=== PATIENT | male | born 1935 | race Caucasian/White ===

== ENCOUNTER → 2018-01-15 | Day surgery (SDC) | payer MEDICARE ==
[2018-01-11 11:06] VITALS: BMI 24.0
[~2018-01-15] MED LIST: ALPRAZolam 0.25 MG TAB PO PRN; ASPIRIN 325 MG TAB PO ONE; IOPAMIDOL-300 50ML BTL INJ ONE; IOPAMIDOL-370 100ML BTL INJ ONE; IOPAMIDOL-370 50ML BTL INJ ONE; LIDOCAINE 1% (PF) 10MG/ML VIAL SQ ONE; LIDOCAINE 1% INJ 10MG/ML (20 ML MDV) ONE; MIDAZOLAM 2 MG/2 ML VIAL IVP ONE; MIDAZOLAM 2 MG/2 ML VIAL ONE; SODIUM CHLORIDE 0.9% 1,000 ML IV ONE; SODIUM CHLORIDE 0.9% 1,000 ML IV SCH; SODIUM CHLORIDE 0.9% 1,000 ML in EMPTY BAG 1 BAG IV ONE; diphenhydrAMINE 50 MG/ML 1 ML VIAL IVP ONE; diphenhydrAMINE 50 MG/ML 1 ML VIAL ONE
[2018-01-15 10:06] VITALS: TEMP 98.3
--- NOTE | 2018-01-15 14:42 | CC ---
CARDIAC CATHETERIZATION REPORT DATE OF SERVICE: 01/15/2018. PROCEDURE: Left heart catheterization, coronary angiography, selective injection of bypass grafts and left ventriculography. PERFORMED BY: Dr. Swapna Riojas. Moderate conscious sedation time was 44 minutes. Patient was administered Versed and Benadryl in his oxygen saturation, EKG and hemodynamics were monitored closely. CLINICAL INFORMATION: Mr. Messi Pemberton is an 82-year-old gentleman with a recent diagnosis of atrial fibrillation which is persistent to chronic. He also has benign prostatic hypertrophy, status post prostate surgery. In 1996, he underwent aortocoronary bypass surgery with a RIDLEY to LAD, a vein graft to the diagonal, 2 separate vein grafts to the PDA and PLV branches of RCA. The ramus intermedius was disease-free and circumflex was small groove branch which was not grafted. RCA had a significant proximal disease. Surgery was performed in 1996. Because of significant symptoms of angina and a positive stress test with anterior as well as inferolateral reversible defect. He was advised coronary angiography. Risks, benefits, options and rationale were explained. PROCEDURE NOTE: Under local anesthesia and strict aseptic precautions, a 6-Guyanese introducer was placed in the right femoral artery. Using a standard left Paula catheter I performed selective coronary angiography of the left system. A Juan F catheter was used to perform selective coronary angiography of the cachil dehe RCA, the RIDLEY graft, the vein graft to the PDA branch of RCA. The vein graft to the PLV branch of RCA was also cannulated but the vein graft to the diagonal branch could not be located. I also tried with a AR 2 catheter but I did not find the vein graft to the diagonal branch. An LV-gram was performed in 30 degree ALBERT projection. Patient tolerated procedure well. The sheath was taken out and Angio-Seal device used to secure hemostasis and he was sent to the room in a stable condition. CARDIAC CATHETERIZATION FINDINGS: The left ventricular end-diastolic pressure was 8-10 mmHg with a gradient of less than 5 mmHg across the aortic valve. CORONARY ANGIOGRAPHY FINDINGS LEFT MAIN CORONARY ARTERY: There is a 15% stenosis or so in the left main at the ostium. No significant damping. This is a long vessel that trifurcates into LAD circumflex and ramus intermedius. Left main itself has no critical disease but there is an ostial 15%-20% narrowing noted. LEFT ANTERIOR DESCENDING CORONARY ARTERY: This vessel is totally occluded after diagonal branch that has a significant 70%-80% lesion which is chronic. The ramus intermedius is totally occluded and seen as a stump with limited antegrade flow. LEFT POSTERIOR CIRCUMFLEX CORONARY ARTERY: A small caliber vessel which runs mostly in the AV groove has a proximal lesion of 80% also chronic and left and the left circumflex comes off at a very acute angle. The left atrial circumflex also has some diffuse disease. RIGHT CORONARY ARTERY: This vessel is dominant, totally occluded after a conus branch which is free of significant disease. SAPHENOUS VEIN GRAFT TO THE PDA BRANCH OF RCA this graft is totally who has a proximal lesion in the body of the graft. The ostium is free of significant disease. The proximal body a 70% to 80% lesion the size of the graft is good. The insertion site is free of significant disease and this graft opacifies the entire PDA and also goes and fills the distal LAD almost up to the proximal 1/3. The entire LAD that is opacified does not seem to have significant disease. The RCA graft which is actually to the PDA branch of RCA is filling the a PDA branch to some extent. The PLV branch and also the LAD as well. The saphenous vein graft to the PLV branch of RCA this graft is totally occluded , seen as a stump saphenous vein graft to the diagonal branch of LAD. This graft is totally occluded, probably cannot be located. LEFT INTERNAL MAMMARY ARTERY GRAFT TO LAD this graft is widely patent at its origin at the site of insertion in the midportion there is a total occlusion with very limited antegrade flow. The diagonal branch that comes off also has a bridge that is extending from the proximal LAD at the site of insertion and this has a 70-80 percent lesion, but the diagonal is well opacified appears to be a good caliber to good distribution vessel. Lad also feels very late. So the diagonal branch is filling from the LAD graft and LAD insertion site is free of significant disease. Beyond it there is no antegrade flow, but diagonal is opacified and is a graftable vessel. LEFT VENTRICULOGRAM: This was performed in 30 degree ALBERT projection revealed left ventricle is of normal size with preserved contractility and estimated ejection fraction of 50% without any significant segmental wall motion abnormality. There is no significant mitral regurgitation noted. 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 The RIDLEY to LAD is patent but beyond insertion site the LAD is totally occluded, but it goes back and fills the diagonal with an 80% or more lesion which is well opacified. The vein graft to the PDA branch of RCA has a proximal 80% lesion distally. The PDA is free of significant disease and also goes back and fills by collaterals the entire LAD almost up to the proximal 1/3. Saphenous vein graft to the PLV branch of RCA is totally occluded. The saphenous vein graft to the diagonal branch of LAD was not located. LV-gram revealed ejection fraction of 50% without significant wall motion abnormalities, normal filling pressures and no significant gradient across aortic valve. RECOMMENDATION: I am recommending elective surgery but prior to that, we will check the carotid Doppler situation and echocardiogram and also do a vein mapping and also arterial mapping to see if he has enough conduit. He will need at least 3 grafts, one to the diagonal, one to the LAD and one to the PDA and PLV which will be a tricky graft because the same graft could probably be used as well. I discussed my thoughts in detail with the patient and family and I expect he will be discharged later on today and I will request Dr. Juan Mckeon to see the patient with regards to redo bypass surgery. MMODL / IJN: [id number] / MTDJuan
--- NOTE | 2018-01-15 15:11 | US ---
EXAMINATION TYPE: US carotid duplex BILAT DATE OF EXAM: 01/15/2018 COMPARISON: NONE CLINICAL HISTORY: preop open heart. HTN- controlled with meds. No hx if TIA or stroke. EXAM MEASUREMENTS: RIGHT: Peak Systolic Velocity (PSV) cm/sec ----- Right CCA: 100.7 ----- Right ICA: 151.0 ----- Right ECA: 141.5 ICA/CCA ratio: 1.5 RIGHT: End Diastole cm/sec ----- Right CCA: 16.0 ----- Right ICA: 40.6 ----- Right ECA: 0.0 LEFT: Peak Systolic Velocity (PSV) cm/sec ----- Left CCA: 92.0 ----- Left ICA: 93.0 ----- Left ECA: 82.7 ICA/CCA ratio: 1.0 LEFT: End Diastole cm/sec ----- Left CCA: 10.1 ----- Left ICA: 24.8 ----- Left ECA: 0.0 VERTEBRALS (direction of flow): Right Vertebral: No flow visualized Left Vertebral: Antegrade Rhythm: Arrhythmia Bilateral wall thickening. No significant stenosis. Elevated right prox ICA and right ECA. Plaque seen right bulb and mid/distal right CCA. IMPRESSION: 1. Atheromatous plaquing bilateral carotid bifurcations, greater on right. 2. Moderate stenosis between 50 and 69%, right proximal internal carotid artery. Criteria for Assigning % of Stenosis / Diameter reduction (Estimation based on the indirect measurements of the internal carotid artery velocities (ICA PSV). 1. Normal (no stenosis)=ICA PSV < 125 cm/s: ratio < 2.0: ICA EDV<40 cm/s. 2. Less than 50% stenosis=ICA PSV < 125 cm/s: ratio < 2.0: ICA EDV<40 cm/s. 3. 50 to 69% stenosis=ICA PSV of 125 to 230 cm/s: ration 2.0 ? 4.0: ICA EDV 40-100 cm/s. 4. Greater than 70% stenosis to near occlusion= ICA PSV > 230 cm/s: ratio > 4.0: ICA EDV > 100 cm/s. 5. Near occlusion= ICA PSV velocities may be low or undetectable: variable ratio and ICA EDV. 6. Total occlusion=unable to detect flow.
[2018-01-15 15:54] VITALS: RESP 16
[2018-01-15 15:56] VITALS: BP 111/76; PULSE 54
--- NOTE | 2018-01-15 17:12 | ECHOF ---
Referral Reason:OPEN HEART CONSULT MEASUREMENTS -------- HEIGHT: 180.3 cm WEIGHT: 83.0 kg BP: 112/70 RVIDd: 3.8 cm (< 3.3) IVSd: 1.5 cm (0.6 - 1.1) LVIDd: 5.4 cm (3.9 - 5.3) LVPWd: 1.3 cm (0.6 - 1.1) IVSs: 1.9 cm LVIDs: 3.7 cm LVPWs: 1.9 cm LA Diam: 4.8 cm (2.7 - 3.8) LAESV Index (A-L): 44.19 ml/m Ao Diam: 3.9 cm (2.0 - 3.7) AV Cusp: 2.4 cm (1.5 - 2.6) MV EXCURSION: 18.742 mm (> 18.000) MV EF SLOPE: 128 mm/s (70 - 150) EPSS: 0.3 cm MV E Rodrigo: 0.39 m/s MV DecT: 534 ms MV A Rodrigo: 0.64 m/s MV E/A Ratio: 0.61 AR PHT: 661 ms RAP: 5.00 mmHg RVSP: 26.36 mmHg FINDINGS -------- Sinus rhythm with extra systolic beats. This was a technically good study. The left ventricular size is normal. There is moderate concentric left ventricular hypertrophy. O verall left ventricular systolic function is low-normal with, an EF between 50 - 55 %. Basal inferi or LV wall motion is hypokinetic. Basal inferoseptal LV wall motion is hypokinetic. The right ventricle is mild to moderately enlarged. LA is severely dilated >40 ml/m2 The right atrium is normal in size. There is mild aortic valve sclerosis. There is mild aortic regurgitation. There is trace to mild mitral regurgitation. Mild tricuspid regurgitation present. Right ventricular systolic pressure is normal at < 35 mmHg. Trace/mild (physiologic) pulmonic regurgitation. The aortic root is dilated measuring 3.9cm. IVC Not well visulized. There is no pericardial effusion. CONCLUSIONS -------- 1. Sinus rhythm with extra systolic beats. 2. This was a technically good study. 3. The left ventricular size is normal. 4. There is moderate concentric left ventricular hypertrophy. 5. Overall left ventricular systolic function is low-normal with, an EF between 50 - 55 %. 6. Basal inferior LV wall motion is hypokinetic. 7. Basal inferoseptal LV wall motion is hypokinetic. 8. The right ventricle is mild to moderately enlarged. 9. LA is severely dilated >40 ml/m2 10. The right atrium is normal in size. 11. There is mild aortic valve sclerosis. 12. There is mild aortic regurgitation. 13. There is trace to mild mitral regurgitation. 14. Mild tricuspid regurgitation present. 15. Right ventricular systolic pressure is normal at < 35 mmHg. 16. Trace/mild (physiologic) pulmonic regurgitation. 17. The aortic root is dilated measuring 3.9cm. 18. IVC Not well visulized. 19. There is no pericardial effusion. CIVIL TRANSPORTATION ENGINEER: Sakina Yang RDCS
--- NOTE | 2018-01-16 15:32 | P.ARTDOP ---
Arterial Doppler Bilateral radial artery studies: Reason for study: preop CABG: Date of study: 01/15/2018 Doppler assessment shows no significant right to left or segmental pressure gradient. Digital plethysmography with radial artery compression shows no significant pressure changes Imaging shows the right to be between 3.6 x 3.7 and 4.4 x 4.2 mm. The left is between 4.2 x 4.2 and 4.2 x 3.6 mm. Usable bilateral radial arteries.
--- NOTE | 2018-01-16 15:35 | P.VSCSTY ---
Greater Saphenous Vein Mapping This is bilateral lower extremity greater saphenous vein mapping. Date of service 01/15/2018 Vein quality and ultrasound appearance no intraluminal thrombus or wall changes are seen. The left vein below the knee is too small for use as conduit. The left [id number] appears to be related to accessory vein.. Vein size groin right 5.4 x 5.2 groin left 3.8 x 3.7 High thigh right 4.2 x 5.1 high thigh left 2.6 x 3.9 Mid thigh right 4.2 x 5.4 mid thigh left 3.2 x 3.6 Above-knee right 3.4 x 5.0 above- knee left 2.8 x 2.6 Below knee right 3.8 x 5.0 below-knee left Mid calf right 2.2 x 2.6 mid calf left [] Ankle right 1.9 x 3.1 ankle left [] Impression right greater saphenous vein is usable. The left greater saphenous which is probably an accessory, may be usable above the knee..
== END | disposition home or self-care (01) ==
LOC: CATHCVL 09:22
PROVIDERS: ATTEND Internal Medicine Interventional Cardiology
DX: I25.110 Atherosclerotic heart disease of native coronary artery with unstable angina pectoris (principal); I25.710 Atherosclerosis of autologous vein coronary artery bypass graft(s) with unstable angina pectoris; I25.82 Chronic total occlusion of coronary artery; I10 Essential (primary) hypertension; I65.23 Occlusion and stenosis of bilateral carotid arteries; I08.3 Combined rheumatic disorders of mitral, aortic and tricuspid valves; Z72.0 Tobacco use; I49.5 Sick sinus syndrome; N40.0 Benign prostatic hyperplasia without lower urinary tract symptoms; Z95.1 Presence of aortocoronary bypass graft; E78.00 Pure hypercholesterolemia, unspecified; E78.5 Hyperlipidemia, unspecified; Z79.01 Long term (current) use of anticoagulants; Z79.82 Long term (current) use of aspirin; Z79.899 Other long term (current) drug therapy
CPT/HCPCS: 93306; 93459; 93930; 93970; 93923; 93880; C1760; C1769 ×2; J2250; J1200; J2001; Q9967 ×2

== ENCOUNTER → 2018-01-29 | Outpatient (CLI) | payer MEDICARE ==
[2018-01-29 09:37] LABS: HCT 42.6 % (39.0-53.0); MCH 29.5 pg (25.0-35.0); MCHC 32.8 g/dL (31.0-37.0); MCV 90.1 fL (80.0-100.0); Mean Platelet Volume 7.4; Platelet Count 182 k/uL (150-450); RBC 4.73 m/uL (4.30-5.90); RDW 13.5 % (11.5-15.5); WBC 5.3 k/uL (3.8-10.6)
[2018-01-29 09:48] LABS: Appearance,Urine Clear (Clear); Bilirubin,Urine Negative (Negative); Blood,Urine Trace (Negative); Color,Urine Yellow; Glucose,Urine (UA) Negative (Negative); Ketones,Urine Negative (Negative); Leukocyte Esterase,Urine Negative (Negative); Mucus,Urine Moderate /hpf; Nitrite,Urine Negative (Negative); PH, Urine 5.5 (5.0-8.0); Protein,Urine Trace (Negative); RBC,Urine 41 /hpf (0-5); Specific Gravity,Urine 1.022 (1.001-1.035); WBC,Urine 1 /hpf (0-5)
[2018-01-29 09:49] LABS: INR 1.1 (<1.2); Partial Thromboplastin Time 25.2 sec (22.0-30.0); Prothrombin Time 10.5 sec (9.0-12.0)
--- NOTE | 2018-01-29 10:09 | XR ---
EXAMINATION TYPE: XR chest 2V DATE OF EXAM: 01/29/2018 COMPARISON: NONE HISTORY: Presurgical study. TECHNIQUE: Frontal and lateral views of the chest are obtained. FINDINGS: Post-CABG changes with mediastinal clips and sternal wires is identified. There is eventra tion of the anterior aspect right hemidiaphragm. There is small left pleural effusion or pleural thic kening. Right lung is clear. The cardiac silhouette size is upper limits of normal with atherosclero tic aorta. The osseous structures are intact. Cholecystectomy clips are noted. IMPRESSION: Post CABG changes with small left pleural effusion or pleural thickening.
--- NOTE | 2018-01-29 12:49 | CT ---
EXAMINATION TYPE: CT chest wo con DATE OF EXAM: 01/29/2018 COMPARISON: NONE HISTORY: Pre OP CABG. No complaints at time of scan CT DLP: 462 mGycm. Automated Exposure Control for Dose Reduction was Utilized. TECHNIQUE: CT scan of the thorax is performed without IV contrast. FINDINGS: LUNGS: There is focal reticulonodular opacity posterior aspect right upper lobe near fissure axial im age 26 for reference. There is focal linear scarring and/or atelectasis in the left lung base adjacen t to small degree of pleural thickening. No suspicious noncalcified parenchymal nodules or masses are identified. There are scattered calcified right upper lobe nodules are granulomas as well as superio r right lower lobe calcified 3 mm nodule coronal image 58 There is no pleural effusion or pneumothora x seen. The tracheobronchial tree is patent. MEDIASTINUM: Lack of IV contrast is noted to limit evaluation for mediastinal and especially hilar ad enopathy. There are no definitive greater than 1 cm noncalcified hilar or mediastinal lymph nodes. Th ere are prominent but calcified right hilar and tracheobronchial lymph nodes. Finding consistent with product of old granulomatous disease. No cardiomegaly or pericardial effusion is seen. Left atrium is noted moderately dilated. Post CABG changes with mediastinal clips and sternal wires is present. E levated right hemidiaphragm is present. 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 Cholecystectomy clips are present. Small hiatal hernia is seen. Small degree of bilateral gynecomastia is noted. IMPRESSION: Chronic changes as detailed above. Cannot exclude some mild acute infiltrate posterior as pect right upper lobe, correlate clinically.
[2018-01-29 19:24] LABS: Hepatitis A Antibody IgM Non-Reactive (Non-Reactive); Hepatitis B Core IgM Non-Reactive (Non-Reactive)
[2018-01-29 19:29] LABS: Albumin 3.9 g/dL (3.80-4.90); Albumin/Globulin Ratio 1.95 (1.20-2.10); Calcium 8.7 mg/dL (8.7-10.3); LDL Cholesterol,Calculated 67.2 mg/dL (0.0-131.0); Magnesium 1.9 mg/dL (1.5-2.4); Total Bilirubin 0.6 mg/dL (0.3-1.2); Total Protein 5.9 g/dL (6.2-8.2); VLDL Calculation 21.8 mg/dL (5.00-40.00)
[2018-01-29 21:44] LABS: Hemoglobin A1C 5.6 % (4.0-6.0)
== END | disposition home or self-care (01) ==
LOC: LABWHC1 08:56
PROVIDERS: ATTEND Thoracic Surgery (Cardiothoracic Vascular Surgery)
DX: R06.02 Shortness of breath (principal); R91.8 Other nonspecific abnormal finding of lung field; Z95.1 Presence of aortocoronary bypass graft
CPT/HCPCS: 36415; 71046; 71250; 80053; 80061; 80074; 81001; 83036; 83735; 84443; 85027; 85610; 85730; 87070; 87086; 93922; 94150

== ENCOUNTER 2018-02-06 05:34 | Inpatient (IN) | payer MEDICARE ==
--- NOTE | 2018-02-05 14:59 | P.PN ---
Progress Note - Text Progress Note Date: 02/05/18 5 m walk test was completed on 01/29/2018. Time 1:2.48 seconds, time 2: 2.25 seconds, time 3: 2.38 seconds. STS risk score was calculated and discussed with the patient preoperatively by Dr. Mckeon.
[~2018-02-06 05:34] MED LIST changes: +ALBUMIN HUMAN 25% 50 ML IV ONE; +ALBUMIN HUMAN 5% 500 ML IVPB ONE; -ALPRAZolam 0.25 MG TAB PO PRN; +ATORVASTATIN 10 MG TAB PO ONE; +CALCIUM CHLORIDE 100 MG/ML 10 ML SYRINGE IV ONE; +CARDIOPLEGIC SOLN (K+ 16 MEQ/L 1,000 ML with SODIUM BICARB (1 MEQ/ML) 20 ML, LIDOCAINE ... PERFUSION ONE; +CHLORHEXIDINE GLUCONATE 15 ML CUP MUCOUS MEM ONE; +CLEVIDIPINE BUTYRATE 25 MG in EMPTY BAG 1 BAG IV ONE; +DILTIAZEM 50 MG in SODIUM CHLORIDE 0.9% 40 ML IV ONE; +HEPARIN SODIUM 1,000 UN/ML (10ML VL) IV ONE; +HEPARIN SODIUM,PORCINE 5,000 UNIT in SODIUM CHLORIDE 0.9% 500 ML 500 ML IV ONE; +INSULIN REGULAR 100 UNIT in SODIUM CHLORIDE 0.9% 100 ML IV ONE; -IOPAMIDOL-300 50ML BTL INJ ONE; -IOPAMIDOL-370 100ML BTL INJ ONE; -IOPAMIDOL-370 50ML BTL INJ ONE; +LACTATED RINGERS 1,000 ML IV ONE; -LIDOCAINE 1% (PF) 10MG/ML VIAL SQ ONE; -LIDOCAINE 1% INJ 10MG/ML (20 ML MDV) ONE; +MAGNESIUM SULFATE MG 500 MG/ML IV ONE; +MANNITOL 25% 12.5 GM/50 ML VIAL IV ONE; +METOPROLOL TARTRATE 12.5 MG TAB PO ONE; -MIDAZOLAM 2 MG/2 ML VIAL IVP ONE; -MIDAZOLAM 2 MG/2 ML VIAL ONE; +MUPIROCIN 2% OINT 22 GM TUBE NASAL ONE; +NITROGLYCERIN-D5W PMX 25 MG/250 ML BTL IV ONE; +NITROGLYCERIN-D5W PMX 50 MG in DEXTROSE/WATER 1 250ML.BAG IV ONE; +NOREPINEPHRINE 4 MG in SODIUM CHLORIDE 0.9% 250 ML IV ONE; +PAPAVERINE 360 MG in SODIUM CHLORIDE 0.9% 90 ML IV ONE; +PHENYLEPHRINE 40 MG in SODIUM CHLORIDE 0.9% 250 ML IV ONE; +PHENYLEPHRINE-0.9% NACL SYG 1 MG/10 ML SYRINGE IV ONE; +PROPOFOL 1,000 MG/100 ML VIAL IV ONE; +PROTAMINE SULFATE 10 MG/ML 25 ML VIAL IV ONE; +PROTAMINE SULFATE 250 MG in EMPTY BAG 1 BAG IV ONE; +SODIUM BICARB 8.4% 50 ML SYR (1 MEQ/ML) IV ONE; -SODIUM CHLORIDE 0.9% 1,000 ML IV SCH; -SODIUM CHLORIDE 0.9% 1,000 ML in EMPTY BAG 1 BAG IV ONE; +TRANEXAMIC ACID 2,000 MG in SODIUM CHLORIDE 0.9% 180 ML IV ONE; +ceFAZolin 1,000 MG in SODIUM CHLORIDE 0.9% IRRIGATIO 1,000 ML IRRIGATION ONE; +ceFAZolin 2,000 MG in SODIUM CHLORIDE 0.9% 30 ML IVPB ONE; -diphenhydrAMINE 50 MG/ML 1 ML VIAL IVP ONE; -diphenhydrAMINE 50 MG/ML 1 ML VIAL ONE
[2018-02-06] MEDS ORDERED: LACTATED RINGERS 1,000 ML IV SCH ×2 (06:03→14:16)
[2018-02-06] MEDS ORDERED: ALBUMIN HUMAN 5% 500 ML VIAL IVPB ONE (07:57)
[2018-02-06] MEDS ORDERED: VECURONIUM 10 MG VIAL IV ONE (07:57)
[2018-02-06] MEDS ORDERED: PROPOFOL 10 MG/ML 20 ML VIAL IV ONE (07:57)
[2018-02-06] MEDS ORDERED: SODIUM CHLORIDE 0.9% 250 ML BAG ONE (07:57)
[2018-02-06] MEDS ORDERED: HEPARIN SODIUM,PORCINE 10,000 UNIT/ML 1 ML VIAL ONE (07:57)
[2018-02-06] MEDS ORDERED: MIDAZOLAM 2 MG/2 ML VIAL ONE (07:57)
[2018-02-06] MEDS ORDERED: TRANEXAMIC ACID 1,000 MG/10 ML VIAL ONE (07:57)
[2018-02-06] MEDS ORDERED: fentaNYL (PF) 50 MCG/ML 2 ML AMP ONE (07:57)
[2018-02-06] MEDS ORDERED: SODIUM BICARB 8.4% 50 ML SYR (1 MEQ/ML) ONE (07:57)
[2018-02-06] MEDS ORDERED: POTASSIUM CHLORIDE OPEN HEART 20 MEQ/50 ML BAG IVPB ONE (07:57)
[2018-02-06] MEDS ORDERED: SODIUM CHLORIDE 0.9% IRRIG 1,000 ML BTL IRRIGATION ONE (07:57)
[2018-02-06] MEDS ORDERED: CALCIUM CHLORIDE 100 MG/ML 10 ML SYRINGE ONE (07:57)
[2018-02-06] MEDS ORDERED: PROTAMINE SULFATE 10 MG/ML 5 ML VIAL IV ONE (07:57)
[2018-02-06] MEDS ORDERED: ePHEDrine SULFATE/0.9% NACL/PF 50 MG/5 ML SYRINGE IV ONE (07:57)
[2018-02-06] MEDS ORDERED: DILTIAZEM 5 MG/ML 5 ML VIAL ONE (07:57)
[2018-02-06] MEDS ORDERED: fentaNYL (PF) 50 MCG/ML 50 ML VIAL ONE (07:57)
[2018-02-06] MEDS ORDERED: CARDIOPLEGIC SOLN (K+ 16 MEQ/L 1,000 ML with SODIUM BICARB (1 MEQ/ML) 20 ML, LIDOCAINE ... PERFUSION ONE ×6 (08:00)
[2018-02-06 08:32] LABS: ABG Base Excess 1.1 mmol/L; ABG HCO3 26 mmol/L (21-25); ABG Oxygen Saturation 99.9 % (94-97); ABG PCO2 43 mmHg (35-45); ABG PO2 293 mmHg (83-108); ABG Potassium Whole Blood 3.9 mmol/L (3.4-4.5); ABG Sodium Whole Blood 144 mmol/L (135-146); ABG TCO2 28 mmol/L (19-24)
[2018-02-06 09:06] LABS: ABG Base Excess -0.8 mmol/L; ABG HCO3 27 mmol/L (21-25); ABG Oxygen Saturation 99.7 % (94-97); ABG PCO2 57 mmHg (35-45); ABG PH 7.29 (7.35-7.45); ABG PO2 256 mmHg (83-108); ABG Potassium Whole Blood 3.9 mmol/L (3.4-4.5); ABG Sodium Whole Blood 144 mmol/L (135-146); ABG TCO2 29 mmol/L (19-24)
[2018-02-06 09:36] LABS: ABG Base Excess -2.5 mmol/L; ABG HCO3 24 mmol/L (21-25); ABG Oxygen Saturation 99.8 % (94-97); ABG PCO2 47 mmHg (35-45); ABG PH 7.32 (7.35-7.45); ABG PO2 277 mmHg (83-108); ABG Potassium Whole Blood 3.8 mmol/L (3.4-4.5); ABG Sodium Whole Blood 145 mmol/L (135-146); ABG TCO2 25 mmol/L (19-24)
[2018-02-06 10:35] LABS: ABG Base Excess -1.3 mmol/L; ABG HCO3 24 mmol/L (21-25); ABG Oxygen Saturation 99.9 % (94-97); ABG PCO2 39 mmHg (35-45); ABG PH 7.39 (7.35-7.45); ABG PO2 298 mmHg (83-108); ABG Potassium Whole Blood 3.9 mmol/L (3.4-4.5); ABG Sodium Whole Blood 144 mmol/L (135-146); ABG TCO2 25 mmol/L (19-24)
[2018-02-06 11:16] LABS: ABG Base Excess -3.1 mmol/L; ABG HCO3 22 mmol/L (21-25); ABG PCO2 40 mmHg (35-45); ABG PH 7.35 (7.35-7.45); ABG PO2 291 mmHg (83-108); ABG Potassium Whole Blood 3.7 mmol/L (3.4-4.5); ABG Sodium Whole Blood 144 mmol/L (135-146); ABG TCO2 24 mmol/L (19-24)
[2018-02-06 11:47] LABS: ABG Base Excess -4.8 mmol/L; ABG HCO3 22 mmol/L (21-25); ABG Oxygen Saturation 99.5 % (94-97); ABG PCO2 46 mmHg (35-45); ABG PH 7.29 (7.35-7.45); ABG PO2 206 mmHg (83-108); ABG Potassium Whole Blood 3.5 mmol/L (3.4-4.5); ABG Sodium Whole Blood 145 mmol/L (135-146); ABG TCO2 23 mmol/L (19-24)
[2018-02-06 12:34] LABS: ABG Base Excess -2.5 mmol/L; ABG HCO3 23 mmol/L (21-25); ABG Oxygen Saturation 99.4 % (94-97); ABG PCO2 42 mmHg (35-45); ABG PH 7.35 (7.35-7.45); ABG PO2 155 mmHg (83-108); ABG Potassium Whole Blood 3.3 mmol/L (3.4-4.5); ABG Sodium Whole Blood 145 mmol/L (135-146); ABG TCO2 24 mmol/L (19-24)
[2018-02-06 13:39] LABS: ABG Base Excess -2.9 mmol/L; ABG HCO3 23 mmol/L (21-25); ABG Oxygen Saturation 98.6 % (94-97); ABG PCO2 43 mmHg (35-45); ABG PH 7.33 (7.35-7.45); ABG PO2 119 mmHg (83-108); ABG Potassium Whole Blood 3.7 mmol/L (3.4-4.5); ABG Sodium Whole Blood 144 mmol/L (135-146); ABG TCO2 24 mmol/L (19-24)
[2018-02-06] MEDS ORDERED: ONDANSETRON 4 MG/2 ML VIAL IVP PRN (14:16)
[2018-02-06] MEDS ORDERED: IPRATROPIUM-ALBUTEROL 3 ML NEB INHALATION PRN (14:16)
[2018-02-06] MEDS ORDERED: NITROGLYCERIN-D5W PMX 50 MG in DEXTROSE/WATER 1 250ML.BAG IV SCH (14:16)
[2018-02-06] MEDS ORDERED: Potassium Replacement Protocol 1 EACH MISC MISCELLANE PRN (14:16)
[2018-02-06] MEDS ORDERED: ALBUMIN HUMAN 5% 250 ML in EMPTY BAG 1 BAG IVPB PRN (14:16)
[2018-02-06] MEDS ORDERED: BENZOCAINE/MENTHOL LOZENG 1 EACH LOZENGE MUCOUS MEM PRN (14:16)
[2018-02-06] MEDS ORDERED: INSULIN REGULAR 100 UNIT in SODIUM CHLORIDE 0.9% 100 ML IV SCH (14:16)
[2018-02-06] MEDS ORDERED: Magnesium Replacement Protocol 1 EACH MISC MISCELLANE PRN (14:16)
[2018-02-06] MEDS ORDERED: AMIODARONE 450 MG in DEXTROSE 5% IN WATER 250 ML IV PRN ×2 (14:16)
[2018-02-06] MEDS ORDERED: MORPHINE SULFATE 2 MG/ML SYRINGE IVP PRN (14:16)
[2018-02-06] MEDS ORDERED: PROPOFOL 1,000 MG in EMPTY BAG 1 BAG IV SCH (14:16)
[2018-02-06] MEDS ORDERED: DEXTROSE 5% IN WATER 100 ML with AMIODARONE 150 MG IV PRN (14:16)
[2018-02-06] MEDS ORDERED: Phosphorus Replacement Protoco 1 EACH MISC MISCELLANE PRN (14:16)
--- NOTE | 2018-02-06 14:18 | P.OP ---
Date of Procedure: 02/06/18 Preoperative Diagnosis: Coronary artery arterial sclerosis, history of coronary artery bypass grafting, atherosclerosis of bypass grafts. Postoperative Diagnosis: Same Procedure(s) Performed: Redo sternotomy, off-pump CABG 3 with saphenous vein graft to posterior descending coronary artery, left radial artery to LAD with T graft left radial artery to diagonal. Endovascular vein harvest of the right greater saphenous vein.. Endovascular left radial artery harvest. Anesthesia: GETA Surgeon: Juan Mckeon Jewel Hole Driller #1: Misha Adler Estimated Blood Loss (ml): 1,800 Urine output (ml): 350 Pathology: other (Saphenous vein graft) Condition: stable Disposition: ICU Indications for Procedure: 82-year-old man with progressive anginal symptomatology. History of previous coronary bypass surgery. Cardiac catheterization demonstrated patent RIDLEY to the proximal LAD with complete occlusion of the LAD beyond the anastomosis. The RIDLEY back filled the proximal LAD for a short distance and then filled a large diagonal branch. A large diagonal branch had an independent tight stenosis at its orifice. The right coronary artery distribution was filled via vein grafts but there was diffuse disease in the proximal portion of the vein graft up to 80% stenosis. The posterior descending coronary artery filled the LAD through collaterals. There was also disease of a relatively small circumflex coronary system. Ventricular function was reasonably preserved. Redo coronary bypass grafting was requested by Dr. AMBER Riojas. Operative Findings: There were diffuse adhesions present throughout the chest cavity. Majority of these needed to be taken down sharply. There was a large left internal mammary artery fluid present. This led to the proximal LAD. The left pleural space was completely fused. Right pleural space was free. It was a patent vein graft to the distal right coronary artery just before its bifurcation. Was an occluded saphenous vein graft to a relatively small posterior lateral branch. The vein graft to the diagonal was completely occluded. There was no previous grafted circumflex system. Saphenous vein was harvested from the right lower extremity and was relatively large. Smaller portion from the lower portion of the leg was used. Left radial artery was harvested and was an excellent conduit. Description of Procedure: Patient was brought to the operating room, placed supine on the operating table , anesthetized and intubated. The anterior torso lower extremities and left upper extremity were sterilely prepped and brick draped. Saphenous vein was harvested from the right lower extremity using endoscopic vein harvest technique. The greater saphenous vein was harvested from mid calf to groin. Simultaneously the left radial artery was harvested using endovascular vein harvest technique. Simultaneous to this redo sternotomy was performed. The old scar was excised. Incision was carried down to the sternum. The sternal wires were identified and freed. Sternal wires were cut and then the bone was divided in the midline with the redo saw. The sternal wires were then excised. Posterior leaves of the sternum were densely adherent to the heart. Careful dissection was carried out over the right ventricle on the left side of the hemisternum and then attention was directed to the right side of the hemisternum the right pleural space was entered and opened widely and drained with a 32-Moroccan chest tube. Rultract retractor was then placed on the left than the left hemisternum retracted upwards. We carefully dissected back into the left pleural space. The left pleural space was completely fused. It was mobilized anteriorly beyond the pericardium. It was then drained with a 32- Moroccan chest tube. Left internal mammary artery was identified and dissected out fairly proximally as it crossed in front of the lung. It was a very large vessel at least 6 mm in diameter. Rultract was now removed in standard sternal retractor was placed. Slow tedious dissection was carried out to completely free the heart from the surrounding investing scar tissue. The vein grafts to the right side of the heart were identified. Care was taken not to injure or manipulate the patent vein graft to the distal right coronary artery. The old occluded vein graft to the posterior lateral branch was divided. Dissection was carried up onto the aorta and the vein graft to the diagonal was identified. This was left alone. The aorta was dissected out. The targets were identified. The PDA LAD and diagonal were all 3 large vessels. Posterior lateral branch was a small vessel AB 1.5 mm in diameter but diffusely diseased and calcified. It was not felt to be an appropriate target. The obtuse marginal branches were very small less than 1.5 mm in diameter and not felt to be appropriate targets. Was decided to go ahead and graft the LAD to diagonal and the PDA. We started with the PDA. The lower leg segment of vein was used as it was of reasonable diameter about 4-5 mm in diameter. The thigh vein was quite large, greater than 6 mm in diameter. The lower leg segment was loaded on passport anastomotic connector and connected to the ascending aorta. It was brought around the right side of the heart to the PDA. The PDA was stabilized and opened. Blood flow was controlled with a 2 mm flow through. Anastomosis of the vein graft to the PDA was performed with running 7-0 Prolene. On completion of the anastomosis, flow through was removed effectively probing the proximal distal portion anastomosis. Suture was tied with good resultant hemostasis. Inflow was open and the graft was noted to lay well with excellent length and no evidence of leak. The old right coronary graft was now ligated to prevent issues of competitive flow. The RIDLEY had been mobilized. Inflow was occluded and it was opened in a longitudinal fashion for a distance of about a centimeter. The left radial artery was anastomosed to the RIDLEY in side to end fashion in order to create a proximal inflow to the left radial artery. During the period of LAD occlusion, there was some drop in the blood pressure as well as some increase in mitral regurgitation noted on the JASIEL. As soon as we were completed with the proximal anastomosis of the radial, bulldog clamp was moved off the RIDLEY onto the radial artery and the inflow to the RIDLEY was reestablished. Blood pressure immediately rebounded and the mitral regurgitation gradually returned to baseline. Radial artery was cut to appropriately to reach the LAD. The LAD was a 2 mm vessel with diffuse disease present. It was grafted at a soft spot. Here a 2 mm probe easily went to the apex. Proximally a 2 mm probe did not pass. Radial to LAD anastomosis was performed with running 7-0 Prolene suture. Completion anastomosis a 1.5 mm flow through which had been used to control flow blood was removed. Suture was tied with good result and hemostasis and the inflow was open. Graft was noted to lay well without kinking with good length and was no hemostatic issues. The left radial artery was then reoccluded and bulldog clamps placed proximally and distally. Was opened in a longitudinal fashion and the remaining portion of the left radial artery was anastomosed as a T graft. Anastomosis was performed with running 7-0 Prolene suture in a side to end fashion. Bulldog clamps were then removed from the left radial artery proximally and distally and good flow was noted in the side branch this was controlled with a bulldog clamp. This was brought to the diagonal. The diagonal was stabilized and opened. It was a 2 mm soft vessel. Blood flow was controlled with a 2 mm flow through. In side anastomosis of the left radial artery to the diagonal was performed with running 7-0 Prolene suture. Completion anastomosis flow through was removed 50 probe the proximal distal portion anastomosis. Suture was tied with good result and hemostasis and the graft was noted to lay well. We again looked at the back wall the heart and could find no appropriate targets for the remaining pieces of saphenous vein graft. Was decided to complete the operation with 3 grafts. Heparin was reversed with protamine. Good hemostasis was obtained throughout. Bilateral pleural spaces aortic been drained with 32-Moroccan chest tubes and now 2 36 mediastinal tubes were placed in the mediastinum. Chest was irrigated with antibiotic solution. Once good hemostasis and been accomplished the sternum was closed with 8 sternal wires. Fascia was closed with 0 Ethibond. Subcutaneous and subcuticular layers with layers of Vicryl suture. Dry sterile dressings were applied and the patient was transferred to ICU in stable condition. Patient did not require any blood transfusions. Blood loss was 1800cc but 750 mL of Cell Saver was returned. Final hematocrit was 30%. No inotropic support was used throughout. The patient was maintained on a Cardizem drip to prevent spasm of the radial artery.
[2018-02-06 14:21] LABS: Glucose,Whole Blood 121 mg/dL (75-99)
[2018-02-06] MEDS: DILTIAZEM 50 MG in SODIUM CHLORIDE 0.9% 40 ML IV SCH (14:30)
[2018-02-06 14:47] LABS: INR 1.3 (<1.2); Partial Thromboplastin Time 30.8 sec (22.0-30.0); Prothrombin Time 12.6 sec (9.0-12.0)
--- NOTE | 2018-02-06 14:51 | P.CNPUL ---
History of Present Illness Consult date: 02/06/18 Reason for consult: other Chief complaint: Postoperative ventilator management, status post bypass grafting History of present illness: Pulmonary/critical care consult dated 02/06/2018 This is an 82-year-old male who is status post redo bypass grafting. The surgery was done by Dr. Mckeon. He's postop day #0. He had a right renal artery to LAD bypass, left radial artery to diagonal coronary artery, and SVG to PDA bypass. The patient is currently back in the intensive care unit. He is on the ventilator on the SIMV mode, rate 12, tidal volume 600, FiO2 100%, and PEEP of 5. Blood gases are currently pending. The patient's currently on lactated Ringer's at 50 mL an hour Cardizem drip at 5 mg an hour propofol at 25 mics per kilogram per minute and nitroglycerin at 5 mcg/m. The patient has some mild valvular heart disease is wall. The patient was recently having some exertional anginal symptoms while hiking [email or web address]. This is increased since that time. For that reason, he was seen by cardiology and had a catheterization and was sent to see Dr. Mckeon. His history is positive for previous bypass grafting, hernia repair, cholecystectomy, hyperlipidemia, hypertension, arthritis, and CAD. Review of Systems ROS unobtainable: due to endotracheal tube Past Medical History Past Medical History: Atrial Fibrillation, Coronary Artery Disease (CAD), Chest Pain / Angina, Hyperlipidemia, Hypertension History of Any Multi-Drug Resistant Organisms: None Reported Past Surgical History: Cholecystectomy, Coronary Bypass/CABG, Heart Catheterization, Prostate Surgery Additional Past Surgical History / Comment(s): TURP,CABG 4 vessel 1996 Past Anesthesia/Blood Transfusion Reactions: No Reported Reaction Additional Past Anesthesia/Blood Transfusion Reaction / Comment(s): "not sure if had prior blood transfusion with previos open heart surgery",no problems if any was given. Smoking Status: Former smoker - Past Family History Father Family Medical History: Cancer Medications and Allergies Home Medications Medication Instructions Recorded Confirmed Type Apixaban [Eliquis] 2.5 mg PO DAILY 01/11/18 02/06/18 History Aspirin [Adult Low Dose Aspirin EC] 81 mg PO DAILY 01/11/18 01/29/18 History Isosorbide Mononitrate [Isosorbide 30 mg PO DAILY 01/11/18 01/29/18 History Mononitrate ER] Omeprazole 20 mg PO DAILY 01/11/18 01/29/18 History Simvastatin [Zocor] 20 mg PO HS 01/11/18 01/29/18 History Vit C/E/Zn/Coppr/Lutein/Zeaxan 1 each PO DAILY 01/11/18 01/29/18 History [Preservision Areds 2 Softgel] amLODIPine BESYLATE 5 mg PO HS 01/11/18 01/29/18 History Metoprolol Tartrate [Lopressor] 12.5 mg PO DAILY #60 dose 01/15/18 01/29/18 Rx Allergies Allergy/AdvReac Type Severity Reaction Status Date / Time No Known Allergies Allergy Verified 02/06/18 05:56 Physical Exam Osteopathic Statement: *. No significant issues noted on an osteopathic structural exam other than those noted in the History and Physical/Consult. Vitals: Vital Signs Temp Pulse Resp BP BP Pulse Ox 02/06/18 06:01 97.1 F L 58 L 16 185/88 169/79 97 Intake and Output 02/05/18 02/06/18 02/06/18 22:59 06:59 14:59 Intake Total 33 Output Total 2150 Balance -2117 Intake: IV 33 Output: Urine 350 Estimated Blood Loss 1800 Other: Weight 84.141 kg No acute distress, sedated, with an orally placed endotracheal tube and NG tube. HEENT examination is grossly unremarkable. Mucous membranes are moist. Neck supple. Full range of motion. No adenopathy thyromegaly or neck vein distention. Cardiovascular examination reveals regular rhythm rate. S1-S2 normal. No S3 or S4. No discernible murmur noted. Heart sounds are distant. Heart rate is 88 bpm. Lungs reveal mostly clear breath sounds. A few scattered rhonchi. No wheezes. No crackles. Breath sounds equal bilaterally. Abdomen soft and bowel sounds are not heard. No masses appreciated. Extremities are intact. No cyanosis clubbing or edema. Extremities are cool. Skin is without rash or lesion. Neurologic examination could not be adequately assessed. Results - Laboratory Findings ABG ABG pH 7.33 (7.35-7.45) L 02/06/18 13:37 ABG pCO2 43 mmHg (35-45) 02/06/18 13:37 ABG pO2 119 mmHg (83-108) H 02/06/18 13:37 ABG O2 Saturation 98.6 % (94-97) H 02/06/18 13:37 Abnormal lab findings: Abnormal Labs 01/29/18 02/06/18 02/06/18 09:00 08:31 09:04 ABG pH 7.29 L ABG pCO2 57 H ABG pO2 293 H 256 H ABG HCO3 26 H 27 H ABG Total CO2 28 H 29 H ABG O2 Saturation 99.9 H 99.7 H ABG Hematocrit ABG Potassium ABG Ionized Calcium ABG Glucose Hemoglobin 12.9 L POC Glucose (mg/dL) Arterial Blood Potassium Arterial Blood Glucose Crossmatch See Detail 02/06/18 02/06/18 02/06/18 09:34 10:33 11:14 ABG pH 7.32 L ABG pCO2 47 H ABG pO2 277 H 298 H 291 H ABG HCO3 ABG Total CO2 25 H 25 H ABG O2 Saturation 99.8 H 99.9 H 100.0 H ABG Hematocrit 32 L 30 L ABG Potassium ABG Ionized Calcium 4.3 L 4.2 L 4.1 L ABG Glucose 101 H 103 H 105 H Hemoglobin 11.4 L 10.5 L 9.9 L POC Glucose (mg/dL) Arterial Blood Potassium Arterial Blood Glucose 101 H 103 H 105 H Crossmatch 02/06/18 02/06/18 02/06/18 11:45 12:33 13:37 ABG pH 7.29 L 7.33 L ABG pCO2 46 H ABG pO2 206 H 155 H 119 H ABG HCO3 ABG Total CO2 ABG O2 Saturation 99.5 H 99.4 H 98.6 H ABG Hematocrit 32 L 31 L 31 L ABG Potassium 3.3 L ABG Ionized Calcium 4.1 L ABG Glucose 117 H 111 H 121 H Hemoglobin 10.3 L 10.0 L 10.0 L POC Glucose (mg/dL) Arterial Blood Potassium 3.3 L Arterial Blood Glucose 117 H 111 H 121 H Crossmatch 02/06/18 14:18 ABG pH ABG pCO2 ABG pO2 ABG HCO3 ABG Total CO2 ABG O2 Saturation ABG Hematocrit ABG Potassium ABG Ionized Calcium ABG Glucose Hemoglobin POC Glucose (mg/dL) 121 H Arterial Blood Potassium Arterial Blood Glucose Crossmatch - Diagnostic Findings Chest x-ray: report reviewed, image reviewed (Chest x-ray, labs and medications are reviewed.) Assessment and Plan Assessment: Assessment Postop day #0, status post redo three-vessel bypass grafting Routine postoperative ventilatory management. History of hypertension History of hyperlipidemia Previous history of bypass grafting, 1996 History of coronary artery disease History of DJD Plan: Plan dated 02/06/2018 The patient's blood gases currently pending. The chest x-ray and labs will be reviewed. The patient was examined. The H&P from Dr. Mckeon was reviewed. The patient appears to be relatively stable at this point. The patient remains on Cardizem 5 mg an hour, propofol 25 mcg/kg/m, and nitroglycerin at 5 mcg/m. In addition, the patient is on the SIMV mode, rate 12, tidal volume 600, FiO2 100% and PEEP of 5. Blood gases are pending. Vent settings will be adjusted accordingly. Additional recommendations and suggestions are forthcoming. Time with Patient: Greater than 30
--- NOTE | 2018-02-06 14:52 | XR ---
EXAMINATION TYPE: XR chest 1V portable DATE OF EXAM: 02/06/2018 HISTORY: Post Op CABG COMPARISON: 01/29/2018 TECHNIQUE: Single view of the chest is submitted. FINDINGS: Endotracheal tube, NG tube, SG catheter, mediastinal drains and chest tubes are appropriately placed. Post operative changes of CABG. No sizeable pneumothorax. Scattered Pleural-parenchymal opacities may reflect atelectasis. The heart is not enlarged. IMPRESSION: 1. Post operative changes of CABG.
[2018-02-06 14:53] LABS: Ionized Calcium 4.9 mg/dL (4.5-5.3)
[2018-02-06 14:56] LABS: Basophils % (A) 0 %; Eosinophils # (A) 0.1 k/uL (0-0.7); Eosinophils % (A) 1 %; HCT 31.6 % (39.0-53.0); Lymphocytes # (A) 0.9 k/uL (1.0-4.8); Lymphocytes % (A) 9 %; MCH 29.9 pg (25.0-35.0); MCHC 33.3 g/dL (31.0-37.0); MCV 89.8 fL (80.0-100.0); Mean Platelet Volume 7.5; Monocytes # (A) 0.3 k/uL (0-1.0); Monocytes % (A) 3 %; Neutrophils # (A) 8.6 k/uL (1.3-7.7); Neutrophils % (A) 87 %; Platelet Count 109 k/uL (150-450); RBC 3.52 m/uL (4.30-5.90); RDW 13.5 % (11.5-15.5); WBC 9.8 k/uL (3.8-10.6)
[2018-02-06 14:59] LABS: HGB 10.5 gm/dL (13.0-17.5)
[2018-02-06 14:59] LABS: ABG Base Excess -2.4 mmol/L; ABG HCO3 24 mmol/L (21-25); ABG PCO2 45 mmHg (35-45); ABG PH 7.33 (7.35-7.45); ABG PO2 395 mmHg (83-108); ABG TCO2 25 mmol/L (19-24)
[2018-02-06 15:07] LABS: ALT 27 U/L (21-72); AST 23 U/L (17-59); Albumin 3.2 g/dL (3.5-5.0); Alkaline Phosphatase 32 U/L (38-126); Anion Gap 6 mmol/L; Blood Urea Nitrogen 18 mg/dL (9-20); Calcium 8.3 mg/dL (8.4-10.2); Carbon Dioxide 24 mmol/L (22-30); Chloride 113 mmol/L (98-107); Glucose 119 mg/dL (74-99); Magnesium 1.5 mg/dL (1.6-2.3); Potassium 3.7 mmol/L (3.5-5.1); Sodium 143 mmol/L (137-145); Total Bilirubin 1.4 mg/dL (0.2-1.3); Total Protein 5.2 g/dL (6.3-8.2)
[2018-02-06 15:12] LABS: Glucose,Whole Blood 125 mg/dL (75-99)
[2018-02-06] MEDS: ACETAMINOPHEN IV (For NPO) 1,000 MG in EMPTY BAG 1 BAG IVPB SCH ×2 (15:18→21:19)
[2018-02-06] MEDS: ceFAZolin IN SWFI 2 GM/20 ML SYRINGE IVP SCH ×2 (15:26→23:09)
[2018-02-06] MEDS: POTASSIUM CHLORIDE 10 MEQ in WATER FOR INJECTION 1 100ML.BAG IVPB SCH ×2 (16:06→17:17)
[2018-02-06] MEDS: MAGNESIUM SULFATE-D5W PMX 1 GM in DEXTROSE/WATER 1 100ML.BAG IVPB SCH ×2 (16:06→17:17)
[2018-02-06] MEDS: IPRATROPIUM-ALBUTEROL 3 ML NEB INHALATION SCH ×4 (16:14→20:13)
[2018-02-06 16:50] LABS: Glucose,Whole Blood 127 mg/dL (75-99)
[2018-02-06 17:04] LABS: Glucose,Whole Blood 146 mg/dL (75-99)
[2018-02-06] MEDS: CLEVIDIPINE BUTYRATE 25 MG in EMPTY BAG 1 BAG IV SCH ×2 (17:47→20:30)
[2018-02-06 18:11] LABS: ABG HCO3 22 mmol/L (21-25); ABG Oxygen Saturation 99.2 % (94-97); ABG PCO2 39 mmHg (35-45); ABG PH 7.37 (7.35-7.45); ABG PO2 118 mmHg (83-108); ABG TCO2 24 mmol/L (19-24)
[2018-02-06 18:12] LABS: Glucose,Whole Blood 142 mg/dL (75-99)
[2018-02-06 18:24] LABS: Basophils % (A) 0 %; Eosinophils # (A) 0.1 k/uL (0-0.7); Eosinophils % (A) 0 %; HCT 32.7 % (39.0-53.0); HGB 10.8 gm/dL (13.0-17.5); Lymphocytes # (A) 0.7 k/uL (1.0-4.8); Lymphocytes % (A) 6 %; MCH 29.7 pg (25.0-35.0); MCHC 33.1 g/dL (31.0-37.0); MCV 89.6 fL (80.0-100.0); Mean Platelet Volume 7.7; Monocytes # (A) 0.6 k/uL (0-1.0); Monocytes % (A) 6 %; Neutrophils # (A) 10.2 k/uL (1.3-7.7); Neutrophils % (A) 87 %; Platelet Count 129 k/uL (150-450); RBC 3.65 m/uL (4.30-5.90); RDW 13.6 % (11.5-15.5); WBC 11.7 k/uL (3.8-10.6)
[2018-02-06 19:07] LABS: Glucose,Whole Blood 145 mg/dL (75-99)
[2018-02-06] MEDS: HEPARIN SODIUM,PORCINE 5,000 UNIT/ML 1 ML VIAL SQ SCH (20:13)
[2018-02-06 20:48] LABS: Glucose,Whole Blood 127 mg/dL (75-99)
[2018-02-06 21:07] LABS: Glucose,Whole Blood 119 mg/dL (75-99)
[2018-02-06 22:30] LABS: Glucose,Whole Blood 125 mg/dL (75-99)
[2018-02-06 23:31] LABS: Glucose,Whole Blood 120 mg/dL (75-99)
[2018-02-07 00:49] LABS: Glucose,Whole Blood 112 mg/dL (75-99)
[2018-02-07] MEDS: DILTIAZEM 50 MG in SODIUM CHLORIDE 0.9% 40 ML IV SCH ×2 (01:12→05:28)
[2018-02-07 01:42] LABS: Glucose,Whole Blood 117 mg/dL (75-99)
[2018-02-07 02:08] LABS: Glucose,Whole Blood 118 mg/dL (75-99)
[2018-02-07] MEDS: ACETAMINOPHEN IV (For NPO) 1,000 MG in EMPTY BAG 1 BAG IVPB SCH ×4 (02:20→18:13)
[2018-02-07 03:23] LABS: Glucose,Whole Blood 110 mg/dL (75-99)
[2018-02-07 04:06] LABS: Glucose,Whole Blood 117 mg/dL (75-99)
[2018-02-07] MEDS: HEPARIN SODIUM,PORCINE 5,000 UNIT/ML 1 ML VIAL SQ SCH ×3 (04:10→21:20)
[2018-02-07 05:56] LABS: Basophils % (A) 0 %; Eosinophils # (A) 0.1 k/uL (0-0.7); Eosinophils % (A) 1 %; HCT 33.4 % (39.0-53.0); Lymphocytes # (A) 1.3 k/uL (1.0-4.8); Lymphocytes % (A) 13 %; MCH 29.5 pg (25.0-35.0); MCV 89.6 fL (80.0-100.0); Monocytes # (A) 0.5 k/uL (0-1.0); Monocytes % (A) 5 %; Neutrophils # (A) 7.6 k/uL (1.3-7.7); Neutrophils % (A) 79 %; Platelet Count 112 k/uL (150-450); RBC 3.73 m/uL (4.30-5.90); RDW 13.8 % (11.5-15.5); WBC 9.6 k/uL (3.8-10.6)
[2018-02-07 06:04] LABS: INR 1.3 (<1.2); Partial Thromboplastin Time 28.7 sec (22.0-30.0); Prothrombin Time 12.1 sec (9.0-12.0)
[2018-02-07 06:15] LABS: Ionized Calcium 4.9 mg/dL (4.5-5.3)
[2018-02-07 06:20] LABS: Glucose,Whole Blood 114 mg/dL (75-99)
[2018-02-07 06:42] LABS: ALT 20 U/L (21-72); AST 43 U/L (17-59); Albumin 3.4 g/dL (3.5-5.0); Alkaline Phosphatase 33 U/L (38-126); Anion Gap 8 mmol/L; Blood Urea Nitrogen 20 mg/dL (9-20); Calcium 8.6 mg/dL (8.4-10.2); Carbon Dioxide 22 mmol/L (22-30); Chloride 111 mmol/L (98-107); Glucose 109 mg/dL (74-99); Magnesium 1.9 mg/dL (1.6-2.3); Potassium 4.5 mmol/L (3.5-5.1); Sodium 141 mmol/L (137-145); Total Bilirubin 1.5 mg/dL (0.2-1.3); Total Protein 5.5 g/dL (6.3-8.2)
[2018-02-07] MEDS ORDERED: Magnesium Replacement Protocol 1 EACH MISC MISCELLANE PRN (07:12)
[2018-02-07 07:29] LABS: Glucose,Whole Blood 116 mg/dL (75-99)
[2018-02-07] MEDS: IPRATROPIUM-ALBUTEROL 3 ML NEB INHALATION SCH ×4 (08:03→20:44)
[2018-02-07 08:20] LABS: Glucose,Whole Blood 112 mg/dL (75-99)
[2018-02-07] MEDS: PANTOPRAZOLE 40 MG TABLET PO SCH (08:31)
[2018-02-07] MEDS: KETOROLAC 30 MG/ML 1 ML VIAL IVP PRN ×3 (08:31→20:54)
[2018-02-07] MEDS: ASPIRIN 325 MG TAB PO SCH (08:31)
[2018-02-07] MEDS: MAGNESIUM SULFATE-D5W PMX 1 GM in DEXTROSE/WATER 1 100ML.BAG IVPB SCH ×2 (08:31→09:39)
[2018-02-07] MEDS: CLOPIDOGREL 75 MG TAB PO SCH (08:31)
[2018-02-07] MEDS: ATORVASTATIN 40 MG TAB PO SCH (08:31)
[2018-02-07] MEDS ORDERED: PANTOPRAZOLE 40 MG/10 ML VIAL IVP SCH (09:00)
--- NOTE | 2018-02-07 09:01 | XR ---
EXAMINATION TYPE: XR chest 1V portable DATE OF EXAM: 02/07/2018 COMPARISON: 02/06/2018 HISTORY: Post cardiac surgery. TECHNIQUE: Single frontal view of the chest is obtained. FINDINGS: Enteric and endotracheal tubes have been removed in the interim. Right thoracostomy tube h as been slightly retracted with its fenestrated portion remaining intrathoracic. Left thoracostomy tu be is similar. [place] catheter is unchanged as well as mediastinal drain and post CABG changes the chest. Retrocardiac opacity has worsened in the interim with mild pulmonary vascular congestion and scattered foci of atelectasis that are linear and platelike remaining. No residual pneumothorax is se en. IMPRESSION: Increasing left basilar opacity and obscuration of the left hemidiaphragm that may relat e to atelectasis or small pleural effusion. Similar pulmonary vascular congestion. Interval removal o f the enteric and endotracheal tubes.
[2018-02-07] MEDS: ceFAZolin IN SWFI 2 GM/20 ML SYRINGE IVP SCH (09:53)
--- NOTE | 2018-02-07 09:58 | P.CRDCN ---
History of Present Illness Consult date: 02/07/18 History of present illness: This is a 82-year-old gentleman with history of previous bypass surgery who was been experiencing increasing chest pain and anginal episodes with activity. Patient was evaluated by cardiac catheterization which showed total occlusion of the left anterior descending coronary artery, total occlusion of the large intermediate branch and 90% stenosis of the proximal circumflex leading to good- sized posterolateral branch. The [place] right coronary artery is completely occluded. There is a patent vein graft to the posterior descending coronary artery which has about 85% stenosis proximally. There was a patent RIDLEY which is attached to the total occluded LAD. Patient underwent redo bypass surgery with the radial graft to the LAD and diagonal branch and a bypass graft to the right coronary artery. Patient is extubated and sitting in the chair. Complaints of surgical chest pain but doesn't appear to be in acute distress. Vital signs are stable. His mediastinal chest tube was removed. Chest x-ray shows postsurgical findings. Patient is maintaining sinus rhythm. Overall patient seemed to be clinically progressing well at this time. Review of Systems As per the chart Past Medical History Past Medical History: Atrial Fibrillation, Coronary Artery Disease (CAD), Chest Pain / Angina, Hyperlipidemia, Hypertension History of Any Multi-Drug Resistant Organisms: None Reported Past Surgical History: Cholecystectomy, Coronary Bypass/CABG, Heart Catheterization, Prostate Surgery Additional Past Surgical History / Comment(s): TURP,CABG 4 vessel 1996 Past Anesthesia/Blood Transfusion Reactions: No Reported Reaction Additional Past Anesthesia/Blood Transfusion Reaction / Comment(s): "not sure if had prior blood transfusion with previos open heart surgery",no problems if any was given. Smoking Status: Former smoker - Past Family History Father Family Medical History: Cancer Medications and Allergies Home Medications Medication Instructions Recorded Confirmed Type Apixaban [Eliquis] 2.5 mg PO DAILY 01/11/18 02/06/18 History Aspirin [Adult Low Dose Aspirin EC] 81 mg PO DAILY 01/11/18 01/29/18 History Isosorbide Mononitrate [Isosorbide 30 mg PO DAILY 01/11/18 01/29/18 History Mononitrate ER] Omeprazole 20 mg PO DAILY 01/11/18 01/29/18 History Simvastatin [Zocor] 20 mg PO HS 01/11/18 01/29/18 History Vit C/E/Zn/Coppr/Lutein/Zeaxan 1 each PO DAILY 01/11/18 01/29/18 History [Preservision Areds 2 Softgel] amLODIPine BESYLATE 5 mg PO HS 01/11/18 01/29/18 History Metoprolol Tartrate [Lopressor] 12.5 mg PO DAILY #60 dose 01/15/18 01/29/18 Rx Allergies Allergy/AdvReac Type Severity Reaction Status Date / Time No Known Allergies Allergy Verified 02/06/18 05:56 Physical Exam Vitals: Vital Signs Temp Pulse Resp BP Pulse Ox 02/07/18 08:30 63 16 133/62 93 L 02/07/18 08:05 57 L 02/07/18 08:00 60 17 94 L 02/07/18 07:30 58 L 30 H 96 02/07/18 07:00 57 L 39 H 95 02/07/18 06:30 65 17 94 L 02/07/18 06:00 63 13 94 L 02/07/18 05:30 61 22 95 02/07/18 05:00 64 29 H 96 02/07/18 04:30 57 L 22 97 02/07/18 04:00 57 L 16 96 02/07/18 03:30 60 27 H 95 02/07/18 03:00 58 L 17 95 02/07/18 02:30 59 L 20 95 02/07/18 02:00 57 L 23 95 02/07/18 01:30 58 L 21 95 02/07/18 01:00 56 L 22 93 L 02/07/18 00:30 63 38 H 94 L 02/07/18 00:00 99.5 F 62 18 93 L 02/06/18 23:30 73 39 H 93 L 02/06/18 23:00 67 17 95 02/06/18 22:31 61 23 92 L 02/06/18 22:30 64 20 93 L 02/06/18 22:00 60 23 92 L 02/06/18 21:30 63 27 H 91 L 02/06/18 21:00 71 29 H 95 02/06/18 20:30 66 27 H 96 02/06/18 20:22 60 02/06/18 20:13 63 18 02/06/18 20:00 99.7 F H 62 26 H 97 02/06/18 19:30 60 24 95 02/06/18 19:00 60 22 95 02/06/18 18:30 57 L 24 95 02/06/18 18:00 59 L 23 97 02/06/18 17:30 58 L 21 99 02/06/18 17:00 57 L 16 98 02/06/18 16:45 57 L 16 99 02/06/18 16:30 57 L 16 98 02/06/18 16:25 55 L 16 02/06/18 16:15 65 12 99 02/06/18 16:14 65 18 02/06/18 16:00 55 L 12 99 02/06/18 15:45 56 L 12 100 02/06/18 15:30 62 16 98 02/06/18 15:15 61 12 98 02/06/18 15:00 58 L 12 100 02/06/18 14:45 57 L 12 100 02/06/18 14:30 63 12 100 02/06/18 14:15 59 L 12 100 02/06/18 14:13 100 Intake and Output 02/06/18 02/07/18 02/07/18 22:59 06:59 14:59 Intake Total 6939.868 2958.502 506.825 Output Total 677 546 121 Balance 769.709 588.502 385.825 Intake: IV 252 312 58 cardiac output 180 240 40 pressure bags 72 72 18 Intake, IV Titration 1194.709 572.502 448.825 Amount ACETAMINOPHEN IV (For NPO 200 100 ) 1,000 mg In Empty Bag 1 bag @ 400 mls/hr IVPB Q6H [facility] Rx#:[id number] Albumin Human 5% 250 ml 250 In Empty Bag 1 bag @ 250 mls/hr IVPB Q1HR PRN Rx#: [id number] Clevidipine Butyrate 25 27.200 22.800 mg In Empty Bag 1 bag @ 1 MG/HR 2 mls/hr IV .Q24H [facility] Rx#:[id number] Diltiazem 50 mg In Sodium 23.583 47.750 Chloride 0.9% 40 ml @ 5 MG/HR 5 mls/hr IV .Q10H [facility] Rx#:[id number] Insulin Regular 100 unit 7.573 1.952 In Sodium Chloride 0.9% 100 ml @ Per Protocol IV .Q0M [facility] Rx#:[id number] Lactated Ringers 1,000 ml 280 400 80 @ 20 mls/hr IV .Q24H REPLACED BY [facility] Rx#:[id number] Magnesium Sulfate-D5w Pmx 300 1 gm In Dextrose/Water 1 100ml.bag @ 100 mls/hr IVPB Q1H REPLACED BY [facility] Rx#: [id number] Magnesium Sulfate-D5w Pmx 100 1 gm In Dextrose/Water 1 100ml.bag @ 100 mls/hr IVPB Q1H [facility] Rx#: [id number] Nitroglycerin-D5w Pmx 50 7.025 18.825 mg In Dextrose/Water 1 250ml.bag @ 5 MCG/MIN 1.5 mls/hr IV .Q24H REPLACED BY [facility] Rx#: [id number] Potassium Chloride 10 meq 300 In Water For Injection 1 100ml.bag @ 100 mls/hr IVPB Q1H REPLACED BY [facility] Rx#: [id number] Propofol 1,000 mg In 49.328 Empty Bag 1 bag @ Titrate IV .Q0M REPLACED BY [facility] Rx#: [id number] TPN/PPN 250 pressure bags 250 Output: Chest Tube Drainage 205 246 80 left and right 130 155 60 mediastinal left and right pleural 75 91 20 Drainage 40 10 left forarm 20 5 right lower leg 20 5 Urine 432 290 41 Other: Voiding Method Indwelling Catheter Indwelling Catheter Indwelling Catheter Weight 88 kg ABP, PAP, CO, CI - Last 8 Hours Arterial Blood Pressure 125/56 Arterial Blood Pressure 156/44 Arterial Blood Pressure 129/64 Arterial Blood Pressure 143/57 Arterial Blood Pressure 157/49 Arterial Blood Pressure 114/53 Arterial Blood Pressure 163/46 Arterial Blood Pressure 157/85 Arterial Blood Pressure 136/48 Arterial Blood Pressure 128/48 Arterial Blood Pressure 129/48 Arterial Blood Pressure 122/45 Arterial Blood Pressure 137/46 Arterial Blood Pressure 109/109 Pulmonary Artery Pressure 20/13 Pulmonary Artery Pressure 24/3 Pulmonary Artery Pressure 18/12 Pulmonary Artery Pressure 19/13 Pulmonary Artery Pressure 18/13 Pulmonary Artery Pressure 23/17 Pulmonary Artery Pressure 25/20 Pulmonary Artery Pressure 32/24 Pulmonary Artery Pressure 22/16 Pulmonary Artery Pressure 27/19 Pulmonary Artery Pressure 24/18 Pulmonary Artery Pressure 27/20 Pulmonary Artery Pressure 25/14 Cardiac Output 6.8 Cardiac Output 6.6 Cardiac Output 6.6 Cardiac Output 6.6 Cardiac Output 6.6 Cardiac Output 6.6 Cardiac Index 3.3 Cardiac Index 3.2 GENERAL EXAM: Patient is alert and oriented and doesn't appear to be in any acute distress HEENT: Normocephalic. Normal reaction of pupils, equal size, normal range of extraocular motion. No erythema or exudates in the throat. NECK: No masses, no nuchal rigidity. CHEST: Postsurgical LUNGS: Diminished breath sounds at bases HEART: S1 and S2 normal with no audible mumurs or gallops. Regular rhythm, femorals equal on both sides.. ABDOMEN: No hepatosplenomegaly, normal bowel sounds, no guarding or rigidity. SKIN: No rashes CENTRAL NERVOUS SYSTEM: No focal deficits. EXTREMITIES: No cyanosis, clubbing or edema. Results 02/07/18 05:20 02/07/18 05:20 Cardiac Enzymes 02/06/18 02/07/18 Range/Units 14:20 05:20 AST 23 43 (17-59) U/L Coagulation 02/06/18 02/07/18 Range/Units 14:20 05:20 PT 12.6 H 12.1 H (9.0-12.0) sec APTT 30.8 H 28.7 (22.0-30.0) sec CBC 02/06/18 02/06/18 02/07/18 Range/Units 14:20 18:12 05:20 WBC 9.8 11.7 H 9.6 (3.8-10.6) k/uL RBC 3.52 L 3.65 L 3.73 L (4.30-5.90) m/uL Hgb 10.5 L D 10.8 L 11.0 L (13.0-17.5) gm/dL Hct 31.6 L 32.7 L 33.4 L (39.0-53.0) % Plt Count 109 L 129 L 112 L (150-450) k/uL Comprehensive Metabolic Panel 02/06/18 02/07/18 Range/Units 14:20 05:20 Sodium 143 141 (137-145) mmol/L Potassium 3.7 4.5 (3.5-5.1) mmol/L Chloride 113 H 111 H (98-107) mmol/L Carbon Dioxide 24 22 (22-30) mmol/L BUN 18 20 (9-20) mg/dL Creatinine 0.65 L 0.79 (0.66-1.25) mg/dL Glucose 119 H 109 H (74-99) mg/dL Calcium 8.3 L 8.6 (8.4-10.2) mg/dL AST 23 43 (17-59) U/L ALT 27 20 L (21-72) U/L Alkaline Phosphatase 32 L 33 L (38-126) U/L Total Protein 5.2 L 5.5 L (6.3-8.2) g/dL Albumin 3.2 L 3.4 L (3.5-5.0) g/dL Current Medications Generic Name Dose Route Start Last Admin Trade Name Freq PRN Reason Stop Dose Admin Hydrocodone Bitart/Acetaminophen 2 each 02/07/18 21:00 Gallagher 5-325 PO Q4HR PRN Severe Pain Hydrocodone Bitart/Acetaminophen 1 each 02/07/18 21:00 Gallagher 5-325 PO Q4HR PRN Moderate Pain Albuterol/Ipratropium 3 ml 02/06/18 14:16 Duoneb 0.5 Mg-3 Mg/3 Ml Soln INHALATION RT-Q2H PRN Shortness Of Breath Or Wheezing Albuterol/Ipratropium 3 ml 02/06/18 17:52 02/07/18 08:03 Duoneb 0.5 Mg-3 Mg/3 Ml Soln INHALATION 3 ml RT-QID [facility] Administration Amlodipine Besylate 5 mg 02/07/18 09:00 Norvasc PO DAILY [facility] Aspirin 325 mg 02/07/18 09:00 02/07/18 08:31 Aspirin PO 325 mg DAILY [facility] Administration Atorvastatin Calcium 40 mg 02/07/18 09:00 02/07/18 08:31 Lipitor PO 40 mg DAILY [facility] Administration Benzocaine/Menthol 1 each 02/06/18 14:16 Cepacol Lozenge MUCOUS MEM Q2H PRN Sore Throat Bisacodyl 10 mg 02/07/18 11:51 Dulcolax RECTAL DAILY PRN Constipation Clopidogrel Bisulfate 75 mg 02/07/18 09:00 02/07/18 08:31 Plavix PO 75 mg DAILY [facility] Administration Heparin Sodium (Porcine) 5,000 unit 02/06/18 20:00 02/07/18 04:10 Heparin SQ 5,000 unit Q8H [facility] Administration Albumin Human 250 ml/ IV 250 mls @ 250 mls/hr 02/06/18 14:16 02/06/18 22:09 Solution IVPB 02/08/18 14:17 250 mls/hr Q1HR PRN Administration For Volume Acetaminophen 1,000 mg/ IV 100 mls @ 400 mls/hr 02/06/18 15:00 02/07/18 09:53 Solution IVPB 02/07/18 15:01 400 mls/hr Q6H [facility] Administration Amiodarone HCl 150 mg/ 103 mls @ 618 mls/hr 02/06/18 14:16 Dextrose/Water IV .Q10M PRN Per protocol Protocol Amiodarone HCl 450 mg/ 259 mls @ 34.53 mls/hr 02/06/18 14:16 Dextrose/Water IV .Q7H31M PRN Per Protocol Protocol 1 MG/MIN Insulin Human Regular 100 unit 101 mls @ 0 mls/hr 02/06/18 14:16 02/07/18 04: 05 / Sodium Chloride IV 0.05 unit/hr .Q0M [facility] 0.05 mls/hr Titration Protocol Per Protocol Clevidipine 25 mg/ IV Solution 50 mls @ 2 mls/hr 02/06/18 14:16 02/07/18 06: 15 IV Infused .Q24H [facility] Titration Protocol 1 MG/HR Magnesium Sulfate/Dextrose 1 100 mls @ 100 mls/hr 02/07/18 08:00 02/07/18 09: 39 gm/ IV Solution IVPB 02/07/18 09:59 100 mls/hr Q1H [facility] Administration Ketorolac Tromethamine 15 mg 02/07/18 07:25 02/07/18 08:31 Toradol IVP 02/11/18 07:26 15 mg Q6HR PRN Administration Pain Magnesium Hydroxide 2,400 mg 02/07/18 11:51 Milk Of Magnesia PO BID PRN Constipation Metoprolol Tartrate 12.5 mg 02/07/18 21:00 Lopressor PO BID [facility] Miscellaneous Information 1 each 02/06/18 14:16 Magnesium Per Protocol MISCELLANE DAILY PRN Per Protocol Protocol Miscellaneous Information 1 each 02/06/18 14:16 Phosphorus Per Protocol MISCELLANE DAILY PRN Per Protocol Protocol Miscellaneous Information 1 each 02/06/18 14:16 Potassium Per Protocol MISCELLANE DAILY PRN Per Protocol Protocol Miscellaneous Information 1 each 02/07/18 07:12 Magnesium Per Protocol MISCELLANE DAILY PRN Per Protocol Protocol Ondansetron HCl 4 mg 02/06/18 14:16 Zofran IVP Q6HR PRN Nausea And Vomiting Oxycodone HCl 10 mg 02/06/18 14:16 Oxyir PO 02/07/18 20:59 Q4H PRN Severe Pain Oxycodone HCl 5 mg 02/06/18 14:16 02/07/18 06:58 Oxyir PO 02/07/18 20:59 5 mg Q4H PRN Administration Moderate Pain Pantoprazole Sodium 40 mg 02/07/18 07:30 02/07/18 08:31 Protonix PO 40 mg [id number] [facility] Administration Senna/Docusate Sodium 2 each 02/07/18 21:00 Senokot-S PO HS [facility] Sodium Chloride 10 ml 02/06/18 21:00 02/07/18 08:34 Saline Flush IV Not Given BID [facility] Intake and Output 02/06/18 02/07/18 02/07/18 22:59 06:59 14:59 Intake Total 8790.011 1730.502 506.825 Output Total 677 546 121 Balance 769.709 588.502 385.825 Intake: IV 252 312 58 cardiac output 180 240 40 pressure bags 72 72 18 Intake, IV Titration 1194.709 572.502 448.825 Amount ACETAMINOPHEN IV (For NPO 200 100 ) 1,000 mg In Empty Bag 1 bag @ 400 mls/hr IVPB Q6H [facility] Rx#:[id number] Albumin Human 5% 250 ml 250 In Empty Bag 1 bag @ 250 mls/hr IVPB Q1HR PRN Rx#: [id number] Clevidipine Butyrate 25 27.200 22.800 mg In Empty Bag 1 bag @ 1 MG/HR 2 mls/hr IV .Q24H [facility] Rx#:[id number] Diltiazem 50 mg In Sodium 23.583 47.750 Chloride 0.9% 40 ml @ 5 MG/HR 5 mls/hr IV .Q10H [facility] Rx#:[id number] Insulin Regular 100 unit 7.573 1.952 In Sodium Chloride 0.9% 100 ml @ Per Protocol IV .Q0M [facility] Rx#:[id number] Lactated Ringers 1,000 ml 280 400 80 @ 20 mls/hr IV .Q24H [facility] Rx#:[id number] Magnesium Sulfate-D5w Pmx 300 1 gm In Dextrose/Water 1 100ml.bag @ 100 mls/hr IVPB Q1H [facility] Rx#: [id number] Magnesium Sulfate-D5w Pmx 100 1 gm In Dextrose/Water 1 100ml.bag @ 100 mls/hr IVPB Q1H [facility] Rx#: [id number] Nitroglycerin-D5w Pmx 50 7.025 18.825 mg In Dextrose/Water 1 250ml.bag @ 5 MCG/MIN 1.5 mls/hr IV .Q24H [facility] Rx#: [id number] Potassium Chloride 10 meq 300 In Water For Injection 1 100ml.bag @ 100 mls/hr IVPB Q1H [facility] Rx#: [id number] Propofol 1,000 mg In 49.328 Empty Bag 1 bag @ Titrate IV .Q0M [facility] Rx#: [id number] TPN/PPN 250 pressure bags 250 Output: Chest Tube Drainage 205 246 80 left and right 130 155 60 mediastinal left and right pleural 75 91 20 Drainage 40 10 left forarm 20 5 right lower leg 20 5 Urine 432 290 41 Other: Voiding Method Indwelling Catheter Indwelling Catheter Indwelling Catheter Weight 88 kg 02/07/18 05:20 02/07/18 05:20 EKG Interpretations (text) Sinus rhythm Assessment and Plan Assessment: Patient is status post bypass surgery, which is redo surgery. Patient is clinically stable. No arrhythmias. Chest x-ray looks fine. Lab work is reviewed. Patient is doing very well at this time. We'll continue current medical therapy. Patient is being initiated on Norvasc. Further recommendation to follow
--- NOTE | 2018-02-07 10:03 | P.PN ---
Subjective Progress Note Date: 02/07/18 Principal diagnosis: Coronary artery arterial sclerosis, history of coronary artery bypass grafting surgery in 1996, atherosclerosis of bypass grafts, hypertension, hyperlipidemia , osteoarthritis, history of benign prostatic hypertrophy and preoperative paroxysmal atrial fibrillation. POD #1 redo sternotomy, off-pump CABG 3 with a reverse saphenous vein graft to the posterior descending coronary artery, left radial artery to the left anterior descending coronary artery with a T graft left radial artery to the diagonal coronary artery. Endovascular vein harvest of the right greater saphenous vein. Endovascular left radial artery harvest. Intraoperative transesophageal echocardiogram. Patient is sitting up to the bedside chair, he is in no acute distress. He is complaining of pain 6 out of 10 on the pain scale to his chest tube insertion sites. He remains afebrile. WBC count this morning is 9.6. He is achieving 750 mL on his incentive spirometry. Oxygen saturation are 95% on 2 L nasal cannula. Objective - Vital Signs Vital signs: Vital Signs Temp 99.5 F 02/07/18 00:00 Pulse 63 02/07/18 08:30 Resp 16 02/07/18 08:30 BP 133/62 02/07/18 08:30 Pulse Ox 93 L 02/07/18 08:30 Intake & Output 02/06/18 02/07/18 02/07/18 18:59 06:59 18:59 Intake Total 955.243 0051.563 506.825 Output Total 2635 833 121 Balance -1673.352 819.563 385.825 Weight 88 kg Intake: IV 129 468 58 cardiac output 60 360 40 pressure bags 36 108 18 Intake, IV Titration 832.648 934.563 448.825 Amount ACETAMINOPHEN IV (For NPO 100 200 ) 1,000 mg In Empty Bag 1 bag @ 400 mls/hr IVPB Q6H [facility] Rx#:[id number] Albumin Human 5% 250 ml 250 In Empty Bag 1 bag @ 250 mls/hr IVPB Q1HR PRN Rx#: [id number] Clevidipine Butyrate 25 50.000 mg In Empty Bag 1 bag @ 1 MG/HR 2 mls/hr IV .Q24H [facility] Rx#:[id number] Diltiazem 50 mg In Sodium 71.333 Chloride 0.9% 40 ml @ 5 MG/HR 5 mls/hr IV .Q10H [facility] Rx#:[id number] Insulin Regular 100 unit 3.320 6.205 In Sodium Chloride 0.9% 100 ml @ Per Protocol IV .Q0M [facility] Rx#:[id number] Lactated Ringers 1,000 ml 80 600 80 @ 20 mls/hr IV .Q24H [facility] Rx#:[id number] Magnesium Sulfate-D5w Pmx 300 1 gm In Dextrose/Water 1 100ml.bag @ 100 mls/hr IVPB Q1H [facility] Rx#: [id number] Magnesium Sulfate-D5w Pmx 100 1 gm In Dextrose/Water 1 100ml.bag @ 100 mls/hr IVPB Q1H [facility] Rx#: [id number] Nitroglycerin-D5w Pmx 50 7.025 18.825 mg In Dextrose/Water 1 250ml.bag @ 5 MCG/MIN 1.5 mls/hr IV .Q24H [facility] Rx#: [id number] Potassium Chloride 10 meq 300 In Water For Injection 1 100ml.bag @ 100 mls/hr IVPB Q1H [facility] Rx#: [id number] Propofol 1,000 mg In 49.328 Empty Bag 1 bag @ Titrate IV .Q0M [facility] Rx#: [id number] TPN/PPN 250 pressure bags 250 Output: Chest Tube Drainage 210 336 80 left and right 145 205 60 mediastinal left and right pleural 65 131 20 Drainage 50 left forarm 25 right lower leg 25 Urine 625 447 41 Estimated Blood Loss 1800 Other: Voiding Method Indwelling Catheter Indwelling Catheter Indwelling Catheter ABP, PAP, CO, CI - Last Documented Arterial Blood Pressure 125/56 Pulmonary Artery Pressure 20/13 Cardiac Output 6.8 Cardiac Index 3.3 - Constitutional General appearance: Present: cooperative, no acute distress - Respiratory Details: Lungs sounds are essentially clear throughout, diminished to his bilateral bases. Respirations are symmetrical and nonlabored. Oxygen saturation are 95% on 2 L nasal cannula. He is achieving 750 mL on his incentive spirometry. Mediastinal, left and right pleural chest tubes in place to low continuous wall suction -20 cm H2O. No air leak is present. Draining thin serosanguineous drainage. Mediastinal chest tubes drained 155 mL output in the last 8 hours, 450 mL output in the last 24 hours. Pleural chest tubes drained 90 mL output in the last 8 hours, 210 mL output in the last 24 hours. - Cardiovascular Details: Regular rhythm and rate. S1 and S2 present, negative for S3, gallop or murmur. Bedside telemetry showing sinus bradycardia heart rate 60. Sternum is stable. Heart hugger is in place and he is demonstrating appropriate use. Knee -high SAMIA hose and sequential compression devices in place to his bilateral lower extremities. Atrial and ventricular epicardial pacemaker wires in place and connected to bedside backup pacemaker generator with a VVI mode of 50. Right IJ Cordis in place and functioning. Cardiac output 6.8, cardiac index 3.3 , PA pressures 20/13, CVP 4 mmHg. Right brachial arterial line in place and functioning. - Gastrointestinal Gastrointestinal Comment(s): Abdomens is soft, nontender and nondistended. Hypoactive bowel sounds all 4 abdominal quadrants. Tolerating oral intake. No guarding or rigidity. No organomegaly. - Genitourinary Genitourinary Comment(s): Reid catheter for accurate I&O. Draining clear derik urine. 270 mL output the last 8 hours. - Integumentary Integumentary Comment(s): Skin is warm and dry. No clubbing or cyanosis present. Midline sternal incision clean, dry and approximated. No redness or drainage present. Gauze dressing clean, dry and intact. Left radial harvest sites clean, dry and approximated. No drainage or redness present. Left arm KATELIN drain in place draining thin serosanguineous drainage 5 mL output in the last 8 hours. Right lower extremity EVH site clean, dry and approximated. No drainage or redness present. KATELIN drain in place draining thin serosanguineous drainage 5 mL output in the last 8 hours. - Neurologic Neurologic: Present: CNII-XII intact - Musculoskeletal Musculoskeletal: Present: gait normal, generalized weakness, strength equal bilaterally - Psychiatric Psychiatric: Present: A&O x's 3, appropriate affect, intact judgment & insight - Allied health notes Allied health notes reviewed: nursing - Labs CBC & Chem 7: 02/07/18 05:20 02/07/18 05:20 Labs: Abnormal Lab Results - Last 24 Hours (Table) 01/29/18 02/06/18 02/06/18 Range/Units 09:00 08:31 09:04 WBC (3.8-10.6) k/uL RBC (4.30-5.90) m/uL Hgb (13.0-17.5) gm/dL Hct (39.0-53.0) % Plt Count (150-450) k/uL Neutrophils # (1.3-7.7) k/uL Lymphocytes # (1.0-4.8) k/uL PT (9.0-12.0) sec INR (<1.2) APTT (22.0-30.0) sec ABG pH 7.29 L (7.35-7.45) ABG pCO2 57 H (35-45) mmHg ABG pO2 293 H 256 H (83-108) mmHg ABG HCO3 26 H 27 H (21-25) mmol/L ABG Total CO2 28 H 29 H (19-24) mmol/L ABG O2 Saturation 99.9 H 99.7 H (94-97) % ABG Hematocrit (34.0-46.0) % ABG Potassium (3.4-4.5) mmol/L ABG Ionized Calcium (4.5-5.3) mg/dL ABG Glucose (75-99) mg/dL Hemoglobin 12.9 L (13.0-17.5) gm/dL Chloride (98-107) mmol/L Creatinine (0.66-1.25) mg/dL Glucose (74-99) mg/dL POC Glucose (mg/dL) (75-99) mg/dL Calcium (8.4-10.2) mg/dL Magnesium (1.6-2.3) mg/dL Total Bilirubin (0.2-1.3) mg/dL ALT (21-72) U/L Alkaline Phosphatase (38-126) U/L Total Protein (6.3-8.2) g/dL Albumin (3.5-5.0) g/dL Arterial Blood Potassium (3.4-4.5) mmol/L Arterial Blood Glucose (75-99) mg/dL Crossmatch See Detail 02/06/18 02/06/18 02/06/18 Range/Units 09:34 10:33 11:14 WBC (3.8-10.6) k/uL RBC (4.30-5.90) m/uL Hgb (13.0-17.5) gm/dL Hct (39.0-53.0) % Plt Count (150-450) k/uL Neutrophils # (1.3-7.7) k/uL Lymphocytes # (1.0-4.8) k/uL PT (9.0-12.0) sec INR (<1.2) APTT (22.0-30.0) sec ABG pH 7.32 L (7.35-7.45) ABG pCO2 47 H (35-45) mmHg ABG pO2 277 H 298 H 291 H (83-108) mmHg ABG HCO3 (21-25) mmol/L ABG Total CO2 25 H 25 H (19-24) mmol/L ABG O2 Saturation 99.8 H 99.9 H 100.0 H (94-97) % ABG Hematocrit 32 L 30 L (34.0-46.0) % ABG Potassium (3.4-4.5) mmol/L ABG Ionized Calcium 4.3 L 4.2 L 4.1 L (4.5-5.3) mg/dL ABG Glucose 101 H 103 H 105 H (75-99) mg/dL Hemoglobin 11.4 L 10.5 L 9.9 L (13.0-17.5) gm/dL Chloride (98-107) mmol/L Creatinine (0.66-1.25) mg/dL Glucose (74-99) mg/dL POC Glucose (mg/dL) (75-99) mg/dL Calcium (8.4-10.2) mg/dL Magnesium (1.6-2.3) mg/dL Total Bilirubin (0.2-1.3) mg/dL ALT (21-72) U/L Alkaline Phosphatase (38-126) U/L Total Protein (6.3-8.2) g/dL Albumin (3.5-5.0) g/dL Arterial Blood Potassium (3.4-4.5) mmol/L Arterial Blood Glucose 101 H 103 H 105 H (75-99) mg/dL Crossmatch 02/06/18 02/06/18 02/06/18 Range/Units 11:45 12:33 13:37 WBC (3.8-10.6) k/uL RBC (4.30-5.90) m/uL Hgb (13.0-17.5) gm/dL Hct (39.0-53.0) % Plt Count (150-450) k/uL Neutrophils # (1.3-7.7) k/uL Lymphocytes # (1.0-4.8) k/uL PT (9.0-12.0) sec INR (<1.2) APTT (22.0-30.0) sec ABG pH 7.29 L 7.33 L (7.35-7.45) ABG pCO2 46 H (35-45) mmHg ABG pO2 206 H 155 H 119 H (83-108) mmHg ABG HCO3 (21-25) mmol/L ABG Total CO2 (19-24) mmol/L ABG O2 Saturation 99.5 H 99.4 H 98.6 H (94-97) % ABG Hematocrit 32 L 31 L 31 L (34.0-46.0) % ABG Potassium 3.3 L (3.4-4.5) mmol/L ABG Ionized Calcium 4.1 L (4.5-5.3) mg/dL ABG Glucose 117 H 111 H 121 H (75-99) mg/dL Hemoglobin 10.3 L 10.0 L 10.0 L (13.0-17.5) gm/dL Chloride (98-107) mmol/L Creatinine (0.66-1.25) mg/dL Glucose (74-99) mg/dL POC Glucose (mg/dL) (75-99) mg/dL Calcium (8.4-10.2) mg/dL Magnesium (1.6-2.3) mg/dL Total Bilirubin (0.2-1.3) mg/dL ALT (21-72) U/L Alkaline Phosphatase (38-126) U/L Total Protein (6.3-8.2) g/dL Albumin (3.5-5.0) g/dL Arterial Blood Potassium 3.3 L (3.4-4.5) mmol/L Arterial Blood Glucose 117 H 111 H 121 H (75-99) mg/dL Crossmatch 02/06/18 02/06/18 02/06/18 Range/Units 14:18 14:20 14:20 WBC (3.8-10.6) k/uL RBC 3.52 L (4.30-5.90) m/uL Hgb 10.5 L D (13.0-17.5) gm/dL Hct 31.6 L (39.0-53.0) % Plt Count 109 L (150-450) k/uL Neutrophils # 8.6 H (1.3-7.7) k/uL Lymphocytes # 0.9 L (1.0-4.8) k/uL PT (9.0-12.0) sec INR (<1.2) APTT (22.0-30.0) sec ABG pH (7.35-7.45) ABG pCO2 (35-45) mmHg ABG pO2 (83-108) mmHg ABG HCO3 (21-25) mmol/L ABG Total CO2 (19-24) mmol/L ABG O2 Saturation (94-97) % ABG Hematocrit (34.0-46.0) % ABG Potassium (3.4-4.5) mmol/L ABG Ionized Calcium (4.5-5.3) mg/dL ABG Glucose (75-99) mg/dL Hemoglobin (13.0-17.5) gm/dL Chloride 113 H (98-107) mmol/L Creatinine 0.65 L (0.66-1.25) mg/dL Glucose 119 H (74-99) mg/dL POC Glucose (mg/dL) 121 H (75-99) mg/dL Calcium 8.3 L (8.4-10.2) mg/dL Magnesium 1.5 L (1.6-2.3) mg/dL Total Bilirubin 1.4 H (0.2-1.3) mg/dL ALT (21-72) U/L Alkaline Phosphatase 32 L (38-126) U/L Total Protein 5.2 L (6.3-8.2) g/dL Albumin 3.2 L (3.5-5.0) g/dL Arterial Blood Potassium (3.4-4.5) mmol/L Arterial Blood Glucose (75-99) mg/dL Crossmatch 02/06/18 02/06/18 02/06/18 Range/Units 14:20 14:54 14:57 WBC (3.8-10.6) k/uL RBC (4.30-5.90) m/uL Hgb (13.0-17.5) gm/dL Hct (39.0-53.0) % Plt Count (150-450) k/uL Neutrophils # (1.3-7.7) k/uL Lymphocytes # (1.0-4.8) k/uL PT 12.6 H (9.0-12.0) sec INR 1.3 H (<1.2) APTT 30.8 H (22.0-30.0) sec ABG pH 7.33 L (7.35-7.45) ABG pCO2 (35-45) mmHg ABG pO2 395 H (83-108) mmHg ABG HCO3 (21-25) mmol/L ABG Total CO2 25 H (19-24) mmol/L ABG O2 Saturation 100.0 H (94-97) % ABG Hematocrit (34.0-46.0) % ABG Potassium (3.4-4.5) mmol/L ABG Ionized Calcium (4.5-5.3) mg/dL ABG Glucose (75-99) mg/dL Hemoglobin (13.0-17.5) gm/dL Chloride (98-107) mmol/L Creatinine (0.66-1.25) mg/dL Glucose (74-99) mg/dL POC Glucose (mg/dL) 125 H (75-99) mg/dL Calcium (8.4-10.2) mg/dL Magnesium (1.6-2.3) mg/dL Total Bilirubin (0.2-1.3) mg/dL ALT (21-72) U/L Alkaline Phosphatase (38-126) U/L Total Protein (6.3-8.2) g/dL Albumin (3.5-5.0) g/dL Arterial Blood Potassium (3.4-4.5) mmol/L Arterial Blood Glucose (75-99) mg/dL Crossmatch 02/06/18 02/06/18 02/06/18 Range/Units 16:03 17:01 18:08 WBC (3.8-10.6) k/uL RBC (4.30-5.90) m/uL Hgb (13.0-17.5) gm/dL Hct (39.0-53.0) % Plt Count (150-450) k/uL Neutrophils # (1.3-7.7) k/uL Lymphocytes # (1.0-4.8) k/uL PT (9.0-12.0) sec INR (<1.2) APTT (22.0-30.0) sec ABG pH (7.35-7.45) ABG pCO2 (35-45) mmHg ABG pO2 118 H (83-108) mmHg ABG HCO3 (21-25) mmol/L ABG Total CO2 (19-24) mmol/L ABG O2 Saturation 99.2 H (94-97) % ABG Hematocrit (34.0-46.0) % ABG Potassium (3.4-4.5) mmol/L ABG Ionized Calcium (4.5-5.3) mg/dL ABG Glucose (75-99) mg/dL Hemoglobin (13.0-17.5) gm/dL Chloride (98-107) mmol/L Creatinine (0.66-1.25) mg/dL Glucose (74-99) mg/dL POC Glucose (mg/dL) 127 H 146 H (75-99) mg/dL Calcium (8.4-10.2) mg/dL Magnesium (1.6-2.3) mg/dL Total Bilirubin (0.2-1.3) mg/dL ALT (21-72) U/L Alkaline Phosphatase (38-126) U/L Total Protein (6.3-8.2) g/dL Albumin (3.5-5.0) g/dL Arterial Blood Potassium (3.4-4.5) mmol/L Arterial Blood Glucose (75-99) mg/dL Crossmatch 02/06/18 02/06/18 02/06/18 Range/Units 18:10 18:12 19:04 WBC 11.7 H (3.8-10.6) k/uL RBC 3.65 L (4.30-5.90) m/uL Hgb 10.8 L (13.0-17.5) gm/dL Hct 32.7 L (39.0-53.0) % Plt Count 129 L (150-450) k/uL Neutrophils # 10.2 H (1.3-7.7) k/uL Lymphocytes # 0.7 L (1.0-4.8) k/uL PT (9.0-12.0) sec INR (<1.2) APTT (22.0-30.0) sec ABG pH (7.35-7.45) ABG pCO2 (35-45) mmHg ABG pO2 (83-108) mmHg ABG HCO3 (21-25) mmol/L ABG Total CO2 (19-24) mmol/L ABG O2 Saturation (94-97) % ABG Hematocrit (34.0-46.0) % ABG Potassium (3.4-4.5) mmol/L ABG Ionized Calcium (4.5-5.3) mg/dL ABG Glucose (75-99) mg/dL Hemoglobin (13.0-17.5) gm/dL Chloride (98-107) mmol/L Creatinine (0.66-1.25) mg/dL Glucose (74-99) mg/dL POC Glucose (mg/dL) 142 H 145 H (75-99) mg/dL Calcium (8.4-10.2) mg/dL Magnesium (1.6-2.3) mg/dL Total Bilirubin (0.2-1.3) mg/dL ALT (21-72) U/L Alkaline Phosphatase (38-126) U/L Total Protein (6.3-8.2) g/dL Albumin (3.5-5.0) g/dL Arterial Blood Potassium (3.4-4.5) mmol/L Arterial Blood Glucose (75-99) mg/dL Crossmatch 02/06/18 02/06/18 02/06/18 Range/Units 20:19 21:04 22:24 WBC (3.8-10.6) k/uL RBC (4.30-5.90) m/uL Hgb (13.0-17.5) gm/dL Hct (39.0-53.0) % Plt Count (150-450) k/uL Neutrophils # (1.3-7.7) k/uL Lymphocytes # (1.0-4.8) k/uL PT (9.0-12.0) sec INR (<1.2) APTT (22.0-30.0) sec ABG pH (7.35-7.45) ABG pCO2 (35-45) mmHg ABG pO2 (83-108) mmHg ABG HCO3 (21-25) mmol/L ABG Total CO2 (19-24) mmol/L ABG O2 Saturation (94-97) % ABG Hematocrit (34.0-46.0) % ABG Potassium (3.4-4.5) mmol/L ABG Ionized Calcium (4.5-5.3) mg/dL ABG Glucose (75-99) mg/dL Hemoglobin (13.0-17.5) gm/dL Chloride (98-107) mmol/L Creatinine (0.66-1.25) mg/dL Glucose (74-99) mg/dL POC Glucose (mg/dL) 127 H 119 H 125 H (75-99) mg/dL Calcium (8.4-10.2) mg/dL Magnesium (1.6-2.3) mg/dL Total Bilirubin (0.2-1.3) mg/dL ALT (21-72) U/L Alkaline Phosphatase (38-126) U/L Total Protein (6.3-8.2) g/dL Albumin (3.5-5.0) g/dL Arterial Blood Potassium (3.4-4.5) mmol/L Arterial Blood Glucose (75-99) mg/dL Crossmatch 02/06/18 02/07/18 02/07/18 Range/Units 23:14 00:30 01:15 WBC (3.8-10.6) k/uL RBC (4.30-5.90) m/uL Hgb (13.0-17.5) gm/dL Hct (39.0-53.0) % Plt Count (150-450) k/uL Neutrophils # (1.3-7.7) k/uL Lymphocytes # (1.0-4.8) k/uL PT (9.0-12.0) sec INR (<1.2) APTT (22.0-30.0) sec ABG pH (7.35-7.45) ABG pCO2 (35-45) mmHg ABG pO2 (83-108) mmHg ABG HCO3 (21-25) mmol/L ABG Total CO2 (19-24) mmol/L ABG O2 Saturation (94-97) % ABG Hematocrit (34.0-46.0) % ABG Potassium (3.4-4.5) mmol/L ABG Ionized Calcium (4.5-5.3) mg/dL ABG Glucose (75-99) mg/dL Hemoglobin (13.0-17.5) gm/dL Chloride (98-107) mmol/L Creatinine (0.66-1.25) mg/dL Glucose (74-99) mg/dL POC Glucose (mg/dL) 120 H 112 H 117 H (75-99) mg/dL Calcium (8.4-10.2) mg/dL Magnesium (1.6-2.3) mg/dL Total Bilirubin (0.2-1.3) mg/dL ALT (21-72) U/L Alkaline Phosphatase (38-126) U/L Total Protein (6.3-8.2) g/dL Albumin (3.5-5.0) g/dL Arterial Blood Potassium (3.4-4.5) mmol/L Arterial Blood Glucose (75-99) mg/dL Crossmatch 02/07/18 02/07/18 02/07/18 Range/Units 02:06 03:08 04:04 WBC (3.8-10.6) k/uL RBC (4.30-5.90) m/uL Hgb (13.0-17.5) gm/dL Hct (39.0-53.0) % Plt Count (150-450) k/uL Neutrophils # (1.3-7.7) k/uL Lymphocytes # (1.0-4.8) k/uL PT (9.0-12.0) sec INR (<1.2) APTT (22.0-30.0) sec ABG pH (7.35-7.45) ABG pCO2 (35-45) mmHg ABG pO2 (83-108) mmHg ABG HCO3 (21-25) mmol/L ABG Total CO2 (19-24) mmol/L ABG O2 Saturation (94-97) % ABG Hematocrit (34.0-46.0) % ABG Potassium (3.4-4.5) mmol/L ABG Ionized Calcium (4.5-5.3) mg/dL ABG Glucose (75-99) mg/dL Hemoglobin (13.0-17.5) gm/dL Chloride (98-107) mmol/L Creatinine (0.66-1.25) mg/dL Glucose (74-99) mg/dL POC Glucose (mg/dL) 118 H 110 H 117 H (75-99) mg/dL Calcium (8.4-10.2) mg/dL Magnesium (1.6-2.3) mg/dL Total Bilirubin (0.2-1.3) mg/dL ALT (21-72) U/L Alkaline Phosphatase (38-126) U/L Total Protein (6.3-8.2) g/dL Albumin (3.5-5.0) g/dL Arterial Blood Potassium (3.4-4.5) mmol/L Arterial Blood Glucose (75-99) mg/dL Crossmatch 02/07/18 02/07/18 02/07/18 Range/Units 05:20 05:20 05:20 WBC (3.8-10.6) k/uL RBC 3.73 L (4.30-5.90) m/uL Hgb 11.0 L (13.0-17.5) gm/dL Hct 33.4 L (39.0-53.0) % Plt Count 112 L (150-450) k/uL Neutrophils # (1.3-7.7) k/uL Lymphocytes # (1.0-4.8) k/uL PT 12.1 H (9.0-12.0) sec INR 1.3 H (<1.2) APTT (22.0-30.0) sec ABG pH (7.35-7.45) ABG pCO2 (35-45) mmHg ABG pO2 (83-108) mmHg ABG HCO3 (21-25) mmol/L ABG Total CO2 (19-24) mmol/L ABG O2 Saturation (94-97) % ABG Hematocrit (34.0-46.0) % ABG Potassium (3.4-4.5) mmol/L ABG Ionized Calcium (4.5-5.3) mg/dL ABG Glucose (75-99) mg/dL Hemoglobin (13.0-17.5) gm/dL Chloride 111 H (98-107) mmol/L Creatinine (0.66-1.25) mg/dL Glucose 109 H (74-99) mg/dL POC Glucose (mg/dL) (75-99) mg/dL Calcium (8.4-10.2) mg/dL Magnesium (1.6-2.3) mg/dL Total Bilirubin 1.5 H (0.2-1.3) mg/dL ALT 20 L (21-72) U/L Alkaline Phosphatase 33 L (38-126) U/L Total Protein 5.5 L (6.3-8.2) g/dL Albumin 3.4 L (3.5-5.0) g/dL Arterial Blood Potassium (3.4-4.5) mmol/L Arterial Blood Glucose (75-99) mg/dL Crossmatch 02/07/18 02/07/18 02/07/18 Range/Units 06:16 07:04 08:17 WBC (3.8-10.6) k/uL RBC (4.30-5.90) m/uL Hgb (13.0-17.5) gm/dL Hct (39.0-53.0) % Plt Count (150-450) k/uL Neutrophils # (1.3-7.7) k/uL Lymphocytes # (1.0-4.8) k/uL PT (9.0-12.0) sec INR (<1.2) APTT (22.0-30.0) sec ABG pH (7.35-7.45) ABG pCO2 (35-45) mmHg ABG pO2 (83-108) mmHg ABG HCO3 (21-25) mmol/L ABG Total CO2 (19-24) mmol/L ABG O2 Saturation (94-97) % ABG Hematocrit (34.0-46.0) % ABG Potassium (3.4-4.5) mmol/L ABG Ionized Calcium (4.5-5.3) mg/dL ABG Glucose (75-99) mg/dL Hemoglobin (13.0-17.5) gm/dL Chloride (98-107) mmol/L Creatinine (0.66-1.25) mg/dL Glucose (74-99) mg/dL POC Glucose (mg/dL) 114 H 116 H 112 H (75-99) mg/dL Calcium (8.4-10.2) mg/dL Magnesium (1.6-2.3) mg/dL Total Bilirubin (0.2-1.3) mg/dL ALT (21-72) U/L Alkaline Phosphatase (38-126) U/L Total Protein (6.3-8.2) g/dL Albumin (3.5-5.0) g/dL Arterial Blood Potassium (3.4-4.5) mmol/L Arterial Blood Glucose (75-99) mg/dL Crossmatch - Imaging and Cardiology Chest x-ray: report reviewed, image reviewed Assessment and Plan (1) Coronary artery disease Current Visit: Yes Status: Acute Code(s): I25.10 - ATHSCL HEART DISEASE OF [place] CORONARY ARTERY W/O ANG PCTRS SNOMED Code(s): 27371943 (2) Hypertension Current Visit: Yes Status: Acute Code(s): I10 - ESSENTIAL (PRIMARY) HYPERTENSION SNOMED Code(s): 95401098 (3) Hyperlipidemia Current Visit: Yes Status: Acute Code(s): E78.5 - HYPERLIPIDEMIA, UNSPECIFIED SNOMED Code(s): 99580598 (4) BPH (benign prostatic hyperplasia) Current Visit: Yes Status: Acute Code(s): N40.0 - BENIGN PROSTATIC HYPERPLASIA WITHOUT LOWER URINRY TRACT SYMP SNOMED Code(s): 268856719 (5) Osteoarthritis Current Visit: Yes Status: Acute Code(s): M19.90 - UNSPECIFIED OSTEOARTHRITIS, UNSPECIFIED SITE SNOMED Code(s): 371605166 (6) History of coronary artery bypass graft x 3 Current Visit: Yes Status: Acute Code(s): Z95.1 - PRESENCE OF AORTOCORONARY BYPASS GRAFT SNOMED Code(s): 946428521 (7) Paroxysmal atrial fibrillation Current Visit: Yes Status: Acute Code(s): I48.0 - PAROXYSMAL ATRIAL FIBRILLATION SNOMED Code(s): 014920285 Plan: 1. Continue aspirin, statin, Plavix and beta mateo. We will increase his beta mateo as tolerated. 2. Discontinue Cardizem drip and start Norvasc 5 mg by mouth daily. Do not discontinue Norvasc, in place for radial artery spasm prevention. 3. Wean oxygen as tolerated, encourage use of his incentive spirometry every hour while awake. 4. Bronchodilator and pulmonary management recommendations per Dr. Liang. 5. Will monitor daily labs and x-rays. 6. GI prophylaxis with Protonix, DVT prophylaxis with subcu heparin and SCDs. 7. Insulin management per primary care service. 8. Increased activity as tolerated. PT/OT/cardiac rehab consulted. 9. Discontinue right IJ Cordis, Mitchell-Sorin catheter and right arterial line. 10. Discontinue mediastinal chest tubes, keep right and left pleural chest tubes in place to low continuous wall suction -20 cm H2O. 11. Discontinue left arm KATELIN drain and right leg KATELIN drain. 12. More recommendations to follow based on patient's clinical course Time with Patient: Greater than 30
--- NOTE | 2018-02-07 10:40 | P.PN ---
Subjective Progress Note Date: 02/07/18 Principal diagnosis: Coronary artery disease status post re-do coronary artery bypass grafting. This is an 82-year-old male who is status post redo bypass grafting. The surgery was done by Dr. Mckeon. He's postop day #0. He had a right renal artery to LAD bypass, left radial artery to diagonal coronary artery, and SVG to PDA bypass. The patient is currently back in the intensive care unit. He is on the ventilator on the SIMV mode, rate 12, tidal volume 600, FiO2 100%, and PEEP of 5. Blood gases are currently pending. The patient's currently on lactated Ringer's at 50 mL an hour Cardizem drip at 5 mg an hour propofol at 25 mics per kilogram per minute and nitroglycerin at 5 mcg/m. The patient has some mild valvular heart disease is wall. The patient was recently having some exertional anginal symptoms while hiking [place]. This is increased since that time. For that reason, he was seen by cardiology and had a catheterization and was sent to see Dr. Mckeon. His history is positive for previous bypass grafting, hernia repair, cholecystectomy, hyperlipidemia, hypertension, arthritis, and CAD. The patient is seen today 02/07/2018 in follow-up in the intensive care unit. He was successfully extubated in approximately 4 hours yesterday. He is currently sitting up in a chair at the bedside. He is awake and alert in no acute distress. Chest x-ray reveals increasing left basilar opacity and obscuration of the left hemidiaphragm secondary to atelectasis/effusion. Chest tubes remain in place. His maintaining good O2 saturations in the 90s on 2 L/m per nasal cannula. He is pulling approximately 800 ML's on the incentive spirometer. His a lactated Ringer's at 50 MLS per hour. Insulin drip at 0.5 units per hour. Cleviprex at 2 mg per hour. Cardiac output 6.8, cardiac index 3.3. PA pressure 20/13, CVP 4. He has not required any blood replacement. Current hemoglobin 11.0. White count 9.6. Creatinine 0.79. Objective - Vital Signs Vital signs: Vital Signs Temp 99.5 F 02/07/18 00:00 Pulse 63 02/07/18 08:30 Resp 16 02/07/18 08:30 BP 133/62 02/07/18 08:30 Pulse Ox 93 L 02/07/18 08:30 Intake & Output 02/06/18 02/07/18 02/07/18 18:59 06:59 18:59 Intake Total 197.516 1977.563 684.825 Output Total 2635 833 296 Balance -1673.352 819.563 388.825 Weight 88 kg Intake: IV 129 468 76 cardiac output 60 360 40 pressure bags 36 108 36 Intake, IV Titration 832.648 934.563 608.825 Amount ACETAMINOPHEN IV (For NPO 100 200 ) 1,000 mg In Empty Bag 1 bag @ 400 mls/hr IVPB Q6H [facility] Rx#:[id number] Albumin Human 5% 250 ml 250 In Empty Bag 1 bag @ 250 mls/hr IVPB Q1HR PRN Rx#: [id number] Clevidipine Butyrate 25 50.000 mg In Empty Bag 1 bag @ 1 MG/HR 2 mls/hr IV .Q24H [facility] Rx#:[id number] Diltiazem 50 mg In Sodium 71.333 Chloride 0.9% 40 ml @ 5 MG/HR 5 mls/hr IV .Q10H [facility] Rx#:[id number] Insulin Regular 100 unit 3.320 6.205 In Sodium Chloride 0.9% 100 ml @ Per Protocol IV .Q0M [facility] Rx#:[id number] Lactated Ringers 1,000 ml 80 600 140 @ 20 mls/hr IV .Q24H [facility] Rx#:[id number] Magnesium Sulfate-D5w Pmx 300 1 gm In Dextrose/Water 1 100ml.bag @ 100 mls/hr IVPB Q1H [facility] Rx#: [id number] Magnesium Sulfate-D5w Pmx 200 1 gm In Dextrose/Water 1 100ml.bag @ 100 mls/hr IVPB Q1H [facility] Rx#: [id number] Nitroglycerin-D5w Pmx 50 7.025 18.825 mg In Dextrose/Water 1 250ml.bag @ 5 MCG/MIN 1.5 mls/hr IV .Q24H [facility] Rx#: [id number] Potassium Chloride 10 meq 300 In Water For Injection 1 100ml.bag @ 100 mls/hr IVPB Q1H [facility] Rx#: [id number] Propofol 1,000 mg In 49.328 Empty Bag 1 bag @ Titrate IV .Q0M [facility] Rx#: [id number] TPN/PPN 250 pressure bags 250 Output: Chest Tube Drainage 210 336 130 left and right 145 205 100 mediastinal left and right pleural 65 131 30 Drainage 50 left forarm 25 right lower leg 25 Urine 625 447 166 Estimated Blood Loss 1800 Other: Voiding Method Indwelling Catheter Indwelling Catheter Indwelling Catheter ABP, PAP, CO, CI - Last Documented Arterial Blood Pressure 125/56 Pulmonary Artery Pressure 20/13 Cardiac Output 6.8 Cardiac Index 3.3 - Exam GENERAL EXAM: Alert, active, comfortable in no apparent distress. HEAD: Normocephalic. EYES: Normal reaction of pupils, equal size. NOSE: Clear with pink turbinates. THROAT: No erythema or exudates. NECK: No masses, no JVD. Right IJ catheter in place. CHEST: Dressing dry and intact, her hugger in place. Epicardial wires in place. LUNGS: Equal air entry with no crackles, wheeze, rhonchi or dullness. CVS: S1 and S2 normal with no audible murmur, regular rhythm. ABDOMEN: No hepatosplenomegaly, normal bowel sounds, no guarding or rigidity. SPINE: No scoliosis or deformity SKIN: No rashes CENTRAL NERVOUS SYSTEM: No focal deficits, tone is normal in all 4 extremities. EXTREMITIES: Right brachial arterial line in place. Left arm KATELIN drain in place. Right leg KATELIN drain in place. Sequential compression devices are in place. Peripheral pulses are intact. - Labs CBC & Chem 7: 02/07/18 05:20 02/07/18 05:20 Labs: Abnormal Lab Results - Last 24 Hours (Table) 01/29/18 02/06/18 02/06/18 Range/Units 09:00 08:31 09:04 WBC (3.8-10.6) k/uL RBC (4.30-5.90) m/uL Hgb (13.0-17.5) gm/dL Hct (39.0-53.0) % Plt Count (150-450) k/uL Neutrophils # (1.3-7.7) k/uL Lymphocytes # (1.0-4.8) k/uL PT (9.0-12.0) sec INR (<1.2) APTT (22.0-30.0) sec ABG pH 7.29 L (7.35-7.45) ABG pCO2 57 H (35-45) mmHg ABG pO2 293 H 256 H (83-108) mmHg ABG HCO3 26 H 27 H (21-25) mmol/L ABG Total CO2 28 H 29 H (19-24) mmol/L ABG O2 Saturation 99.9 H 99.7 H (94-97) % ABG Hematocrit (34.0-46.0) % ABG Potassium (3.4-4.5) mmol/L ABG Ionized Calcium (4.5-5.3) mg/dL ABG Glucose (75-99) mg/dL Hemoglobin 12.9 L (13.0-17.5) gm/dL Chloride (98-107) mmol/L Creatinine (0.66-1.25) mg/dL Glucose (74-99) mg/dL POC Glucose (mg/dL) (75-99) mg/dL Calcium (8.4-10.2) mg/dL Magnesium (1.6-2.3) mg/dL Total Bilirubin (0.2-1.3) mg/dL ALT (21-72) U/L Alkaline Phosphatase (38-126) U/L Total Protein (6.3-8.2) g/dL Albumin (3.5-5.0) g/dL Arterial Blood Potassium (3.4-4.5) mmol/L Arterial Blood Glucose (75-99) mg/dL Crossmatch See Detail 02/06/18 02/06/18 02/06/18 Range/Units 09:34 10:33 11:14 WBC (3.8-10.6) k/uL RBC (4.30-5.90) m/uL Hgb (13.0-17.5) gm/dL Hct (39.0-53.0) % Plt Count (150-450) k/uL Neutrophils # (1.3-7.7) k/uL Lymphocytes # (1.0-4.8) k/uL PT (9.0-12.0) sec INR (<1.2) APTT (22.0-30.0) sec ABG pH 7.32 L (7.35-7.45) ABG pCO2 47 H (35-45) mmHg ABG pO2 277 H 298 H 291 H (83-108) mmHg ABG HCO3 (21-25) mmol/L ABG Total CO2 25 H 25 H (19-24) mmol/L ABG O2 Saturation 99.8 H 99.9 H 100.0 H (94-97) % ABG Hematocrit 32 L 30 L (34.0-46.0) % ABG Potassium (3.4-4.5) mmol/L ABG Ionized Calcium 4.3 L 4.2 L 4.1 L (4.5-5.3) mg/dL ABG Glucose 101 H 103 H 105 H (75-99) mg/dL Hemoglobin 11.4 L 10.5 L 9.9 L (13.0-17.5) gm/dL Chloride (98-107) mmol/L Creatinine (0.66-1.25) mg/dL Glucose (74-99) mg/dL POC Glucose (mg/dL) (75-99) mg/dL Calcium (8.4-10.2) mg/dL Magnesium (1.6-2.3) mg/dL Total Bilirubin (0.2-1.3) mg/dL ALT (21-72) U/L Alkaline Phosphatase (38-126) U/L Total Protein (6.3-8.2) g/dL Albumin (3.5-5.0) g/dL Arterial Blood Potassium (3.4-4.5) mmol/L Arterial Blood Glucose 101 H 103 H 105 H (75-99) mg/dL Crossmatch 02/06/18 02/06/18 02/06/18 Range/Units 11:45 12:33 13:37 WBC (3.8-10.6) k/uL RBC (4.30-5.90) m/uL Hgb (13.0-17.5) gm/dL Hct (39.0-53.0) % Plt Count (150-450) k/uL Neutrophils # (1.3-7.7) k/uL Lymphocytes # (1.0-4.8) k/uL PT (9.0-12.0) sec INR (<1.2) APTT (22.0-30.0) sec ABG pH 7.29 L 7.33 L (7.35-7.45) ABG pCO2 46 H (35-45) mmHg ABG pO2 206 H 155 H 119 H (83-108) mmHg ABG HCO3 (21-25) mmol/L ABG Total CO2 (19-24) mmol/L ABG O2 Saturation 99.5 H 99.4 H 98.6 H (94-97) % ABG Hematocrit 32 L 31 L 31 L (34.0-46.0) % ABG Potassium 3.3 L (3.4-4.5) mmol/L ABG Ionized Calcium 4.1 L (4.5-5.3) mg/dL ABG Glucose 117 H 111 H 121 H (75-99) mg/dL Hemoglobin 10.3 L 10.0 L 10.0 L (13.0-17.5) gm/dL Chloride (98-107) mmol/L Creatinine (0.66-1.25) mg/dL Glucose (74-99) mg/dL POC Glucose (mg/dL) (75-99) mg/dL Calcium (8.4-10.2) mg/dL Magnesium (1.6-2.3) mg/dL Total Bilirubin (0.2-1.3) mg/dL ALT (21-72) U/L Alkaline Phosphatase (38-126) U/L Total Protein (6.3-8.2) g/dL Albumin (3.5-5.0) g/dL Arterial Blood Potassium 3.3 L (3.4-4.5) mmol/L Arterial Blood Glucose 117 H 111 H 121 H (75-99) mg/dL Crossmatch 02/06/18 02/06/18 02/06/18 Range/Units 14:18 14:20 14:20 WBC (3.8-10.6) k/uL RBC 3.52 L (4.30-5.90) m/uL Hgb 10.5 L D (13.0-17.5) gm/dL Hct 31.6 L (39.0-53.0) % Plt Count 109 L (150-450) k/uL Neutrophils # 8.6 H (1.3-7.7) k/uL Lymphocytes # 0.9 L (1.0-4.8) k/uL PT (9.0-12.0) sec INR (<1.2) APTT (22.0-30.0) sec ABG pH (7.35-7.45) ABG pCO2 (35-45) mmHg ABG pO2 (83-108) mmHg ABG HCO3 (21-25) mmol/L ABG Total CO2 (19-24) mmol/L ABG O2 Saturation (94-97) % ABG Hematocrit (34.0-46.0) % ABG Potassium (3.4-4.5) mmol/L ABG Ionized Calcium (4.5-5.3) mg/dL ABG Glucose (75-99) mg/dL Hemoglobin (13.0-17.5) gm/dL Chloride 113 H (98-107) mmol/L Creatinine 0.65 L (0.66-1.25) mg/dL Glucose 119 H (74-99) mg/dL POC Glucose (mg/dL) 121 H (75-99) mg/dL Calcium 8.3 L (8.4-10.2) mg/dL Magnesium 1.5 L (1.6-2.3) mg/dL Total Bilirubin 1.4 H (0.2-1.3) mg/dL ALT (21-72) U/L Alkaline Phosphatase 32 L (38-126) U/L Total Protein 5.2 L (6.3-8.2) g/dL Albumin 3.2 L (3.5-5.0) g/dL Arterial Blood Potassium (3.4-4.5) mmol/L Arterial Blood Glucose (75-99) mg/dL Crossmatch 02/06/18 02/06/18 02/06/18 Range/Units 14:20 14:54 14:57 WBC (3.8-10.6) k/uL RBC (4.30-5.90) m/uL Hgb (13.0-17.5) gm/dL Hct (39.0-53.0) % Plt Count (150-450) k/uL Neutrophils # (1.3-7.7) k/uL Lymphocytes # (1.0-4.8) k/uL PT 12.6 H (9.0-12.0) sec INR 1.3 H (<1.2) APTT 30.8 H (22.0-30.0) sec ABG pH 7.33 L (7.35-7.45) ABG pCO2 (35-45) mmHg ABG pO2 395 H (83-108) mmHg ABG HCO3 (21-25) mmol/L ABG Total CO2 25 H (19-24) mmol/L ABG O2 Saturation 100.0 H (94-97) % ABG Hematocrit (34.0-46.0) % ABG Potassium (3.4-4.5) mmol/L ABG Ionized Calcium (4.5-5.3) mg/dL ABG Glucose (75-99) mg/dL Hemoglobin (13.0-17.5) gm/dL Chloride (98-107) mmol/L Creatinine (0.66-1.25) mg/dL Glucose (74-99) mg/dL POC Glucose (mg/dL) 125 H (75-99) mg/dL Calcium (8.4-10.2) mg/dL Magnesium (1.6-2.3) mg/dL Total Bilirubin (0.2-1.3) mg/dL ALT (21-72) U/L Alkaline Phosphatase (38-126) U/L Total Protein (6.3-8.2) g/dL Albumin (3.5-5.0) g/dL Arterial Blood Potassium (3.4-4.5) mmol/L Arterial Blood Glucose (75-99) mg/dL Crossmatch 02/06/18 02/06/18 02/06/18 Range/Units 16:03 17:01 18:08 WBC (3.8-10.6) k/uL RBC (4.30-5.90) m/uL Hgb (13.0-17.5) gm/dL Hct (39.0-53.0) % Plt Count (150-450) k/uL Neutrophils # (1.3-7.7) k/uL Lymphocytes # (1.0-4.8) k/uL PT (9.0-12.0) sec INR (<1.2) APTT (22.0-30.0) sec ABG pH (7.35-7.45) ABG pCO2 (35-45) mmHg ABG pO2 118 H (83-108) mmHg ABG HCO3 (21-25) mmol/L ABG Total CO2 (19-24) mmol/L ABG O2 Saturation 99.2 H (94-97) % ABG Hematocrit (34.0-46.0) % ABG Potassium (3.4-4.5) mmol/L ABG Ionized Calcium (4.5-5.3) mg/dL ABG Glucose (75-99) mg/dL Hemoglobin (13.0-17.5) gm/dL Chloride (98-107) mmol/L Creatinine (0.66-1.25) mg/dL Glucose (74-99) mg/dL POC Glucose (mg/dL) 127 H 146 H (75-99) mg/dL Calcium (8.4-10.2) mg/dL Magnesium (1.6-2.3) mg/dL Total Bilirubin (0.2-1.3) mg/dL ALT (21-72) U/L Alkaline Phosphatase (38-126) U/L Total Protein (6.3-8.2) g/dL Albumin (3.5-5.0) g/dL Arterial Blood Potassium (3.4-4.5) mmol/L Arterial Blood Glucose (75-99) mg/dL Crossmatch 02/06/18 02/06/18 02/06/18 Range/Units 18:10 18:12 19:04 WBC 11.7 H (3.8-10.6) k/uL RBC 3.65 L (4.30-5.90) m/uL Hgb 10.8 L (13.0-17.5) gm/dL Hct 32.7 L (39.0-53.0) % Plt Count 129 L (150-450) k/uL Neutrophils # 10.2 H (1.3-7.7) k/uL Lymphocytes # 0.7 L (1.0-4.8) k/uL PT (9.0-12.0) sec INR (<1.2) APTT (22.0-30.0) sec ABG pH (7.35-7.45) ABG pCO2 (35-45) mmHg ABG pO2 (83-108) mmHg ABG HCO3 (21-25) mmol/L ABG Total CO2 (19-24) mmol/L ABG O2 Saturation (94-97) % ABG Hematocrit (34.0-46.0) % ABG Potassium (3.4-4.5) mmol/L ABG Ionized Calcium (4.5-5.3) mg/dL ABG Glucose (75-99) mg/dL Hemoglobin (13.0-17.5) gm/dL Chloride (98-107) mmol/L Creatinine (0.66-1.25) mg/dL Glucose (74-99) mg/dL POC Glucose (mg/dL) 142 H 145 H (75-99) mg/dL Calcium (8.4-10.2) mg/dL Magnesium (1.6-2.3) mg/dL Total Bilirubin (0.2-1.3) mg/dL ALT (21-72) U/L Alkaline Phosphatase (38-126) U/L Total Protein (6.3-8.2) g/dL Albumin (3.5-5.0) g/dL Arterial Blood Potassium (3.4-4.5) mmol/L Arterial Blood Glucose (75-99) mg/dL Crossmatch 02/06/18 02/06/18 02/06/18 Range/Units 20:19 21:04 22:24 WBC (3.8-10.6) k/uL RBC (4.30-5.90) m/uL Hgb (13.0-17.5) gm/dL Hct (39.0-53.0) % Plt Count (150-450) k/uL Neutrophils # (1.3-7.7) k/uL Lymphocytes # (1.0-4.8) k/uL PT (9.0-12.0) sec INR (<1.2) APTT (22.0-30.0) sec ABG pH (7.35-7.45) ABG pCO2 (35-45) mmHg ABG pO2 (83-108) mmHg ABG HCO3 (21-25) mmol/L ABG Total CO2 (19-24) mmol/L ABG O2 Saturation (94-97) % ABG Hematocrit (34.0-46.0) % ABG Potassium (3.4-4.5) mmol/L ABG Ionized Calcium (4.5-5.3) mg/dL ABG Glucose (75-99) mg/dL Hemoglobin (13.0-17.5) gm/dL Chloride (98-107) mmol/L Creatinine (0.66-1.25) mg/dL Glucose (74-99) mg/dL POC Glucose (mg/dL) 127 H 119 H 125 H (75-99) mg/dL Calcium (8.4-10.2) mg/dL Magnesium (1.6-2.3) mg/dL Total Bilirubin (0.2-1.3) mg/dL ALT (21-72) U/L Alkaline Phosphatase (38-126) U/L Total Protein (6.3-8.2) g/dL Albumin (3.5-5.0) g/dL Arterial Blood Potassium (3.4-4.5) mmol/L Arterial Blood Glucose (75-99) mg/dL Crossmatch 02/06/18 02/07/18 02/07/18 Range/Units 23:14 00:30 01:15 WBC (3.8-10.6) k/uL RBC (4.30-5.90) m/uL Hgb (13.0-17.5) gm/dL Hct (39.0-53.0) % Plt Count (150-450) k/uL Neutrophils # (1.3-7.7) k/uL Lymphocytes # (1.0-4.8) k/uL PT (9.0-12.0) sec INR (<1.2) APTT (22.0-30.0) sec ABG pH (7.35-7.45) ABG pCO2 (35-45) mmHg ABG pO2 (83-108) mmHg ABG HCO3 (21-25) mmol/L ABG Total CO2 (19-24) mmol/L ABG O2 Saturation (94-97) % ABG Hematocrit (34.0-46.0) % ABG Potassium (3.4-4.5) mmol/L ABG Ionized Calcium (4.5-5.3) mg/dL ABG Glucose (75-99) mg/dL Hemoglobin (13.0-17.5) gm/dL Chloride (98-107) mmol/L Creatinine (0.66-1.25) mg/dL Glucose (74-99) mg/dL POC Glucose (mg/dL) 120 H 112 H 117 H (75-99) mg/dL Calcium (8.4-10.2) mg/dL Magnesium (1.6-2.3) mg/dL Total Bilirubin (0.2-1.3) mg/dL ALT (21-72) U/L Alkaline Phosphatase (38-126) U/L Total Protein (6.3-8.2) g/dL Albumin (3.5-5.0) g/dL Arterial Blood Potassium (3.4-4.5) mmol/L Arterial Blood Glucose (75-99) mg/dL Crossmatch 02/07/18 02/07/18 02/07/18 Range/Units 02:06 03:08 04:04 WBC (3.8-10.6) k/uL RBC (4.30-5.90) m/uL Hgb (13.0-17.5) gm/dL Hct (39.0-53.0) % Plt Count (150-450) k/uL Neutrophils # (1.3-7.7) k/uL Lymphocytes # (1.0-4.8) k/uL PT (9.0-12.0) sec INR (<1.2) APTT (22.0-30.0) sec ABG pH (7.35-7.45) ABG pCO2 (35-45) mmHg ABG pO2 (83-108) mmHg ABG HCO3 (21-25) mmol/L ABG Total CO2 (19-24) mmol/L ABG O2 Saturation (94-97) % ABG Hematocrit (34.0-46.0) % ABG Potassium (3.4-4.5) mmol/L ABG Ionized Calcium (4.5-5.3) mg/dL ABG Glucose (75-99) mg/dL Hemoglobin (13.0-17.5) gm/dL Chloride (98-107) mmol/L Creatinine (0.66-1.25) mg/dL Glucose (74-99) mg/dL POC Glucose (mg/dL) 118 H 110 H 117 H (75-99) mg/dL Calcium (8.4-10.2) mg/dL Magnesium (1.6-2.3) mg/dL Total Bilirubin (0.2-1.3) mg/dL ALT (21-72) U/L Alkaline Phosphatase (38-126) U/L Total Protein (6.3-8.2) g/dL Albumin (3.5-5.0) g/dL Arterial Blood Potassium (3.4-4.5) mmol/L Arterial Blood Glucose (75-99) mg/dL Crossmatch 02/07/18 02/07/18 02/07/18 Range/Units 05:20 05:20 05:20 WBC (3.8-10.6) k/uL RBC 3.73 L (4.30-5.90) m/uL Hgb 11.0 L (13.0-17.5) gm/dL Hct 33.4 L (39.0-53.0) % Plt Count 112 L (150-450) k/uL Neutrophils # (1.3-7.7) k/uL Lymphocytes # (1.0-4.8) k/uL PT 12.1 H (9.0-12.0) sec INR 1.3 H (<1.2) APTT (22.0-30.0) sec ABG pH (7.35-7.45) ABG pCO2 (35-45) mmHg ABG pO2 (83-108) mmHg ABG HCO3 (21-25) mmol/L ABG Total CO2 (19-24) mmol/L ABG O2 Saturation (94-97) % ABG Hematocrit (34.0-46.0) % ABG Potassium (3.4-4.5) mmol/L ABG Ionized Calcium (4.5-5.3) mg/dL ABG Glucose (75-99) mg/dL Hemoglobin (13.0-17.5) gm/dL Chloride 111 H (98-107) mmol/L Creatinine (0.66-1.25) mg/dL Glucose 109 H (74-99) mg/dL POC Glucose (mg/dL) (75-99) mg/dL Calcium (8.4-10.2) mg/dL Magnesium (1.6-2.3) mg/dL Total Bilirubin 1.5 H (0.2-1.3) mg/dL ALT 20 L (21-72) U/L Alkaline Phosphatase 33 L (38-126) U/L Total Protein 5.5 L (6.3-8.2) g/dL Albumin 3.4 L (3.5-5.0) g/dL Arterial Blood Potassium (3.4-4.5) mmol/L Arterial Blood Glucose (75-99) mg/dL Crossmatch 02/07/18 02/07/18 02/07/18 Range/Units 06:16 07:04 08:17 WBC (3.8-10.6) k/uL RBC (4.30-5.90) m/uL Hgb (13.0-17.5) gm/dL Hct (39.0-53.0) % Plt Count (150-450) k/uL Neutrophils # (1.3-7.7) k/uL Lymphocytes # (1.0-4.8) k/uL PT (9.0-12.0) sec INR (<1.2) APTT (22.0-30.0) sec ABG pH (7.35-7.45) ABG pCO2 (35-45) mmHg ABG pO2 (83-108) mmHg ABG HCO3 (21-25) mmol/L ABG Total CO2 (19-24) mmol/L ABG O2 Saturation (94-97) % ABG Hematocrit (34.0-46.0) % ABG Potassium (3.4-4.5) mmol/L ABG Ionized Calcium (4.5-5.3) mg/dL ABG Glucose (75-99) mg/dL Hemoglobin (13.0-17.5) gm/dL Chloride (98-107) mmol/L Creatinine (0.66-1.25) mg/dL Glucose (74-99) mg/dL POC Glucose (mg/dL) 114 H 116 H 112 H (75-99) mg/dL Calcium (8.4-10.2) mg/dL Magnesium (1.6-2.3) mg/dL Total Bilirubin (0.2-1.3) mg/dL ALT (21-72) U/L Alkaline Phosphatase (38-126) U/L Total Protein (6.3-8.2) g/dL Albumin (3.5-5.0) g/dL Arterial Blood Potassium (3.4-4.5) mmol/L Arterial Blood Glucose (75-99) mg/dL Crossmatch Assessment and Plan Assessment: Assessment Postop day #1, status post redo three-vessel bypass grafting Routine postoperative ventilatory management. Successfully extubated yesterday. Nasal O2. History of hypertension History of hyperlipidemia Previous history of bypass grafting, 1996 History of coronary artery disease History of DJD Plan: The patient was seen and evaluated by Dr. Liang. Chest x-ray and labs were reviewed. The patient is working well with the incentive spirometer. Maintaining good O2 saturations in the 90s on 2 L/m per nasal cannula. Mediastinal chest tubes to be removed today. We will increase his activity as tolerated. We'll continue to follow and make further recommendations based on his clinical status. I, the cosigning physician, performed a history & physical examination of the patient. Lungs sounds with crackles in the bilateral posterior bases. Maintaining good O2 saturations in the 90s on 2 L/m per nasal cannula. I discussed the assessment and plan of care with my nurse practitioner, Waleska Frank. I attest to the above note as dictated by her.
[2018-02-07 11:05] VITALS: BMI 26.6
[2018-02-07] MEDS: amLODIPine 5 MG TAB PO SCH (11:16)
[2018-02-07] MEDS: METOPROLOL TARTRATE 12.5 MG TAB PO SCH ×2 (11:17→20:55)
[2018-02-07] MEDS ORDERED: BISACODYL 10 MG SUPP RECTAL PRN (11:51)
[2018-02-07] MEDS ORDERED: MAGNESIUM HYDROXIDE 2,400 MG/10 ML CUP PO PRN (11:51)
[2018-02-07 12:18] LABS: Glucose,Whole Blood 103 mg/dL (75-99)
[2018-02-07] MEDS: INSULIN ASPART 100 UNIT/ML 1 ML 10 ML VIAL SQ SCH ×3 (12:30→20:49)
[2018-02-07 17:40] LABS: Glucose,Whole Blood 101 mg/dL (75-99)
[2018-02-07 20:51] LABS: Glucose,Whole Blood 119 mg/dL (75-99)
[2018-02-07] MEDS: SENNOSIDES-DOCUSATE SODIUM 1 EACH TAB PO SCH (20:55)
[2018-02-07] MEDS ORDERED: HYDROcodone/APAP 5-325MG 1 EACH TAB PO PRN ×2 (21:00)
[2018-02-07] MEDS ORDERED: METOPROLOL TARTRATE 12.5 MG TAB PO SCH (21:00)
[2018-02-08] MEDS: ACETAMINOPHEN IV (For NPO) 1,000 MG in EMPTY BAG 1 BAG IVPB SCH ×3 (00:10→11:21)
[2018-02-08] MEDS: HEPARIN SODIUM,PORCINE 5,000 UNIT/ML 1 ML VIAL SQ SCH ×3 (05:29→21:10)
[2018-02-08 06:02] LABS: Basophils % (A) 0 %; Eosinophils # (A) 0.3 k/uL (0-0.7); Eosinophils % (A) 4 %; HCT 31.3 % (39.0-53.0); HGB 10.2 gm/dL (13.0-17.5); Lymphocytes # (A) 0.9 k/uL (1.0-4.8); Lymphocytes % (A) 10 %; MCH 29.4 pg (25.0-35.0); MCHC 32.7 g/dL (31.0-37.0); MCV 89.9 fL (80.0-100.0); Mean Platelet Volume 8.2; Monocytes # (A) 0.5 k/uL (0-1.0); Monocytes % (A) 5 %; Neutrophils % (A) 79 %; Platelet Count 100 k/uL (150-450); RBC 3.48 m/uL (4.30-5.90); RDW 13.7 % (11.5-15.5); WBC 8.8 k/uL (3.8-10.6)
[2018-02-08 06:17] LABS: ALT 17 U/L (21-72); AST 39 U/L (17-59); Albumin 3.2 g/dL (3.5-5.0); Alkaline Phosphatase 46 U/L (38-126); Anion Gap 7 mmol/L; Blood Urea Nitrogen 19 mg/dL (9-20); Calcium 8.3 mg/dL (8.4-10.2); Carbon Dioxide 25 mmol/L (22-30); Chloride 105 mmol/L (98-107); Glucose 106 mg/dL (74-99); INR 1.2 (<1.2); Magnesium 2.2 mg/dL (1.6-2.3); Potassium 4.1 mmol/L (3.5-5.1); Prothrombin Time 11.2 sec (9.0-12.0); Sodium 137 mmol/L (137-145); Total Bilirubin 1.3 mg/dL (0.2-1.3); Total Protein 5.4 g/dL (6.3-8.2)
[2018-02-08 06:22] LABS: Ionized Calcium 4.7 mg/dL (4.5-5.3)
--- NOTE | 2018-02-08 07:08 | CONS ---
CONSULTATION DATE OF CONSULTATION: 02/07/2018 REASON FOR CONSULTATION: Medical management requested by Dr. Mckeon. CONSULTATION: This is a pleasant 82-year-old patient of Dr. Gandhi. The patient has had a previous bypass in 1996, done by Dr. Montgomery. Chronic stable medical conditions include hypertension, hyperlipidemia, paroxysmal atrial fibrillation. Patient underwent a coronary bypass yesterday. The patient was successfully extubated. Currently sitting up in a chair. Family at the bedside. The patient had a mediastinum chest tube taken out. The patient still has 2 pleural chest tubes. He is in sinus rhythm. Did tolerate a meal. Did take a few steps. The patient is off all drips currently. REVIEW OF SYSTEMS: CONSTITUTIONAL: Tired. HEENT: None. RESPIRATORY: Slightly short of breath. CARDIOVASCULAR: Some pain at the operative site. DERMATOLOGICAL: None. HEMATOLOGIC: None. LYMPHATICS: None. PSYCHIATRY: None. NEUROLOGICAL: None. GASTROINTESTINAL: None. MUSCULOSKELETAL: Some pain in the knees and lower back. PAST MEDICAL HISTORY: Coronary artery disease with bypass, atrial fibrillation, hyperlipidemia, hypertension, osteoarthritis. PAST SURGICAL HISTORY: Cholecystectomy, coronary bypass in 1996, TURP. SOCIAL HISTORY: The patient smoked a pack a day for 10 years stopped close to 40 years ago. Lives with his . Did work as a banker. Alcohol occasionally. FAMILY HISTORY: Cancer type unknown. HOME MEDICATIONS: 1. Eliquis 2.5 mg a day. 2. Amlodipine 5 mg q.h.s. 3. PreserVision Areds 1 capsule p.o. daily. 4. Zocor 20 mg q.h.s. 5. Omeprazole 20 mg p.o. daily. 6. Lopressor 12.5 p.o. daily. 7. Imdur ER 30 mg p.o. daily. 8. Aspirin 81 mg p.o. daily. ALLERGIES: None. PHYSICAL EXAMINATION: On examination, temperature 98.5, pulse 68, respiration 17, blood pressure 115/58, pulse ox 92%. GENERAL APPEARANCE: Average built, sitting on a chair, awake. EYES: Pupils equal. Conjunctivae normal. HENT: External appearance of nose and ears normal. Oral cavity normal. NECK: JVD unable to assess. Mass not palpable. RESPIRATORY: Effort increased. LUNGS: Decreased breath sounds. CARDIOVASCULAR: Heart sounds muffled. No edema. ABDOMEN: Soft, nontender. Liver and spleen not palpable. LYMPHATIC: No lymph node palpable in the neck or axillae. PSYCHIATRY: Alert and oriented x3. Mood and affect normal. CHEST: The patient has got bilateral chest tubes. NEUROLOGICAL: Pupils equal. No facial asymmetry. Power and sensation grossly intact. INVESTIGATIONS: White count 9.6, hemoglobin 11. Potassium 4.5. BUN and creatinine normal. Patient's preop hemoglobin was 14. ASSESSMENT: 1. Coronary bypass redo. 2. Paroxysmal atrial fibrillation, currently in sinus rhythm. 3. Coronary artery disease. 4. Hyperlipidemia. 5. Essential hypertension. 6. Primary osteoarthritis, knees. 7. Acute postoperative blood loss anemia expected from surgery. PLAN: The patient is currently on DuoNeb, had received IV amiodarone earlier, Norvasc, aspirin, Lipitor, Plavix, subcutaneous heparin, Protonix, Senokot S, [address] The patient's and 2 daughters at the bedside. Care was discussed. Continue current medication and treatment plan. Thank you Dr. Mckeon. QUIRINO / HARSHADN: [id number] /
--- NOTE | 2018-02-08 07:45 | XR ---
EXAMINATION TYPE: XR chest 1V portable DATE OF EXAM: 02/08/2018 CLINICAL HISTORY: Difficulty breathing progress study. Post open cardiac surgery. TECHNIQUE: Single AP portable upright view of the chest is obtained. COMPARISON: Chest x-ray from one day earlier and older studies. FINDINGS: There is interval removal of right internal jugular Independence-Sorin catheter and mediastinal nilsa inage tube. Bibasilar chest tubes remain in place. Post CABG changes with mediastinal clips and guerrero al wires is redemonstrated. There is stable cardiomegaly. There is persistent right basilar opacity. There is more prominent left basilar opacity. No sizable pneumothorax is seen bilaterally. Low lung v olumes are redemonstrated. Osseous structures are intact. IMPRESSION: Interval removal of mediastinal drainage catheter. There is persistent low lung volumes a nd cardiomegaly with mild central vascular congestion and small left pleural effusion and left greate r than right bibasilar atelectasis and/or infiltrate all redemonstrated.
[2018-02-08] MEDS ORDERED: FUROSEMIDE 10 MG/ML 2 ML VIAL IV ONE (08:02)
[2018-02-08] MEDS: KETOROLAC 30 MG/ML 1 ML VIAL IVP PRN (08:07)
[2018-02-08] MEDS: CLOPIDOGREL 75 MG TAB PO SCH (08:07)
[2018-02-08] MEDS: amLODIPine 5 MG TAB PO SCH (08:08)
[2018-02-08] MEDS: METOPROLOL TARTRATE 25 MG TAB PO SCH ×2 (08:08→21:09)
[2018-02-08] MEDS: ATORVASTATIN 40 MG TAB PO SCH (08:08)
[2018-02-08] MEDS: ASPIRIN 325 MG TAB PO SCH (08:08)
[2018-02-08] MEDS: PANTOPRAZOLE 40 MG TABLET PO SCH (08:08)
--- NOTE | 2018-02-08 08:11 | P.PN ---
Subjective Progress Note Date: 02/08/18 This is a 82-year-old gentleman who had redo bypass surgery with RIDLEY graft to the LAD and diagonal and vein graft to the RCA. Patient complaining of cough. Denies any significant chest pain or shortness of breath. Patient had a few rales at the bases. Chest x-ray showed some atelectasis without any significant CHF. He is in sinus rhythm with APCs. Vital signs are otherwise stable. We'll continue current medical therapy. Incentive spirometry. Transfer to telemetry unit Objective - Vital Signs Vital signs: Vital Signs Temp 98.1 F 02/08/18 04:00 Pulse 86 02/08/18 07:00 Resp 21 02/08/18 07:00 BP 130/110 02/08/18 07:00 Pulse Ox 93 L 02/08/18 07:00 Intake & Output 02/07/18 02/08/18 02/08/18 18:59 06:59 18:59 Intake Total 1660.075 770 Output Total 616 1010 Balance 1044.075 -240 Weight 88 kg 87 kg Intake: IV 76 cardiac output 40 pressure bags 36 Intake, IV Titration 984.075 290 Amount ACETAMINOPHEN IV (For NPO 100 100 ) 1,000 mg In Empty Bag 1 bag @ 400 mls/hr IVPB Q6H [facility] Rx#:[id number] ACETAMINOPHEN IV (For NPO 100 100 ) 1,000 mg In Empty Bag 1 bag @ 400 mls/hr IVPB Q6HR [facility] Rx#:[id number] Albumin Human 5% 250 ml 250 In Empty Bag 1 bag @ 250 mls/hr IVPB Q1HR PRN Rx#: [id number] Diltiazem 50 mg In Sodium 35.25 Chloride 0.9% 40 ml @ 5 MG/HR 5 mls/hr IV .Q10H [facility] Rx#:[id number] Lactated Ringers 1,000 ml 280 90 @ 20 mls/hr IV .Q24H [facility] Rx#:[id number] Magnesium Sulfate-D5w Pmx 200 1 gm In Dextrose/Water 1 100ml.bag @ 100 mls/hr IVPB Q1H [facility] Rx#: [id number] Nitroglycerin-D5w Pmx 50 18.825 mg In Dextrose/Water 1 250ml.bag @ 5 MCG/MIN 1.5 mls/hr IV .Q24H [facility] Rx#: [id number] Oral 600 480 Output: Chest Tube Drainage 210 120 left and right 100 mediastinal left and right pleural 30 left pleural 15 25 right pleural 65 95 Drainage 10 left forarm 5 right lower leg 5 Urine 396 890 Other: Voiding Method Indwelling Catheter Indwelling Catheter ABP, PAP, CO, CI - Last Documented Arterial Blood Pressure 88/54 Pulmonary Artery Pressure 20/13 Cardiac Output 6.8 Cardiac Index 3.3 - Exam GENERAL EXAM: Patient is alert and oriented and doesn't appear to be in any acute distress HEENT: Normocephalic. Normal reaction of pupils, equal size, normal range of extraocular motion. No erythema or exudates in the throat. NECK: No masses, no nuchal rigidity. CHEST: No chest wall deformity. LUNGS: Few rales at the bases HEART: S1 and S2 normal with no audible mumurs or gallops. Regular rhythm, femorals equal on both sides.. ABDOMEN: No hepatosplenomegaly, normal bowel sounds, no guarding or rigidity. SKIN: No rashes CENTRAL NERVOUS SYSTEM: No focal deficits. EXTREMITIES: No cyanosis, clubbing or edema. - Labs CBC & Chem 7: 02/08/18 05:24 02/08/18 05:24 Labs: Abnormal Lab Results - Last 24 Hours (Table) 02/07/18 02/07/18 02/07/18 Range/Units 08:17 12:05 17:28 RBC (4.30-5.90) m/uL Hgb (13.0-17.5) gm/dL Hct (39.0-53.0) % Plt Count (150-450) k/uL Lymphocytes # (1.0-4.8) k/uL INR (<1.2) Glucose (74-99) mg/dL POC Glucose (mg/dL) 112 H 103 H 101 H (75-99) mg/dL Calcium (8.4-10.2) mg/dL ALT (21-72) U/L Total Protein (6.3-8.2) g/dL Albumin (3.5-5.0) g/dL 02/07/18 02/08/18 02/08/18 Range/Units 20:48 05:24 05:24 RBC 3.48 L (4.30-5.90) m/uL Hgb 10.2 L (13.0-17.5) gm/dL Hct 31.3 L (39.0-53.0) % Plt Count 100 L (150-450) k/uL Lymphocytes # 0.9 L (1.0-4.8) k/uL INR (<1.2) Glucose 106 H (74-99) mg/dL POC Glucose (mg/dL) 119 H (75-99) mg/dL Calcium 8.3 L (8.4-10.2) mg/dL ALT 17 L (21-72) U/L Total Protein 5.4 L (6.3-8.2) g/dL Albumin 3.2 L (3.5-5.0) g/dL 02/08/18 Range/Units 05:24 RBC (4.30-5.90) m/uL Hgb (13.0-17.5) gm/dL Hct (39.0-53.0) % Plt Count (150-450) k/uL Lymphocytes # (1.0-4.8) k/uL INR 1.2 H (<1.2) Glucose (74-99) mg/dL POC Glucose (mg/dL) (75-99) mg/dL Calcium (8.4-10.2) mg/dL ALT (21-72) U/L Total Protein (6.3-8.2) g/dL Albumin (3.5-5.0) g/dL Assessment and Plan (1) History of coronary artery bypass graft x 3 Current Visit: Yes Status: Acute Code(s): Z95.1 - PRESENCE OF AORTOCORONARY BYPASS GRAFT SNOMED Code(s): 689651409 (2) Hyperlipidemia Current Visit: Yes Status: Acute Code(s): E78.5 - HYPERLIPIDEMIA, UNSPECIFIED SNOMED Code(s): 24393196 (3) Hypertension Current Visit: Yes Status: Acute Code(s): I10 - ESSENTIAL (PRIMARY) HYPERTENSION SNOMED Code(s): 46804695 (4) Paroxysmal atrial fibrillation Current Visit: Yes Status: Acute Code(s): I48.0 - PAROXYSMAL ATRIAL FIBRILLATION SNOMED Code(s): 146430356 Plan: Continue current medical therapy. Increase activity. Incentive spirometry.
[2018-02-08] MEDS: INSULIN ASPART 100 UNIT/ML 1 ML 10 ML VIAL SQ SCH ×4 (08:17→22:39)
[2018-02-08] MEDS: IPRATROPIUM-ALBUTEROL 3 ML NEB INHALATION SCH ×4 (08:26→20:04)
--- NOTE | 2018-02-08 08:37 | P.PN ---
Subjective Progress Note Date: 02/08/18 Principal diagnosis: Coronary artery arterial sclerosis, history of coronary artery bypass grafting surgery in 1996, atherosclerosis of bypass grafts, hypertension, hyperlipidemia , osteoarthritis, history of benign prostatic hypertrophy and preoperative paroxysmal atrial fibrillation. POD #2 redo sternotomy, off-pump CABG 3 with a reverse saphenous vein graft to the posterior descending coronary artery, left radial artery to the left anterior descending coronary artery with a T graft left radial artery to the diagonal coronary artery. Endovascular vein harvest of the right greater saphenous vein. Endovascular left radial artery harvest. Intraoperative transesophageal echocardiogram. Patient is sitting up to the bedside chair, he is in no acute distress. He is complaining of numbness to his right hand pinky finger. He denies any complaints of shortness of breath. He remains afebrile. WBC count this morning is 8.8. He is achieving 1000 mL on his incentive spirometry. Oxygen saturation are 93% on room air. The bedside telemetry showing normal sinus rhythm with first-degree AV block and occasional PACs heart rate 85. Objective - Vital Signs Vital signs: Vital Signs Temp 98.1 F 02/08/18 04:00 Pulse 86 02/08/18 07:00 Resp 21 02/08/18 07:00 BP 130/110 02/08/18 07:00 Pulse Ox 93 L 02/08/18 07:00 Intake & Output 02/07/18 02/08/18 02/08/18 18:59 06:59 18:59 Intake Total 1660.075 770 Output Total 616 1010 Balance 1044.075 -240 Weight 88 kg 87 kg Intake: IV 76 cardiac output 40 pressure bags 36 Intake, IV Titration 984.075 290 Amount ACETAMINOPHEN IV (For NPO 100 100 ) 1,000 mg In Empty Bag 1 bag @ 400 mls/hr IVPB Q6H [facility] Rx#:[id number] ACETAMINOPHEN IV (For NPO 100 100 ) 1,000 mg In Empty Bag 1 bag @ 400 mls/hr IVPB Q6HR [facility] Rx#:[id number] Albumin Human 5% 250 ml 250 In Empty Bag 1 bag @ 250 mls/hr IVPB Q1HR PRN Rx#: [id number] Diltiazem 50 mg In Sodium 35.25 Chloride 0.9% 40 ml @ 5 MG/HR 5 mls/hr IV .Q10H [facility] Rx#:[id number] Lactated Ringers 1,000 ml 280 90 @ 20 mls/hr IV .Q24H [facility] Rx#:[id number] Magnesium Sulfate-D5w Pmx 200 1 gm In Dextrose/Water 1 100ml.bag @ 100 mls/hr IVPB Q1H [facility] Rx#: [id number] Nitroglycerin-D5w Pmx 50 18.825 mg In Dextrose/Water 1 250ml.bag @ 5 MCG/MIN 1.5 mls/hr IV .Q24H [facility] Rx#: [id number] Oral 600 480 Output: Chest Tube Drainage 210 120 left and right 100 mediastinal left and right pleural 30 left pleural 15 25 right pleural 65 95 Drainage 10 left forarm 5 right lower leg 5 Urine 396 890 Other: Voiding Method Indwelling Catheter Indwelling Catheter ABP, PAP, CO, CI - Last Documented Arterial Blood Pressure 88/54 Pulmonary Artery Pressure 20/13 Cardiac Output 6.8 Cardiac Index 3.3 - Constitutional General appearance: Present: cooperative, no acute distress - Respiratory Details: Lung sounds essentially clear to his bilateral upper lobes, few scattered crackles to his bilateral bases. Respirations are symmetrical and nonlabored. Oxygen saturation are 93% on room air. Achieving 1000 mL on his incentive spirometry. Left and right pleural chest tubes in place to low continuous wall suction -20 cm H2O. No air leak is present. Draining thin serosanguineous drainage. Left pleural chest tube drained 25 mL in the last 8 hours, 40 mL in the last 24 hours. Right pleural chest tube drained 90 mL in the last 8 hours, 160 mL in the last 24 hours. - Cardiovascular Details: Regular rhythm and rate. S1 and S2 present, negative for S3, gallop or murmur. Sternum is stable. Bedside telemetry showing normal sinus rhythm with first- degree AV block and occasional PACs heart rate 85. Heart hugger is in place and he is demonstrating appropriate use. Knee-high SAMIA hose and sequential compression devices in place to his bilateral lower extremities. +1 edema to his bilateral lower extremities. - Gastrointestinal Gastrointestinal Comment(s): Abdomen is soft, nontender and nondistended. Hypoactive bowel sounds present all 4 abdominal quadrants. Tolerating oral intake. Passing flatus. - Genitourinary Genitourinary Comment(s): Reid catheter for accurate I&O. Draining clear yellow urine, 615 mL output in the last 8 hours. - Integumentary Integumentary Comment(s): Skin is warm and dry. No clubbing or cyanosis present. Midline sternal incision clean dry and approximated. No drainage or redness present. Gauze dressing clean, dry and intact. Left radial endovascular harvest sites clean, dry and approximated. No drainage or redness present. Small ecchymotic area to his left forearm. Right lower extremity EVH site clean, dry and approximated. No drainage or redness present. - Neurologic Neurologic: Present: CNII-XII intact - Musculoskeletal Musculoskeletal: Present: gait normal, generalized weakness, strength equal bilaterally - Psychiatric Psychiatric: Present: A&O x's 3, appropriate affect, intact judgment & insight - Allied health notes Allied health notes reviewed: nursing - Labs CBC & Chem 7: 02/08/18 05:24 02/08/18 05:24 Labs: Abnormal Lab Results - Last 24 Hours (Table) 02/07/18 02/07/18 02/07/18 Range/Units 08:17 12:05 17:28 RBC (4.30-5.90) m/uL Hgb (13.0-17.5) gm/dL Hct (39.0-53.0) % Plt Count (150-450) k/uL Lymphocytes # (1.0-4.8) k/uL INR (<1.2) Glucose (74-99) mg/dL POC Glucose (mg/dL) 112 H 103 H 101 H (75-99) mg/dL Calcium (8.4-10.2) mg/dL ALT (21-72) U/L Total Protein (6.3-8.2) g/dL Albumin (3.5-5.0) g/dL 02/07/18 02/08/18 02/08/18 Range/Units 20:48 05:24 05:24 RBC 3.48 L (4.30-5.90) m/uL Hgb 10.2 L (13.0-17.5) gm/dL Hct 31.3 L (39.0-53.0) % Plt Count 100 L (150-450) k/uL Lymphocytes # 0.9 L (1.0-4.8) k/uL INR (<1.2) Glucose 106 H (74-99) mg/dL POC Glucose (mg/dL) 119 H (75-99) mg/dL Calcium 8.3 L (8.4-10.2) mg/dL ALT 17 L (21-72) U/L Total Protein 5.4 L (6.3-8.2) g/dL Albumin 3.2 L (3.5-5.0) g/dL 02/08/18 Range/Units 05:24 RBC (4.30-5.90) m/uL Hgb (13.0-17.5) gm/dL Hct (39.0-53.0) % Plt Count (150-450) k/uL Lymphocytes # (1.0-4.8) k/uL INR 1.2 H (<1.2) Glucose (74-99) mg/dL POC Glucose (mg/dL) (75-99) mg/dL Calcium (8.4-10.2) mg/dL ALT (21-72) U/L Total Protein (6.3-8.2) g/dL Albumin (3.5-5.0) g/dL - Imaging and Cardiology Chest x-ray: report reviewed, image reviewed Assessment and Plan (1) Coronary artery disease Current Visit: Yes Status: Acute Code(s): I25.10 - ATHSCL HEART DISEASE OF [place] CORONARY ARTERY W/O ANG PCTRS SNOMED Code(s): 51505042 (2) Hypertension Current Visit: Yes Status: Acute Code(s): I10 - ESSENTIAL (PRIMARY) HYPERTENSION SNOMED Code(s): 23311887 (3) Hyperlipidemia Current Visit: Yes Status: Acute Code(s): E78.5 - HYPERLIPIDEMIA, UNSPECIFIED SNOMED Code(s): 70176796 (4) BPH (benign prostatic hyperplasia) Current Visit: Yes Status: Acute Code(s): N40.0 - BENIGN PROSTATIC HYPERPLASIA WITHOUT LOWER URINRY TRACT SYMP SNOMED Code(s): 815229977 (5) Osteoarthritis Current Visit: Yes Status: Acute Code(s): M19.90 - UNSPECIFIED OSTEOARTHRITIS, UNSPECIFIED SITE SNOMED Code(s): 000340879 (6) History of coronary artery bypass graft x 3 Current Visit: Yes Status: Acute Code(s): Z95.1 - PRESENCE OF AORTOCORONARY BYPASS GRAFT SNOMED Code(s): 509221005 (7) Paroxysmal atrial fibrillation Current Visit: Yes Status: Acute Code(s): I48.0 - PAROXYSMAL ATRIAL FIBRILLATION SNOMED Code(s): 799296940 Plan: 1. Continue aspirin, statin, Plavix and beta mateo. We will increase his metoprolol tartrate 25 mg by mouth twice a day. 2. Continue Norvasc 5 mg by mouth daily. Do not discontinue Norvasc, in place for radial artery spasm prevention. 3. Encourage use of his incentive spirometry every hour while awake. 4. Bronchodilator and pulmonary management recommendations per Dr. Liang. 5. Will monitor daily labs and x-rays. 6. GI prophylaxis with Protonix, DVT prophylaxis with subcu heparin and SCDs. 7. Insulin management per primary care service. 8. Increased activity as tolerated. PT/OT/cardiac rehab following. 9. Discontinue right and left pleural chest tubes. 10. Lasix 20 mg IV 1 now. 11. Remove Reid catheter. 12. We will transfer the patient to [address] [place] [address] cardiac stepdown unit today. 13. More recommendations to follow based on patient's clinical course. Time with Patient: Greater than 30
--- NOTE | 2018-02-08 10:13 | P.PN ---
Subjective Progress Note Date: 02/08/18 Principal diagnosis: Coronary artery disease status post re-do coronary artery bypass grafting. This is an 82-year-old male who is status post redo bypass grafting. The surgery was done by Dr. Mckeon. He's postop day #0. He had a right renal artery to LAD bypass, left radial artery to diagonal coronary artery, and SVG to PDA bypass. The patient is currently back in the intensive care unit. He is on the ventilator on the SIMV mode, rate 12, tidal volume 600, FiO2 100%, and PEEP of 5. Blood gases are currently pending. The patient's currently on lactated Ringer's at 50 mL an hour Cardizem drip at 5 mg an hour propofol at 25 mics per kilogram per minute and nitroglycerin at 5 mcg/m. The patient has some mild valvular heart disease is wall. The patient was recently having some exertional anginal symptoms while hiking [place]. This is increased since that time. For that reason, he was seen by cardiology and had a catheterization and was sent to see Dr. Mckeon. His history is positive for previous bypass grafting, hernia repair, cholecystectomy, hyperlipidemia, hypertension, arthritis, and CAD. The patient is seen today 02/07/2018 in follow-up in the intensive care unit. He was successfully extubated in approximately 4 hours yesterday. He is currently sitting up in a chair at the bedside. He is awake and alert in no acute distress. Chest x-ray reveals increasing left basilar opacity and obscuration of the left hemidiaphragm secondary to atelectasis/effusion. Chest tubes remain in place. His maintaining good O2 saturations in the 90s on 2 L/m per nasal cannula. He is pulling approximately 800 ML's on the incentive spirometer. His a lactated Ringer's at 50 MLS per hour. Insulin drip at 0.5 units per hour. Cleviprex at 2 mg per hour. Cardiac output 6.8, cardiac index 3.3. PA pressure 20/13, CVP 4. He has not required any blood replacement. Current hemoglobin 11.0. White count 9.6. Creatinine 0.79. The patient is seen again today 02/08/2018 in follow-up in the intensive care unit. He is awake and alert in no acute distress. He is doing very well. Chest x-ray reveals persistent low lung volumes and cardiomegaly with mild vascular congestion and small left pleural effusion and some basilar atelectasis. Chest tubes were removed this morning. He is maintaining O2 saturation in the low 90s on room air. He is working well with the incentive spirometer. He's been afebrile. Hemodynamically stable. White count 8.8. Hemoglobin 10.2. Creatinine 0.74. Objective - Vital Signs Vital signs: Vital Signs Temp 98.1 F 02/08/18 08:00 Pulse 78 02/08/18 09:00 Resp 12 02/08/18 09:00 BP 141/71 02/08/18 09:00 Pulse Ox 93 L 02/08/18 09:00 Intake & Output 02/07/18 02/08/18 02/08/18 18:59 06:59 18:59 Intake Total 1660.075 770 360 Output Total 616 1010 765 Balance 1044.075 -240 -405 Weight 88 kg 87 kg Intake: IV 76 cardiac output 40 pressure bags 36 Intake, IV Titration 984.075 290 Amount ACETAMINOPHEN IV (For NPO 100 100 ) 1,000 mg In Empty Bag 1 bag @ 400 mls/hr IVPB Q6H [facility] Rx#:[id number] ACETAMINOPHEN IV (For NPO 100 100 ) 1,000 mg In Empty Bag 1 bag @ 400 mls/hr IVPB Q6HR [facility] Rx#:[id number] Albumin Human 5% 250 ml 250 In Empty Bag 1 bag @ 250 mls/hr IVPB Q1HR [facility] Rx#: [id number] Diltiazem 50 mg In Sodium 35.25 Chloride 0.9% 40 ml @ 5 MG/HR 5 mls/hr IV .Q10H [facility] Rx#:[id number] Lactated Ringers 1,000 ml 280 90 @ 20 mls/hr IV .Q24H [facility] Rx#:[id number] Magnesium Sulfate-D5w Pmx 200 1 gm In Dextrose/Water 1 100ml.bag @ 100 mls/hr IVPB Q1H [facility] Rx#: [id number] Nitroglycerin-D5w Pmx 50 18.825 mg In Dextrose/Water 1 250ml.bag @ 5 MCG/MIN 1.5 mls/hr IV .Q24H [facility] Rx#: [id number] Oral 600 480 360 Output: Chest Tube Drainage 210 120 90 left and right 100 mediastinal left and right pleural 30 left pleural 15 25 60 right pleural 65 95 30 Drainage 10 left forarm 5 right lower leg 5 Urine 396 890 675 Other: Voiding Method Indwelling Catheter Indwelling Catheter Indwelling Catheter ABP, PAP, CO, CI - Last Documented Arterial Blood Pressure 88/54 Pulmonary Artery Pressure 20/13 Cardiac Output 6.8 Cardiac Index 3.3 - Exam GENERAL EXAM: Alert, active, comfortable in no apparent distress. HEAD: Normocephalic. EYES: Normal reaction of pupils, equal size. NOSE: Clear with pink turbinates. THROAT: No erythema or exudates. NECK: No masses, no JVD. CHEST: Dressing dry and intact, heart hugger in place. LUNGS: Equal air entry with no crackles, wheeze, rhonchi or dullness. CVS: S1 and S2 normal with no audible murmur, regular rhythm. ABDOMEN: No hepatosplenomegaly, normal bowel sounds, no guarding or rigidity. SPINE: No scoliosis or deformity SKIN: No rashes CENTRAL NERVOUS SYSTEM: No focal deficits, tone is normal in all 4 extremities. EXTREMITIES: Right brachial arterial line in place. Sequential compression devices are in place. Peripheral pulses are intact. - Labs CBC & Chem 7: 02/08/18 05:24 02/08/18 05:24 Labs: Abnormal Lab Results - Last 24 Hours (Table) 02/07/18 02/07/18 02/07/18 Range/Units 12:05 17:28 20:48 RBC (4.30-5.90) m/uL Hgb (13.0-17.5) gm/dL Hct (39.0-53.0) % Plt Count (150-450) k/uL Lymphocytes # (1.0-4.8) k/uL INR (<1.2) Glucose (74-99) mg/dL POC Glucose (mg/dL) 103 H 101 H 119 H (75-99) mg/dL Calcium (8.4-10.2) mg/dL ALT (21-72) U/L Total Protein (6.3-8.2) g/dL Albumin (3.5-5.0) g/dL 02/08/18 02/08/18 02/08/18 Range/Units 05:24 05:24 05:24 RBC 3.48 L (4.30-5.90) m/uL Hgb 10.2 L (13.0-17.5) gm/dL Hct 31.3 L (39.0-53.0) % Plt Count 100 L (150-450) k/uL Lymphocytes # 0.9 L (1.0-4.8) k/uL INR 1.2 H (<1.2) Glucose 106 H (74-99) mg/dL POC Glucose (mg/dL) (75-99) mg/dL Calcium 8.3 L (8.4-10.2) mg/dL ALT 17 L (21-72) U/L Total Protein 5.4 L (6.3-8.2) g/dL Albumin 3.2 L (3.5-5.0) g/dL Assessment and Plan Assessment: Assessment Postop day #2, status post redo three-vessel bypass grafting Routine postoperative ventilatory management. Successfully extubated yesterday. On room air. History of hypertension History of hyperlipidemia Previous history of bypass grafting, 1996 History of coronary artery disease History of DJD Plan: The patient was seen and evaluated by Dr. Liang. Chest x-ray and labs were reviewed. He did receive 20 mg IV push Lasix today. The patient is working well with the incentive spirometer. Maintaining good O2 saturations in the 90s on room air. We will increase his activity as tolerated. He'll be transferred out of the ICU today. We'll continue to follow and make further recommendations based on his clinical status. I, the cosigning physician, performed a history & physical examination of the patient. Lungs sounds with crackles in the bilateral posterior bases. Maintaining good O2 saturations in the 90s on room air. I discussed the assessment and plan of care with my nurse practitioner, Waleska Frank. I attest to the above note as dictated by her.
[2018-02-08] MEDS: AMIODARONE 200 MG TAB PO SCH ×2 (11:20→21:09)
[2018-02-08 12:21] LABS: Glucose,Whole Blood 102 mg/dL (75-99)
[2018-02-08] MEDS ORDERED: ACETAMINOPHEN TAB 500 MG TAB PO PRN (18:00)
[2018-02-08] MEDS: SENNOSIDES-DOCUSATE SODIUM 1 EACH TAB PO SCH (21:09)
[2018-02-08 21:44] LABS: Glucose,Whole Blood 120 mg/dL (75-99)
--- NOTE | 2018-02-08 23:59 | PN ---
PROGRESS NOTE DATE OF SERVICE: 02/08/2018. PRESENTING COMPLAINT: Coronary artery bypass. INTERVAL HISTORY: Patient is status post coronary artery bypass, doing well today. Did tolerate his diet. A little bit tired. Remains in sinus rhythm. Did walk a bit. Reid was discontinued. Has not made any urine. REVIEW OF SYSTEMS: Done for constitutional, cardiovascular, GI, pulmonary and relevant findings as above. CURRENT MEDICATIONS: Reviewed. PHYSICAL EXAMINATION: VITAL SIGNS: Temperature 98.4, pulse 82, respiration 28, blood pressure 130/73, pulse ox 97% on 2 L. GENERAL APPEARANCE: Sitting up in a chair, comfortable. EYES: Pupils equal. Conjunctivae normal. NECK: JVD not raised. Mass not palpable. RESPIRATORY effort increased. LUNGS: Decreased breath sounds. CARDIOVASCULAR: Heart sounds muffled. No edema. ABDOMEN: Soft, nontender. Liver and spleen not palpable. PSYCHIATRY: Alert and oriented x3. Mood and affect normal. INVESTIGATIONS: White count 8.8, hemoglobin 10.2, platelets 100, potassium 4.1. ASSESSMENT: 1. Coronary artery bypass, redo. 2. Paroxysmal atrial fibrillation currently in sinus rhythm. 3. Coronary artery disease. 4. Hyperlipidemia. 5. Essential hypertension. 6. Primary osteoarthritis of the knees. 7. Acute postoperative blood loss anemia expected from surgery. 8. Dilutional thrombocytopenia. PLAN: Continue current medication and treatment plan. Patient is started to do better. Care was discussed. REXL / HARSHADN: [id number] /
[2018-02-09] MEDS: HEPARIN SODIUM,PORCINE 5,000 UNIT/ML 1 ML VIAL SQ SCH ×3 (06:00→21:39)
--- NOTE | 2018-02-09 07:59 | XR ---
EXAMINATION TYPE: XR chest 1V portable DATE OF EXAM: 02/09/2018 COMPARISON: 02/08/2018 HISTORY: Status post cardiac surgery Follow-up. TECHNIQUE: Single frontal view of the chest is obtained. FINDINGS: Right-sided thoracostomy tube has been removed in the interim. No remaining pneumothorax i s appreciated. Bibasilar opacities remain with obscuration of the left hemidiaphragm and low lung vol umes. Post CABG changes the chest again are seen with mild cardiomegaly. Diffuse osseous demineraliza tion is also mild. IMPRESSION: Interval removal of the thoracostomy tube with no residual pneumothorax. Stable bibasila r airspace disease and probable left small pleural effusion.
[2018-02-09 08:10] LABS: Basophils % (A) 0 %; Eosinophils # (A) 0.3 k/uL (0-0.7); Eosinophils % (A) 3 %; HCT 31.7 % (39.0-53.0); HGB 10.3 gm/dL (13.0-17.5); Lymphocytes % (A) 12 %; MCH 29.5 pg (25.0-35.0); MCHC 32.6 g/dL (31.0-37.0); MCV 90.4 fL (80.0-100.0); Mean Platelet Volume 8.4; Monocytes # (A) 0.5 k/uL (0-1.0); Monocytes % (A) 6 %; Neutrophils # (A) 6.6 k/uL (1.3-7.7); Neutrophils % (A) 78 %; Platelet Count 118 k/uL (150-450); RBC 3.51 m/uL (4.30-5.90); RDW 13.9 % (11.5-15.5); WBC 8.4 k/uL (3.8-10.6)
[2018-02-09] MEDS: IPRATROPIUM-ALBUTEROL 3 ML NEB INHALATION SCH ×4 (08:18→20:14)
[2018-02-09 08:28] LABS: Anion Gap 7 mmol/L; Blood Urea Nitrogen 18 mg/dL (9-20); Calcium 8.4 mg/dL (8.4-10.2); Carbon Dioxide 26 mmol/L (22-30); Chloride 104 mmol/L (98-107); Glucose 114 mg/dL (74-99); Potassium 4.1 mmol/L (3.5-5.1); Sodium 137 mmol/L (137-145)
[2018-02-09] MEDS: INSULIN ASPART 100 UNIT/ML 1 ML 10 ML VIAL SQ SCH ×4 (08:39→21:41)
[2018-02-09] MEDS ORDERED: FUROSEMIDE 10 MG/ML 2 ML VIAL IV ONE (08:49)
[2018-02-09] MEDS: PANTOPRAZOLE 40 MG TABLET PO SCH (09:20)
[2018-02-09] MEDS: amLODIPine 5 MG TAB PO SCH (09:20)
[2018-02-09] MEDS: METOPROLOL TARTRATE 25 MG TAB PO SCH ×2 (09:21→21:43)
[2018-02-09] MEDS: ATORVASTATIN 40 MG TAB PO SCH (09:21)
[2018-02-09] MEDS: AMIODARONE 200 MG TAB PO SCH ×2 (09:21→21:40)
[2018-02-09] MEDS: ASPIRIN 325 MG TAB PO SCH (09:22)
[2018-02-09] MEDS: CLOPIDOGREL 75 MG TAB PO SCH (09:22)
--- NOTE | 2018-02-09 10:37 | P.PN ---
Subjective Progress Note Date: 02/09/18 Principal diagnosis: Coronary artery disease status post redo coronary artery bypass grafting. This is an 82-year-old male who is status post redo bypass grafting. The surgery was done by Dr. Mckeon. He's postop day #0. He had a right renal artery to LAD bypass, left radial artery to diagonal coronary artery, and SVG to PDA bypass. The patient is currently back in the intensive care unit. He is on the ventilator on the SIMV mode, rate 12, tidal volume 600, FiO2 100%, and PEEP of 5. Blood gases are currently pending. The patient's currently on lactated Ringer's at 50 mL an hour Cardizem drip at 5 mg an hour propofol at 25 mics per kilogram per minute and nitroglycerin at 5 mcg/m. The patient has some mild valvular heart disease is wall. The patient was recently having some exertional anginal symptoms while hiking [employer]. This is increased since that time. For that reason, he was seen by cardiology and had a catheterization and was sent to see Dr. Mckeon. His history is positive for previous bypass grafting, hernia repair, cholecystectomy, hyperlipidemia, hypertension, arthritis, and CAD. The patient is seen today 02/07/2018 in follow-up in the intensive care unit. He was successfully extubated in approximately 4 hours yesterday. He is currently sitting up in a chair at the bedside. He is awake and alert in no acute distress. Chest x-ray reveals increasing left basilar opacity and obscuration of the left hemidiaphragm secondary to atelectasis/effusion. Chest tubes remain in place. His maintaining good O2 saturations in the 90s on 2 L/m per nasal cannula. He is pulling approximately 800 ML's on the incentive spirometer. His a lactated Ringer's at 50 MLS per hour. Insulin drip at 0.5 units per hour. Cleviprex at 2 mg per hour. Cardiac output 6.8, cardiac index 3.3. PA pressure 20/13, CVP 4. He has not required any blood replacement. Current hemoglobin 11.0. White count 9.6. Creatinine 0.79. The patient is seen again today 02/08/2018 in follow-up in the intensive care unit. He is awake and alert in no acute distress. He is doing very well. Chest x-ray reveals persistent low lung volumes and cardiomegaly with mild vascular congestion and small left pleural effusion and some basilar atelectasis. Chest tubes were removed this morning. He is maintaining O2 saturation in the low 90s on room air. He is working well with the incentive spirometer. He's been afebrile. Hemodynamically stable. White count 8.8. Hemoglobin 10.2. Creatinine 0.74. On 02/09/2018 patient seen in follow-up in the intensive care unit. He is awake and alert, oriented 3, in no acute distress, sitting up in the recliner, on room air. Lung sounds are positive for a few bibasilar crackles, today's chest x-ray has been reviewed by Dr. Liang, and showed stable bibasilar airspace disease and probable left small pleural effusion. Chest tubes have been discontinued. She is compliant with his incentive spirometry. Patient has ambulated, elevated activity well, vital signs are stable. No acute events overnight, midsternal incision is clean dry and intact, stable. Today's labs have been reviewed, WBCs 8.4, hemoglobin is 10.3, electrolytes and renal profile are all within normal limits. Objective - Vital Signs Vital signs: Vital Signs Temp 98.6 F 02/09/18 04:00 Pulse 75 02/09/18 08:30 Resp 14 02/09/18 07:00 BP 130/72 02/09/18 07:00 Pulse Ox 87 L 02/09/18 07:00 Intake & Output 02/08/18 02/09/18 02/09/18 18:59 06:59 18:59 Intake Total 800 580 Output Total 2320 420 Balance -1520 160 Intake: Intake, IV Titration 100 Amount ACETAMINOPHEN IV (For NPO 100 ) 1,000 mg In Empty Bag 1 bag @ 400 mls/hr IVPB Q6HR [facility] Rx#:[id number] Oral 700 580 Output: Chest Tube Drainage 90 left pleural 60 right pleural 30 Urine 2230 420 Other: Voiding Method Indwelling Catheter Indwelling Catheter # Voids 1 1 ABP, PAP, CO, CI - Last Documented Arterial Blood Pressure 88/54 Pulmonary Artery Pressure 20/13 Cardiac Output 6.8 Cardiac Index 3.3 - Exam GENERAL EXAM: Alert, active, comfortable in no apparent distress. Room air HEAD: Normocephalic. EYES: Normal reaction of pupils, equal size. NOSE: Clear with pink turbinates. THROAT: No erythema or exudates. NECK: No masses, no JVD. CHEST: Dressing dry and intact, heart hugger in place. LUNGS: Equal air entry with no crackles, wheeze, rhonchi or dullness. CVS: S1 and S2 normal with no audible murmur, regular rhythm. ABDOMEN: No hepatosplenomegaly, normal bowel sounds, no guarding or rigidity. SPINE: No scoliosis or deformity SKIN: No rashes CENTRAL NERVOUS SYSTEM: No focal deficits, tone is normal in all 4 extremities. EXTREMITIES: Right brachial arterial line in place. Sequential compression devices are in place. Peripheral pulses are intact. - Labs CBC & Chem 7: 02/09/18 07:53 02/09/18 07:53 Labs: Abnormal Lab Results - Last 24 Hours (Table) 02/08/18 02/08/18 02/09/18 Range/Units 12: 21:42 07:53 RBC 3.51 L (4.30-5.90) m/uL Hgb 10.3 L (13.0-17.5) gm/dL Hct 31.7 L (39.0-53.0) % Plt Count 118 L (150-450) k/uL Glucose (74-99) mg/dL POC Glucose (mg/dL) 102 H 120 H (75-99) mg/dL 02/09/18 Range/Units 07:53 RBC (4.30-5.90) m/uL Hgb (13.0-17.5) gm/dL Hct (39.0-53.0) % Plt Count (150-450) k/uL Glucose 114 H (74-99) mg/dL POC Glucose (mg/dL) (75-99) mg/dL Assessment and Plan Plan: Postop day #3, status post redo three-vessel bypass grafting Routine postoperative ventilatory management. Successfully extubated yesterday. On room air. History of hypertension History of hyperlipidemia Previous history of bypass grafting, 1996 History of coronary artery disease History of DJD Plan: Patient is doing extremely well, on room air, he is working on his incentive spirometry. He is tolerating ambulation, chest tubes are out, Reid has been discontinued, patient is voiding, vital signs remain stable, today's chest x- ray and labs have been reviewed by Dr. Dr. Liang, and showed some basilar atelectasis and small left pleural effusion. No acute events overnight, continue pain control, and encouraging deep breathing and coughing, we'll continue to follow I performed a history & physical examination of the patient and discussed their management with my nurse practitioner, Joyce Guerra. I reviewed the nurse practitioner's note and agree with the documented findings and plan of care. Lung sounds are positive for bibasilar crackles. The findings and the impression was discussed with the patient. I attest to the documentation by the nurse practitioner. Time with Patient: Greater than 30
[2018-02-09 12:54] LABS: Glucose,Whole Blood 107 mg/dL (75-99)
[2018-02-09 17:27] LABS: Glucose,Whole Blood 124 mg/dL (75-99)
--- NOTE | 2018-02-09 18:39 | PN ---
PROGRESS NOTE DATE OF SERVICE: 02/09/2018 PRESENTING COMPLAINT: Coronary artery bypass. INTERVAL HISTORY: Patient is status post coronary artery bypass, doing well, tolerating a diet. The patient's and 3 daughters are present. The patient did walk in the hallway, making good urine. Breathing is improving. REVIEW OF SYSTEMS: Done for constitutional, cardiovascular, GI, pulmonary; relevant findings as above. CURRENT MEDICATIONS: Reviewed. EXAMINATION: VITAL SIGNS: Afebrile, pulse 56, respiration 25, blood pressure 127/63, pulse ox 98% on room air. GENERAL: Sitting in a chair, comfortable. EYES: Pupils are equal. Conjunctivae normal. NECK: JVD unable to assess. Mass not palpable. RESPIRATORY: Effort normal. LUNGS: Few basal crackles. CARDIOVASCULAR: Heart sounds muffled. No edema. ABDOMEN: Soft, nontender. Liver and spleen not palpable. PSYCHIATRY: Alert and oriented x3. Mood and affect normal. INVESTIGATIONS: White count 8.4, hemoglobin 12.3, platelets 118, potassium 4.1. ASSESSMENT: 1. Coronary artery bypass redo. 2. Paroxysmal atrial fibrillation currently in sinus rhythm. 3. Coronary artery bypass. 4. Hyperlipidemia. 5. Essential hypertension. 6. Primary osteoarthritis of the knees. 7. Acute postoperative blood loss anemia expected from surgery. 8. Dilutional thrombocytopenia. 9. Possible basilar atelectasis. PLAN: Care was discussed with the patient and family at bedside. Clinically patient doing much better. I reminded the patient to use the inspiratory spirometry. Continue to ambulate. MMSHAREE / HARSHADN: [id number] /
[2018-02-09 21:26] LABS: Glucose,Whole Blood 143 mg/dL (75-99)
[2018-02-09] MEDS: SENNOSIDES-DOCUSATE SODIUM 1 EACH TAB PO SCH (21:41)
--- NOTE | 2018-02-10 01:50 | CONS ---
CONSULTATION Mr. Pemberton is an 82-year-old gentleman status post redo bypass grafting. The patient's clinical panel and lab tests are reviewed. The patient is in no respiratory distress. Patient is sitting up in the. Chest x-ray today shows bilateral airspace disease and left small pleural effusion. Blood pressure is 130/72 mmHg, heart rate is 75 per minute, respiratory rate is 14. First and second heart sounds are normal. Lungs reveal a few scattered wheezes. The patient's hemoglobin is 10.3, creatinine is 0.8. ASSESSMENT AND PLAN: This patient is status post coronary artery bypass surgery. The patient is hemodynamically stable. No dysrhythmias are noted. We will continue the patient on current medications. MMODL / IJN: [id number] /
[2018-02-10] MEDS: HEPARIN SODIUM,PORCINE 5,000 UNIT/ML 1 ML VIAL SQ SCH (04:56)
[2018-02-10 05:18] LABS: Basophils # (A) 0.1 k/uL (0-0.2); Basophils % (A) 1 %; Eosinophils # (A) 0.4 k/uL (0-0.7); Eosinophils % (A) 5 %; HCT 29.9 % (39.0-53.0); HGB 9.8 gm/dL (13.0-17.5); Lymphocytes # (A) 1.4 k/uL (1.0-4.8); Lymphocytes % (A) 15 %; MCH 29.5 pg (25.0-35.0); MCHC 32.8 g/dL (31.0-37.0); MCV 89.9 fL (80.0-100.0); Mean Platelet Volume 7.7; Monocytes # (A) 0.8 k/uL (0-1.0); Monocytes % (A) 8 %; Neutrophils # (A) 6.4 k/uL (1.3-7.7); Neutrophils % (A) 69 %; Platelet Count 147 k/uL (150-450); RBC 3.32 m/uL (4.30-5.90); RDW 14.1 % (11.5-15.5); WBC 9.2 k/uL (3.8-10.6)
[2018-02-10 05:26] LABS: Anion Gap 6 mmol/L; Blood Urea Nitrogen 23 mg/dL (9-20); Calcium 8.2 mg/dL (8.4-10.2); Carbon Dioxide 27 mmol/L (22-30); Chloride 105 mmol/L (98-107); Glucose 105 mg/dL (74-99); Potassium 4.2 mmol/L (3.5-5.1); Sodium 138 mmol/L (137-145)
[2018-02-10 07:07] LABS: Glucose,Whole Blood 110 mg/dL (75-99)
[2018-02-10] MEDS: AMIODARONE 200 MG TAB PO SCH (07:13)
[2018-02-10] MEDS: METOPROLOL TARTRATE 25 MG TAB PO SCH (07:13)
--- NOTE | 2018-02-10 07:19 | P.PN ---
Subjective Progress Note Date: 02/09/18 Principal diagnosis: Coronary artery arterial sclerosis, history of coronary artery bypass grafting surgery in 1996, atherosclerosis of bypass grafts, hypertension, hyperlipidemia , osteoarthritis, history of benign prostatic hypertrophy and preoperative paroxysmal atrial fibrillation. POD #3 redo sternotomy, off-pump CABG 3 with a reverse saphenous vein graft to the posterior descending coronary artery, left radial artery to the left anterior descending coronary artery with a T graft left radial artery to the diagonal coronary artery. Endovascular vein harvest of the right greater saphenous vein. Endovascular left radial artery harvest. Intraoperative transesophageal echocardiogram. Patient is sitting up to the bedside chair, he is in no acute distress. He is complaining of numbness to his right hand pinky finger. He is complaining of some incisional pain 3 out of 10 on the pain scale 2 his midline sternal incision. Denies any complaints of shortness of breath. Currently he is on room air oxygen saturation is 93%. Achieving 1000 mL on his incentive spirometry. He reports that he walked 4 times in the intensive care unit hallway yesterday without difficulty. Objective - Vital Signs Vital signs: Vital Signs Temp 98.6 F 02/09/18 04:00 Pulse 75 02/09/18 08:30 Resp 14 02/09/18 07:00 BP 130/72 02/09/18 07:00 Pulse Ox 87 L 02/09/18 07:00 Intake & Output 02/08/18 02/09/18 02/09/18 18:59 06:59 18:59 Intake Total 800 580 Output Total 2320 420 Balance -1520 160 Intake: Intake, IV Titration 100 Amount ACETAMINOPHEN IV (For NPO 100 ) 1,000 mg In Empty Bag 1 bag @ 400 mls/hr IVPB Q6HR [facility] Rx#:[id number] Oral 700 580 Output: Chest Tube Drainage 90 left pleural 60 right pleural 30 Urine 2230 420 Other: Voiding Method Indwelling Catheter Indwelling Catheter # Voids 1 1 ABP, PAP, CO, CI - Last Documented Arterial Blood Pressure 88/54 Pulmonary Artery Pressure 20/13 Cardiac Output 6.8 Cardiac Index 3.3 - Constitutional General appearance: Present: cooperative, no acute distress - Respiratory Details: Lung sounds essentially clear throughout. Respirations are symmetrical and nonlabored. Oxygen saturation are 93% on room air. He is achieving 1000 mL on his incentive spirometry. - Cardiovascular Details: Regular rhythm and rate. S1 and S2 present, negative for S3, gallop or murmur. Sternum is stable. Bedside telemetry showing normal sinus rhythm heart rate 75. Heart hugger is in place and he is demonstrating appropriate use. Knee- high SAMIA hose and sequential compression devices in place to his bilateral lower extremities. - Gastrointestinal Gastrointestinal Comment(s): Abdomen is soft, nontender and nondistended. Active bowel sounds all 4 abdominal quadrants. No guarding or rigidity. Tolerating oral intake. Passing flatus. - Genitourinary Genitourinary Comment(s): Voiding clear yellow urine. 575 mL output in the last 8 hours. - Integumentary Integumentary Comment(s): Skin is warm and dry. No clubbing or cyanosis present. Midline sternal incision is clean, dry and approximated. No drainage or redness present. Right leg EVH site clean, dry and approximated. No drainage or redness present. Left forearm radial artery harvest sites clean, dry and approximated. No drainage or redness present. He is a small soft palpate ecchymotic area to his left forearm. - Neurologic Neurologic: Present: CNII-XII intact - Musculoskeletal Musculoskeletal: Present: gait normal, strength equal bilaterally - Psychiatric Psychiatric: Present: A&O x's 3, appropriate affect, intact judgment & insight - Labs CBC & Chem 7: 02/09/18 07:53 02/09/18 07:53 Labs: Abnormal Lab Results - Last 24 Hours (Table) 02/08/18 02/08/18 02/09/18 Range/Units : 21:42 07:53 RBC 3.51 L (4.30-5.90) m/uL Hgb 10.3 L (13.0-17.5) gm/dL Hct 31.7 L (39.0-53.0) % Plt Count 118 L (150-450) k/uL Glucose (74-99) mg/dL POC Glucose (mg/dL) 102 H 120 H (75-99) mg/dL 02/09/18 Range/Units 07:53 RBC (4.30-5.90) m/uL Hgb (13.0-17.5) gm/dL Hct (39.0-53.0) % Plt Count (150-450) k/uL Glucose 114 H (74-99) mg/dL POC Glucose (mg/dL) (75-99) mg/dL - Imaging and Cardiology Chest x-ray: report reviewed, image reviewed Assessment and Plan (1) Coronary artery disease Current Visit: Yes Status: Acute Code(s): I25.10 - ATHSCL HEART DISEASE OF [place] CORONARY ARTERY W/O ANG PCTRS SNOMED Code(s): 41982456 (2) Hypertension Current Visit: Yes Status: Acute Code(s): I10 - ESSENTIAL (PRIMARY) HYPERTENSION SNOMED Code(s): 45396464 (3) Hyperlipidemia Current Visit: Yes Status: Acute Code(s): E78.5 - HYPERLIPIDEMIA, UNSPECIFIED SNOMED Code(s): 68361005 (4) BPH (benign prostatic hyperplasia) Current Visit: Yes Status: Acute Code(s): N40.0 - BENIGN PROSTATIC HYPERPLASIA WITHOUT LOWER URINRY TRACT SYMP SNOMED Code(s): 652923091 (5) Osteoarthritis Current Visit: Yes Status: Acute Code(s): M19.90 - UNSPECIFIED OSTEOARTHRITIS, UNSPECIFIED SITE SNOMED Code(s): 165663857 (6) History of coronary artery bypass graft x 3 Current Visit: Yes Status: Acute Code(s): Z95.1 - PRESENCE OF AORTOCORONARY BYPASS GRAFT SNOMED Code(s): 825150056 (7) Paroxysmal atrial fibrillation Current Visit: Yes Status: Acute Code(s): I48.0 - PAROXYSMAL ATRIAL FIBRILLATION SNOMED Code(s): 410926343 Plan: 1. Continue aspirin, statin, Plavix and beta mateo. We will increase his beta mateo as tolerated. 2. Continue Norvasc 5 mg by mouth daily. Do not discontinue Norvasc, in place for radial artery spasm prevention. 3. Encourage use of his incentive spirometry every hour while awake. 4. Bronchodilator and pulmonary management recommendations per Dr. Liang. 5. Will monitor daily labs and x-rays. 6. GI prophylaxis with Protonix, DVT prophylaxis with subcu heparin and SCDs. 7. Insulin management per primary care service. 8. Increased activity as tolerated. PT/OT/cardiac rehab following. 9. Lasix 20 mg IV 1 now. 10. Transfer the patient to [address] [place] [address] cardiac stepdown unit when bed available. 11. More recommendations to follow based on patient's clinical course. Anticipate discharge home within the next 24 hours. Time with Patient: Greater than 30
--- NOTE | 2018-02-10 07:34 | XR ---
EXAMINATION TYPE: XR chest 2V DATE OF EXAM: 02/10/2018 COMPARISON: 118 HISTORY: Shortness of breath TECHNIQUE: Frontal and lateral views of the chest are obtained. FINDINGS: Scattered senescent parenchymal changes noted. Hyperinflation compatible with COPD. Patchy basilar infiltrates persist. Heart size is stable. Mediastinal structures are stable and grossly unremarkable. Interposition hepatic flexure underneath the right hemidiaphragm. No evidence for hilar prominence. Degenerative changes dorsal spine. IMPRESSION: 1. Patchy basilar infiltrates persist.
[2018-02-10] MEDS: IPRATROPIUM-ALBUTEROL 3 ML NEB INHALATION SCH (07:43)
[2018-02-10] MEDS ORDERED: FUROSEMIDE 10 MG/ML 2 ML VIAL IV ONE (08:30)
[2018-02-10] MEDS ORDERED: DEXTROSE 5% IN WATER 100 ML with AMIODARONE 150 MG IV ONE (08:30)
[2018-02-10] MEDS: INSULIN ASPART 100 UNIT/ML 1 ML 10 ML VIAL SQ SCH ×2 (08:41→12:55)
[2018-02-10] MEDS: PANTOPRAZOLE 40 MG TABLET PO SCH (08:42)
[2018-02-10] MEDS: amLODIPine 5 MG TAB PO SCH (08:42)
[2018-02-10] MEDS: CLOPIDOGREL 75 MG TAB PO SCH (08:42)
[2018-02-10] MEDS: ASPIRIN 325 MG TAB PO SCH (08:42)
[2018-02-10] MEDS: ATORVASTATIN 40 MG TAB PO SCH (08:42)
[2018-02-10] MEDS ORDERED: APIXABAN 2.5 MG TABLET PO SCH ×2 (09:00→21:00)
--- NOTE | 2018-02-10 09:40 | P.PN ---
Subjective Progress Note Date: 02/10/18 Principal diagnosis: Coronary artery arterial sclerosis, history of coronary artery bypass grafting surgery in 1996, atherosclerosis of bypass grafts, hypertension, hyperlipidemia , osteoarthritis, history of benign prostatic hypertrophy and preoperative paroxysmal atrial fibrillation. POD #4 redo sternotomy, off-pump CABG 3 with a reverse saphenous vein graft to the posterior descending coronary artery, left radial artery to the left anterior descending coronary artery with a T graft left radial artery to the diagonal coronary artery. Endovascular vein harvest of the right greater saphenous vein. Endovascular left radial artery harvest. Intraoperative transesophageal echocardiogram. Patient is sitting up to the bedside chair, he is in no acute distress. He remains complaining of numbness to his right hand pinky finger, no limited range of motion. He denies any complaints of shortness of breath or pain at this time. Currently he is on room air oxygen saturation is 93%. Achieving 1000 mL on his incentive spirometry. He reports that he had his first postop shower, and walked several times in the intensive care unit all way yesterday with minimal assistance. He did go into atrial fibrillation this morning with heart rate in the 80s to 90s. Bedside telemetry showing atrial fibrillation heart rate 93 BPM Objective - Vital Signs Vital signs: Vital Signs Temp 98.5 F 02/10/18 04:00 Pulse 102 H 02/10/18 07:53 Resp 26 H 02/10/18 06:00 BP 139/75 02/10/18 06:00 Pulse Ox 96 02/10/18 04:00 Intake & Output 02/09/18 02/10/18 02/10/18 18:59 06:59 18:59 Intake Total 720 Output Total 1450 200 Balance -730 -200 Weight 87 kg Intake: Oral 720 Output: Urine 1450 200 Other: Voiding Method Indwelling Catheter Indwelling Catheter # Voids 1 0 ABP, PAP, CO, CI - Last Documented Arterial Blood Pressure 88/54 Pulmonary Artery Pressure 20/13 Cardiac Output 6.8 Cardiac Index 3.3 - Constitutional General appearance: Present: cooperative, no acute distress - Respiratory Details: Lungs sounds essentially clear throughout, diminished to his bilateral bases. Respirations are symmetrical and nonlabored. Oxygen saturation is 93% on room air. He is achieving 1000 mL on his incentive spirometry. - Cardiovascular Details: Irregular rhythm with controlled rate. S1 and S2 present, negative for S3, gallop or murmur. Sternum is stable. Bedside telemetry showing atrial fibrillation heart rate 93. +1 edema to his bilateral lower extremities. Heart hugger is in place and he is demonstrating appropriate use. Knee-high SAMIA hose and sequential compression devices in place to his bilateral lower extremities. - Gastrointestinal Gastrointestinal Comment(s): Abdomen is soft, nontender and nondistended. Hypoactive bowel sounds to all 4 abdominal quadrants. Tolerating oral intake. Passing flatus. - Genitourinary Genitourinary Comment(s): Voiding clear yellow urine. 500 mL of urine output in the last 8 hours. - Integumentary Integumentary Comment(s): Skin is warm and dry. No clubbing or cyanosis present. Midline sternal incision is clean, dry and approximated. No drainage or redness present. Right leg EVH site clean, dry and approximated. No drainage or redness present. Left forearm radial artery harvest sites clean, dry and approximated. No drainage or redness present. He is a small soft palpate ecchymotic area to his left forearm. - Neurologic Neurologic: Present: CNII-XII intact - Musculoskeletal Musculoskeletal: Present: gait normal, strength equal bilaterally - Psychiatric Psychiatric: Present: A&O x's 3, appropriate affect, intact judgment & insight - Allied health notes Allied health notes reviewed: nursing - Labs CBC & Chem 7: 02/10/18 04:36 02/10/18 04:36 Labs: Abnormal Lab Results - Last 24 Hours (Table) 02/09/18 02/09/18 02/09/18 Range/Units 07:53 12:22 17:00 RBC (4.30-5.90) m/uL Hgb (13.0-17.5) gm/dL Hct (39.0-53.0) % Plt Count (150-450) k/uL BUN (9-20) mg/dL Glucose 114 H (74-99) mg/dL POC Glucose (mg/dL) 107 H 124 H (75-99) mg/dL Calcium (8.4-10.2) mg/dL 02/09/18 02/10/18 02/10/18 Range/Units 21:24 04:36 04:36 RBC 3.32 L (4.30-5.90) m/uL Hgb 9.8 L (13.0-17.5) gm/dL Hct 29.9 L (39.0-53.0) % Plt Count 147 L (150-450) k/uL BUN 23 H (9-20) mg/dL Glucose 105 H (74-99) mg/dL POC Glucose (mg/dL) 143 H (75-99) mg/dL Calcium 8.2 L (8.4-10.2) mg/dL 02/10/18 Range/Units 07:05 RBC (4.30-5.90) m/uL Hgb (13.0-17.5) gm/dL Hct (39.0-53.0) % Plt Count (150-450) k/uL BUN (9-20) mg/dL Glucose (74-99) mg/dL POC Glucose (mg/dL) 110 H (75-99) mg/dL Calcium (8.4-10.2) mg/dL - Imaging and Cardiology Chest x-ray: report reviewed, image reviewed Assessment and Plan (1) Coronary artery disease Current Visit: Yes Status: Acute Code(s): I25.10 - ATHSCL HEART DISEASE OF [place] CORONARY ARTERY W/O ANG PCTRS SNOMED Code(s): 89669246 (2) Hypertension Current Visit: Yes Status: Acute Code(s): I10 - ESSENTIAL (PRIMARY) HYPERTENSION SNOMED Code(s): 00278216 (3) Hyperlipidemia Current Visit: Yes Status: Acute Code(s): E78.5 - HYPERLIPIDEMIA, UNSPECIFIED SNOMED Code(s): 75797220 (4) BPH (benign prostatic hyperplasia) Current Visit: Yes Status: Acute Code(s): N40.0 - BENIGN PROSTATIC HYPERPLASIA WITHOUT LOWER URINRY TRACT SYMP SNOMED Code(s): 967212454 (5) Osteoarthritis Current Visit: Yes Status: Acute Code(s): M19.90 - UNSPECIFIED OSTEOARTHRITIS, UNSPECIFIED SITE SNOMED Code(s): 158989840 (6) History of coronary artery bypass graft x 3 Current Visit: Yes Status: Acute Code(s): Z95.1 - PRESENCE OF AORTOCORONARY BYPASS GRAFT SNOMED Code(s): 965610419 (7) Paroxysmal atrial fibrillation Current Visit: Yes Status: Acute Code(s): I48.0 - PAROXYSMAL ATRIAL FIBRILLATION SNOMED Code(s): 353586280 Plan: 1. Continue aspirin, statin, and beta mateo. We will increase his beta mateo as tolerated. 2. Continue Norvasc 5 mg by mouth daily. Do not discontinue Norvasc, in place for radial artery spasm prevention. 3. Encourage use of his incentive spirometry every hour while awake. 4. Bronchodilator and pulmonary management recommendations per Dr. Liang. 5. Will monitor daily labs and x-rays. 6. GI prophylaxis with Protonix, DVT prophylaxis with subcu heparin and SCDs. 7. Insulin management per primary care service. 8. Increased activity as tolerated. PT/OT/cardiac rehab following. 9. Lasix 20 mg IV 1 now. 10. Continue amiodarone 400 mg by mouth twice a day, we will give amiodarone 150 mg IV bolus 1 now for atrial fibrillation prophylaxis. 11. We will restart the patient back on his home dose of Eliquis 2.5 mg PO twice a day. Discontinue Plavix and Heparin subcu. 12. More recommendations to follow based on patient's clinical course. Anticipate discharge home within the next 24 hours. Time with Patient: Greater than 30
--- NOTE | 2018-02-10 10:26 | P.DS ---
Providers Date of admission: 02/06/18 05:34 Expected date of discharge: 02/10/18 Attending physician: Juan Mckeon Consults: 02/06/18 14:16 Consult Physician Routine Consulting Provider: Johnson Liang Consult Reason/Comments: Orthodontic Band Maker Consult: post cardiac surgery Do you want consulting provider notified?: Yes Consult Physician Routine Consulting Provider: Ketan Manning Consult Reason/Comments: Medical Management Do you want consulting provider notified?: Yes Consult Physician Routine Consulting Provider: Jessica Riojas Consult Reason/Comments: Hand Grinder Consult: post cardiac surgery Do you want consulting provider notified?: Yes Primary care physician: Adonay Gandhi - Discharge Diagnosis(es) (1) Coronary artery disease Current Visit: Yes Status: Acute (2) Hypertension Current Visit: Yes Status: Acute (3) Hyperlipidemia Current Visit: Yes Status: Acute (4) BPH (benign prostatic hyperplasia) Current Visit: Yes Status: Acute (5) Osteoarthritis Current Visit: Yes Status: Acute (6) History of coronary artery bypass graft x 3 Current Visit: Yes Status: Acute (7) Paroxysmal atrial fibrillation Current Visit: Yes Status: Acute Hospital Course: FINAL DIAGNOSIS: 1. Coronary artery arterial sclerosis 2. History of coronary artery disease with a previous bypass grafting surgery in 1996 3. Atherosclerosis of bypass grafts 4. Hypertension 5. Hyperlipidemia 6. Osteoarthritis 7. History of benign prostatic hypertrophy 8. Preoperative paroxysmal atrial fibrillation PRINCIPAL PROCEDURE: 1. Redo sternotomy, off-pump CABG 3 with a reverse saphenous vein graft to the posterior descending coronary artery, left radial artery to the left anterior descending coronary artery with a T graft left radial artery to the diagonal coronary artery. 2. Endovascular vein harvest of the right greater saphenous vein. 3. Endovascular left radial harvest. 4. Intraoperative transesophageal echocardiogram. HISTORY OF PRESENT ILLNESS: This is an 82-year-old gentleman who is followed by Dr. Adonay Gandhi on an outpatient basis. His past medical history significant for coronary artery arterial sclerosis, history of coronary artery disease with a bypass grafting surgery in 1996, hypertension, hyperlipidemia, osteoarthritis , history of benign prostatic hypertrophy and preoperative paroxysmal atrial fibrillation. Recently, the patient had presented to Dr. Gandhi's office with angina symptoms and it was recommended to undergo a Cardiolite stress test. Subsequently a Cardiolite stress test was completed which showed significant areas of ischemia in the antral wall as well as the inferior lateral wall. He was seen and evaluated by Dr. AMBER Riojas from cardiology associates and was advised to undergo a coronary artery angiographically. On 01/15/2018 the patient underwent an elective cardiac catheterization which demonstrated him to have a 15% stenosis to his left main coronary artery, a totally occluded left anterior descending coronary artery after his diagonal branch which showed a 70- 80% stenosis, a ramus intermedius to be totally occluded, and 80% stenosis to his circumflex coronary artery and a totally occluded right coronary artery. The heart catheterization also demonstrated a saphenous vein graft to the PDA branch of the RCA to have an 80% stenosis to the proximal body, saphenous vein graft to the PLV branch to be totally occluded and his RIDLEY to his LAD graft which shown to be widely patent at its origin at the insertion site of the midportion there is a total occlusion. Due to the patient's recent symptoms, history of coronary artery disease and cardiac catheterization results a consult was placed to Dr. Juan Mckeon from cardiothoracic surgery to evaluate patient for possible redo myocardial revascularization surgery. Dr. Mckeon evaluated the patient and discussed the findings of his cardiac catheterization results with the patient and his and recommended a redo myocardial vascularization surgery. After explaining the risks and benefits to the patient the patient did wish to proceed with elective myocardial mandaen surgery. HOSPITAL COURSE: The patient was admitted to the hospital and after obtaining consent was taken to the operating room where Dr. Juan Mckeon performed a redo sternotomy, off-pump CABG 3 with a reverse saphenous vein graft to the posterior descending coronary artery, left radial artery to left anterior descending coronary artery with a T graft left radial artery to the diagonal coronary artery. He also underwent endovascular vein harvest of the right greater saphenous vein, endovascular harvest of the left radial artery and an intraoperative transesophageal echocardiogram. At the conclusion of the surgery the patient was subsequently transferred to the cardiovascular intensive care unit where he was recovered, monitored hemodynamically and where he progressed cardiac rehabilitation phase 1. He was extubated, all lines, tubes and supportive drips were discontinued when appropriate and transfer orders were placed to [address] [place] [address] cardiac stepdown unit for further rehabilitation and monitoring needs. Due to lack of bed availability on the cardiac care stepdown unit the patient was kept as an overflow patient in the intensive care unit. His oxygen was weaned off and he was maintaining good oxygen saturations on room air, he continued to work with physical and occupational therapy and has been tolerating an oral diet. His pain is well controlled and he is ready to be discharged home with [facility] health care on postoperative day #4. He has received written and verbal instructions regarding his medications, activity restrictions, signs and symptoms requiring physician notification and his follow-up appointments. COMPLICATIONS: There were no postoperative complications. CONSULTATIONS: 1. Dr. Liang and for pulmonary and ventilator management. 2. Dr. AMBER Riojas for cardiology management 3. Dr. Manning for medical management. DISCHARGE INSTRUCTIONS: 1. No driving for 4 weeks, or until physician gives their ok. 2. The patient should sleep in their own bed, no medical bed needed. 3. Stairs are not an issue. If the bedroom is upstairs, it is advised that the patient go up at night and down in the morning for the first week. Go slowly, using handrail and take 1 step at a time. 4. SAMIA hose are to be worn for 30 days or until physician discontinues. 5. Heart hugger is to be worn 100% of the time until physician discontinues.( except when showering) 6. No lifting, pushing, or pulling more than 10 pounds for 12 weeks. The physician will advise of any restriction changes. 7. The patient is expected to continue the prescribed walking program. 8. Continue pain control per as needed orders. 9. Continue with incentive spirometry and splinting/heart hugger until otherwise directed by the physician. 10. Must shower daily using liquid antibacterial soap and a separate white washcloth for each individual incision. 11. Routine sternal incision care, no ointments, lotions or powders on the incisions. 12. Please notify surgeon/nurse practitioner for temperature greater than 101F or purulent drainage from incisions 13. Prescriptions for first 30 days given per cardiac surgery service. After 30 days, all prescription refills obtained through cardiology/primary care physician. 14. A red arm and has been placed on this patient it should be worn for 30 days post surgery and will be removed by the cardiothoracic surgeons. If an ER visit is necessary, please make sure the number on the red arm band is called. HOME HEALTH SERVICES TO PROVIDE: RN SKILLED HOME CARE SERVICES FOR POST-OP SURGICAL PATIENTS WITH THE FOLLOWING: Coronary Artery Bypass Surgery (CABG), Mitral Valve Replacement/ Repair ( MVR), Aortic Valve Replacement/Repair (AVR) RN TO CONTINUE EDUCATION FROM ``ROAD TO A HEALTH HEART PATIENT EDUCATION MANUAL" (GIVEN TO PATIENT IN THE HOSPITAL) MEDICATION RECONCILIATION WITH EDUCATION NEEDED ON FIRST HOME VISIT EMPHASIZE IMPORTANCE OF WEARING BREAST SUPPORT/HEART HUGGER ENCOURAGE USE OF INCENTIVE SPIROMETER 10 X EVERY HOUR WHILE AWAKE ENCOURAGE UTILIZATION OF LOWER EXTREMITY COMPRESSION STOCKINGS/SAMIA HOSE and ELEVATE LEGS ABOVE LEVEL OF HEART WHILE AT REST. ENCOURAGE AMBULATION 3-5x/day INCREASING TOLERATES, WHILE AVOID EXTREMES IN TEMPERATURE FREQUENCY: RN TO OPEN THE PATIENT WITHIN 24 HOURS OF DISCHARGE FROM THE HOSPITAL WITH TELEHEALTH INSTALLED AT [facility] [place], RN TO VISIT 2-3 X A WEEK FOR 4 WEEKS ESTABLISHED BY PATIENT NEEDS. LABORATORY: CBC, CMP TO BE DRAWN ON THE THIRD DAY HOME, 02/13/2018 (RAN STAT) FAX RESULTS TO [phone]. TELEHEALTH PARAMETERS: WEIGHT: NOTIFY MD OF WEIGHT GAIN OF 2 LBS IN 24 HOURS OR 5 LBS IN ONE WEEK HR: NOTIFY MD OF HR <55 BPM OR HR>100 BPM BP: NOTIFY MD IF BP <90/55 OR BP>140/100 O2 SAT: NOTIFY MD IF PO2<93% ON ROOM AIR SEND TELEHEALTH REPORT TO CARDIOLOGY TECHNOLOGIST AND CARDIOVASCULAR SURGEON THE FIRST WEEK OF CARE AND THEN BI-WEEKLY. PLEASE ADDITIONALLY COMMUNICATE ANY ABNORMALS AND NEW FINDINGS TO THE SURGEONS OFFICE. Plan - Discharge Summary Discharge Rx Participant: Yes New Discharge Prescriptions: New Acetaminophen Tab [Tylenol] 500 mg PO Q6HR PRN tab PRN Reason: Fever and/ or Mild Pain Amiodarone [Cordarone] 400 mg PO BID #50 tab amLODIPine [Norvasc] 5 mg PO DAILY #30 tab Apixaban [Eliquis] 2.5 mg PO BID #60 tablet Aspirin 325 mg PO DAILY tab Atorvastatin [Lipitor] 40 mg PO DAILY #30 tab Metoprolol Tartrate [Lopressor] 25 mg PO BID #60 tab Sennosides-Docusate Sodium [Senokot-S] 2 each PO HS #14 tab Continue Omeprazole 20 mg PO DAILY Discontinued amLODIPine BESYLATE 5 mg PO HS Isosorbide Mononitrate [Isosorbide Mononitrate ER] 30 mg PO DAILY Apixaban [Eliquis] 2.5 mg PO DAILY Vit C/E/Zn/Coppr/Lutein/Zeaxan [Preservision Areds 2 Softgel] 1 each PO DAILY Simvastatin [Zocor] 20 mg PO HS Aspirin [Adult Low Dose Aspirin EC] 81 mg PO DAILY Metoprolol Tartrate [Lopressor] 12.5 mg PO DAILY #60 dose Discharge Medication List Omeprazole 20 mg PO DAILY 01/11/18 [History] Acetaminophen Tab [Tylenol] 500 mg PO Q6HR PRN tab 02/10/18 [Rx] Amiodarone [Cordarone] 400 mg PO BID #50 tab 02/10/18 [Rx] Apixaban [Eliquis] 2.5 mg PO BID #60 tablet 02/10/18 [Rx] Aspirin 325 mg PO DAILY tab 02/10/18 [Rx] Atorvastatin [Lipitor] 40 mg PO DAILY #30 tab 02/10/18 [Rx] Metoprolol Tartrate [Lopressor] 25 mg PO BID #60 tab 02/10/18 [Rx] Sennosides-Docusate Sodium [Senokot-S] 2 each PO HS #14 tab 02/10/18 [Rx] amLODIPine [Norvasc] 5 mg PO DAILY #30 tab 02/10/18 [Rx] Follow up Appointment(s)/Referral(s): Dottie Hoang NPC [Nurse Practitioner] - 02/15/18 2:00 pm Jessica Riojas MD [STAFF PHYSICIAN] - 1 Week Adonay Gandhi MD [Primary Care Provider] - 1 Week Juan Mckeon MD [STAFF PHYSICIAN] - 02/28/18 1:00 pm Johnson Liang DO [Doctor of Osteopathic Medicine] - 02/20/18 11:15 am [facility], [NON-STAFF] - 1 Week Ambulatory/Diagnostic Orders: Complete Blood Count w/diff [LAB.AMB] Time Frame: 02/13/18, Facility: [facility], Location[facility] Comprehensive Metabolic Panel [LAB.AMB] Time Frame: 02/13/18, Facility: [facility], Location: [facility] Discharge Disposition: HOME WITH HOME HEALTH SERVICES
--- NOTE | 2018-02-10 11:40 | PN ---
PROGRESS NOTE DATE OF SERVICE: February 10, 2018. This is a very pleasant 82-year-old male who was admitted back on February 06. The patient is postop day #4, status post redo 3 vessel bypass grafting. The patient had a postoperative ventilatory management with extubation successfully. He has a history of hypertension, hyperlipidemia, bypass grafting [place] [address] Montgomery, COY, and SANDOVAL. The patient will be discharged from the ICU later today by the cardiothoracic team. Currently, Mr. Pemberton is on room air. He is not receiving any IV fluids. His chest x-ray just shows some basilar atelectasis. He is feeling well. Denies any pain, discomfort. No difficulty breathing. Not coughing or wheezing. No nausea, vomiting or diarrhea. He will follow up with us in the office in a couple weeks. Current vital signs include a temperature which is 98.3, heart rate which is 85, respiratory 26, blood pressure 139/75 mean 96, 2 L saturation is 99% and room air saturation is 98%. Appears in no acute distress. HEENT examination is grossly unremarkable. Not requiring any supplemental oxygen at this time. Mucous membranes are moist. HEENT examination is unremarkable. Neck is supple. Full range of motion. No adenopathy or thyromegaly. Neck veins are flat. Cardiovascular examination reveals regular rhythm and rate. Heart rate about 85 beats per minute. It is regular. S1, S2 normal. No murmur. Lungs reveal relatively clear breath sounds. A few scattered rhonchi. No wheezes or crackles. Abdomen is soft. Bowel sounds are heard. Extremities are intact. No cyanosis, clubbing, or edema. Skin without rash. Neurologic examination is brief but nonfocal. Chest x-ray is reviewed. Shows some mild bibasilar atelectasis. White count 9.2, hemoglobin 9.8, hematocrit 29.9, platelet count a 147,000. Sodium, potassium, chloride, CO2 all normal. BUN and creatinine were 23 and 0.87. Anion gap is 6. Microbiologic studies are negative. ASSESSMENT: 1. Postop day 4, status post redo 3 vessel bypass grafting. 2. Routine postoperative ventilator management, resolved. 3. History of hypertension. 4. History of hyperlipidemia. 5. History of bypass grafting initially back in 1996. 6. History of coronary artery disease. 7. History of degenerative joint disease. PLAN: Dated February 10, 2018. The patient is doing well. The patient will likely be discharged from the ICU later today by cardiothoracic surgery. The patient will follow up in our office in a couple weeks. He will see either myself or Dr. Frank. We recommend ongoing use of the incentive spirometer. We will also recommend deep breathing, coughing and clearing of secretions. The patient will not need to be discharged home with any updrafts and will not need to be discharged home on any supplemental oxygen. No additional recommendations are made. Prognosis is good. MMODL / IJN: [id number] /
[2018-02-10 12:04] VITALS: BP 116/64; PULSE 65; RESP 21; TEMP 98
--- NOTE | 2018-02-10 14:52 | PN ---
PROGRESS NOTE This patient is status post coronary artery bypass surgery. Patient's clinical panels are reviewed. The patient had uneventful night. Denies any chest pain or shortness of breath. Vital signs are stable. First and second sounds are normal. Lungs are clear to auscultation and percussion. The patient is going to be discharged home today. MMODL / IJN: [id number] /
== END 2018-02-10 15:04 | disposition home health service (06) | DRG 236 ==
LOC: 2ORMAIN 05:34 → 2SICU 14:07
PROVIDERS: ADMIT Thoracic Surgery (Cardiothoracic Vascular Surgery); ATTEND Thoracic Surgery (Cardiothoracic Vascular Surgery)
PROC: 03BC4ZZ Excision of Left Radial Artery, Percutaneous Endoscopic Approach (ICD-10-PCS; 2018-02-06)
PROC: 06BP4ZZ Excision of Right Saphenous Vein, Percutaneous Endoscopic Approach (ICD-10-PCS; 2018-02-06)
PROC: B24BZZ4 Ultrasonography of Heart with Aorta, Transesophageal (ICD-10-PCS; 2018-02-06)
PROC: 0D9670Z Drainage of Stomach with Drainage Device, Via Natural or Artificial Opening (ICD-10-PCS; 2018-02-06)
PROC: 02110AW Bypass Coronary Artery, Two Arteries from Aorta with Autologous Arterial Tissue, Open Approach (ICD-10-PCS; principal; 2018-02-06 08:00)
PROC: 021009W Bypass Coronary Artery, One Artery from Aorta with Autologous Venous Tissue, Open Approach (ICD-10-PCS; 2018-02-06 08:00)
DX: I25.119 Atherosclerotic heart disease of native coronary artery with unspecified angina pectoris (principal); D62 Acute posthemorrhagic anemia; J98.11 Atelectasis; I25.719 Atherosclerosis of autologous vein coronary artery bypass graft(s) with unspecified angina pectoris; I25.82 Chronic total occlusion of coronary artery; D69.59 Other secondary thrombocytopenia; I48.0 Paroxysmal atrial fibrillation; I11.9 Hypertensive heart disease without heart failure; I35.1 Nonrheumatic aortic (valve) insufficiency; N40.0 Benign prostatic hyperplasia without lower urinary tract symptoms; I44.0 Atrioventricular block, first degree; E78.00 Pure hypercholesterolemia, unspecified; E78.5 Hyperlipidemia, unspecified; M17.0 Bilateral primary osteoarthritis of knee; Z79.01 Long term (current) use of anticoagulants; Z79.82 Long term (current) use of aspirin; Z79.899 Other long term (current) drug therapy; Z90.49 Acquired absence of other specified parts of digestive tract; Z87.891 Personal history of nicotine dependence; Z80.9 Family history of malignant neoplasm, unspecified
CPT/HCPCS: 71045; 71046; 80048; 80053; 82330; 82805; 83735; 85025; 85520; 85610; 85730; 86850; 86891; 86900; 86901; 86920; 88305; 94002; 94640

== ENCOUNTER → 2022-01-23 | Outpatient (CLI) | payer MEDICARE | END | disposition home or self-care (01) | LOC: LABPAT 15:04 | PROVIDERS: ATTEND Orthopaedic Surgery | DX: Z01.812 Encounter for preprocedural laboratory examination (principal); M17.11 Unilateral primary osteoarthritis, right knee; Z22.322 Carrier or suspected carrier of Methicillin resistant Staphylococcus aureus | CPT/HCPCS: 87070 ==

== ENCOUNTER → 2022-07-11 | Outpatient (CLI) | payer MEDICARE ==
[2022-07-12 02:13] LABS: Basophils # (A) 0.09 X 10*3/uL (0.00-0.10); Basophils % (A) 1.2 %; Eosinophils # (A) 0.25 X 10*3/uL (0.04-0.35); Eosinophils % (A) 3.3 %; HCT 42.5 % (39.6-50.0); HGB 12.5 g/dL (13.0-17.0); Immature Grans, Automated 0.3 %; Lymphocytes # (A) 1.86 X 10*3/uL (0.90-5.00); Lymphocytes % (A) 24.3 %; MCH 24.6 pg (27.0-32.0); MCHC 29.4 g/dL (32.0-37.0); MCV 83.5 fL (80.0-97.0); Mean Platelet Volume 12.5 fL (9.5-12.2); Monocytes # (A) 0.81 X 10*3/uL (0.20-1.00); Monocytes % (A) 10.6 %; NRBC Per 100 WBC 0 /100 WBCS (0.0-0.0); Neutrophils # (A) 4.63 X 10*3/uL (1.80-7.70); Neutrophils % (A) 60.3 %; Platelet Count 217 X 10*3/uL (140-440); RBC 5.09 X 10*6/uL (4.40-5.60); RDW 16.6 % (11.5-14.5); WBC 7.66 X 10*3/uL (4.50-10.00)
[2022-07-12 02:24] LABS: Prothrombin Time 11.3 sec (9.9-11.9)
[2022-07-12 03:24] LABS: African American GFR (CKD) 71.1 (60.0-200.0); Anion Gap 8.4 mmol/L (10.00-18.00); BUN/Creat Ratio 17.55 Ratio (12.00-20.00); Blood Urea Nitrogen 19.3 mg/dL (9.0-27.0); Calcium 9.2 mg/dL (8.7-10.3); Carbon Dioxide 26.6 mmol/L (20.0-27.5); Non-African American GFR(CKD) 61.3 (60.0-200.0); Potassium 4.1 mmol/L (3.5-5.5)
== END | disposition home or self-care (01) ==
LOC: LABPAT 13:42
PROVIDERS: ATTEND Orthopaedic Surgery
DX: Z01.812 Encounter for preprocedural laboratory examination (principal); M17.11 Unilateral primary osteoarthritis, right knee; Z22.322 Carrier or suspected carrier of Methicillin resistant Staphylococcus aureus
CPT/HCPCS: 80048; 85025; 85610; 87070

== ENCOUNTER 2022-07-25 08:19 | Observation (INO) | payer MEDICARE ==
--- NOTE | 2022-07-24 08:22 | P.HPOR ---
History of Present Illness H&P Date: 07/24/22 Chief Complaint: Right knee pain The patient is an 86-year-old male who presents with progressive right knee pain for the past several years worsening recently. He has buckling and painful catching. He has tried previous injections and medications without much relief. He does wear a brace. He notes his pain significantly limits his function and activity level. Review of Systems As per HPI Past Medical History Past Medical History: Atrial Fibrillation, Coronary Artery Disease (CAD), Chest Pain / Angina, Eye Disorder, GERD/Reflux, Hyperlipidemia, Hypertension, Osteoarthritis (OA) Additional Past Medical History / Comment(s): SSS/avoid vasovagal situations, glaucoma/dry macular degeneration bilaterally, BPH with surgery History of Any Multi-Drug Resistant Organisms: None Reported Past Surgical History: Appendectomy, Cholecystectomy, Coronary Bypass/CABG, Heart Catheterization, Hernia Repair, Prostate Surgery, Tonsillectomy Additional Past Surgical History / Comment(s): TURP, CABG 4 vessel 1997, bilateral inguinal hernia repairs, colonoscopy Past Anesthesia/Blood Transfusion Reactions: No Reported Reaction Additional Past Anesthesia/Blood Transfusion Reaction / Comment(s): Pt unsure if has had past blood transfusion. Smoking Status: Former smoker - Past Family History Father Family Medical History: Cancer Medications and Allergies Home Medications Medication Instructions Recorded Confirmed Type Omeprazole 20 mg PO QAM 01/11/18 07/21/22 History Acetaminophen Tab [Tylenol] 500 mg PO Q6HR PRN tab 02/10/18 07/21/22 Rx Apixaban [Eliquis] 2.5 mg PO BID #60 tablet 02/10/18 07/21/22 Rx Aspirin 81 mg PO QAM 07/21/22 07/21/22 History Atorvastatin [Lipitor] 40 mg PO W/SUPPER 07/21/22 07/21/22 History Cholecalciferol (Vitamin D3) 50 mcg PO HS 07/21/22 07/21/22 History [Vitamin D3 (50 Mcg = 2000 Iu) Chew Tab] Irbesartan 75 mg PO HS 07/21/22 07/21/22 History Metoprolol Tartrate [Lopressor] 12.5 mg PO QAM 07/21/22 07/21/22 History amLODIPine [Norvasc] 5 mg PO W/SUPPER 07/21/22 07/21/22 History Allergies Allergy/AdvReac Type Severity Reaction Status Date / Time No Known Allergies Allergy Verified 07/21/22 15:15 Physical Examination - Knee right Appearance: effusion Effusion grade: grade 1 Valgus alignment in stance: 5 degrees Tenderness with palpation: anterior, lateral Pain: throughout ROM Gait: limping ROM: extension: -15 degrees ROM: flexion: 120 degrees Crepitus with motion: Yes Strength: extension: 5/5 Strength: flexion: 5/5 Patella exam: Q angle 10 degrees Meniscal tests: lateral meniscal tests: positive, lateral joint line pain: positive Results The patient is a well-developed well-nourished male approximately 5 foot 11, 182 pounds of mesomorphic hands. HEENT exam is nonfocal, neck is supple. He has painless passive motion of the right hip. Straight leg raise is negative. His distal neurovascular appears intact in the right lower extremity. - Diagnostic results Knee x-ray: image reviewed (3 views of the right knee obtained the office show severe lateral and patellofemoral compartment osteoarthrosis.) Assessment and Plan Assessment: Right knee severe lateral and patellofemoral compartment osteoarthrosis Heart disease on anticoagulation Plan: I talked to the patient with regarding his condition along with treatment options. At this point he is quite symptomatic and limited because of pain related to his right knee osteoarthrosis despite conservative measures. After thorough discussion of the procedure with surgery. We'll plan to proceed with right total knee arthroplasty. We'll reinstitute his anticoagulation postoperatively.
[~2022-07-25 08:19] MED LIST changes: +ACETAMINOPHEN TAB 500 MG TAB PO PRN; -ALBUMIN HUMAN 25% 50 ML IV ONE; -ALBUMIN HUMAN 5% 500 ML IVPB ONE; -ASPIRIN 325 MG TAB PO ONE; -ATORVASTATIN 10 MG TAB PO ONE; -CALCIUM CHLORIDE 100 MG/ML 10 ML SYRINGE IV ONE; -CARDIOPLEGIC SOLN (K+ 16 MEQ/L 1,000 ML with SODIUM BICARB (1 MEQ/ML) 20 ML, LIDOCAINE ... PERFUSION ONE; -CHLORHEXIDINE GLUCONATE 15 ML CUP MUCOUS MEM ONE; -CLEVIDIPINE BUTYRATE 25 MG in EMPTY BAG 1 BAG IV ONE; -DILTIAZEM 50 MG in SODIUM CHLORIDE 0.9% 40 ML IV ONE; -HEPARIN SODIUM 1,000 UN/ML (10ML VL) IV ONE; -HEPARIN SODIUM,PORCINE 5,000 UNIT in SODIUM CHLORIDE 0.9% 500 ML 500 ML IV ONE; -INSULIN REGULAR 100 UNIT in SODIUM CHLORIDE 0.9% 100 ML IV ONE; -LACTATED RINGERS 1,000 ML IV ONE; -MAGNESIUM SULFATE MG 500 MG/ML IV ONE; -MANNITOL 25% 12.5 GM/50 ML VIAL IV ONE; +MELOXICAM 7.5 MG TAB PO PRN; -METOPROLOL TARTRATE 12.5 MG TAB PO ONE; -MUPIROCIN 2% OINT 22 GM TUBE NASAL ONE; -NITROGLYCERIN-D5W PMX 25 MG/250 ML BTL IV ONE; -NITROGLYCERIN-D5W PMX 50 MG in DEXTROSE/WATER 1 250ML.BAG IV ONE; -NOREPINEPHRINE 4 MG in SODIUM CHLORIDE 0.9% 250 ML IV ONE; -PAPAVERINE 360 MG in SODIUM CHLORIDE 0.9% 90 ML IV ONE; -PHENYLEPHRINE 40 MG in SODIUM CHLORIDE 0.9% 250 ML IV ONE; -PHENYLEPHRINE-0.9% NACL SYG 1 MG/10 ML SYRINGE IV ONE; -PROPOFOL 1,000 MG/100 ML VIAL IV ONE; -PROTAMINE SULFATE 10 MG/ML 25 ML VIAL IV ONE; -PROTAMINE SULFATE 250 MG in EMPTY BAG 1 BAG IV ONE; -SODIUM BICARB 8.4% 50 ML SYR (1 MEQ/ML) IV ONE; -SODIUM CHLORIDE 0.9% 1,000 ML IV ONE; -TRANEXAMIC ACID 2,000 MG in SODIUM CHLORIDE 0.9% 180 ML IV ONE; +TRANEXAMIC ACID IN NACL,ISO-OS 1,000 MG in SALINE 1 100ML.BAG IVPB PRN; -ceFAZolin 1,000 MG in SODIUM CHLORIDE 0.9% IRRIGATIO 1,000 ML IRRIGATION ONE; -ceFAZolin 2,000 MG in SODIUM CHLORIDE 0.9% 30 ML IVPB ONE
[2022-07-25] MEDS ORDERED: HYDROmorphone 0.5 MG/0.5 ML SYRINGE IVP PRN ×3 (08:32→12:00)
[2022-07-25] MEDS ORDERED: LIDOCAINE 1% (10MG/ML) FOR IV START INTRADERMA PRN (08:32)
[2022-07-25] MEDS ORDERED: MIDAZOLAM 2 MG/2 ML VIAL IV PRN (08:32)
[2022-07-25] MEDS ORDERED: DEXAMETHASONE SOD PHOSPHATE 4 MG/ML 1 ML VIAL IV ONE (08:32)
[2022-07-25] MEDS ORDERED: ONDANSETRON 4 MG/2 ML VIAL IVP ONE (08:32)
[2022-07-25] MEDS: LACTATED RINGERS 1,000 ML IV SCH (10:13)
[2022-07-25] MEDS ORDERED: fentaNYL (PF) 50 MCG/ML 2 ML AMP ONE (10:14)
[2022-07-25] MEDS ORDERED: MIDAZOLAM 2 MG/2 ML VIAL ONE (10:14)
[2022-07-25] MEDS ORDERED: TRANEXAMIC ACID IN NACL,ISO-OS 1,000 MG/100 ML BAG ONE (10:14)
[2022-07-25] MEDS ORDERED: diphenhydrAMINE 50 MG/ML 1 ML VIAL ONE (10:14)
[2022-07-25] MEDS ORDERED: ROPIVACAINE 1,100 MG, SODIUM CHLORIDE 0.9% 500 ML 330 ML, EMPTY PAIN BALL 1 EACH MISCELLANE PRN ×2 (10:19)
--- NOTE | 2022-07-25 10:21 | P.ANPRN ---
Procedure Note - Anesthesia - Nerve Block Performed Right Adductor Canal Time Out Performed: Yes (09:40) Date of Procedure: 07/25/22 Procedure Start Time: Procedure Stop Time: : Location of Patient: PreOp Indication: Acute Post-Operative Pain, Requested by Surgeon (Dr Mendez) Sedation Type: Sedate with meaningful contact maintained Preparation: Sterile Prep, Sterile Dressing Position: Supine Catheter: Indwelling Needle Types: Pajunk Needle Gauge: 21 Ultrasound used to visualize needle placement: Yes Ultrasound used to observe medication spread: Yes Injectate: 0.5% Ropivacaine (see comment for volume) (20cc) Blood Aspirated: No Pain Paresthesia on Injection Noted: No Resistance on Injection: Normal Image Stored and Saved: Yes Events: Uneventful and Well Tolerated
--- NOTE | 2022-07-25 10:22 | P.ANPRN ---
Procedure Note - Anesthesia - Nerve Block Performed Right iPack Time Out Performed: Yes Date of Procedure: 07/25/22 Procedure Start Time: 09:52 Procedure Stop Time: 09:57 Location of Patient: PreOp Indication: Acute Post-Operative Pain, Requested by Surgeon (Dr Mendez) Sedation Type: Sedate with meaningful contact maintained Preparation: Sterile Prep Position: Supine Catheter: None Needle Types: Pajunk Needle Gauge: 21 Ultrasound used to visualize needle placement: Yes Ultrasound used to observe medication spread: Yes Injectate: 0.5% Ropivacaine (see comment for volume) (15cc +5cc PF Normal saline) Blood Aspirated: No Pain Paresthesia on Injection Noted: No Resistance on Injection: Normal Image Stored and Saved: Yes Events: Uneventful and Well Tolerated
[2022-07-25] MEDS ORDERED: ceFAZolin 1,000 MG in SODIUM CHLORIDE 0.9% 1,000 ML IRRIGATION ONE (10:51)
[2022-07-25] MEDS ORDERED: NALOXONE 0.4 MG/ML 1 ML VIAL IV PRN (12:00)
[2022-07-25] MEDS ORDERED: HYDROcodone/APAP 5-325MG 1 EACH TAB PO PRN (12:00)
[2022-07-25] MEDS ORDERED: MAGNESIUM HYDROXIDE 2,400 MG/10 ML CUP PO PRN (12:00)
--- NOTE | 2022-07-25 12:23 | P.OP ---
Date of Procedure: 07/25/22 Preoperative Diagnosis: Right knee severe tricompartmental osteoarthrosis Postoperative Diagnosis: Same Procedure(s) Performed: Right total knee arthroplastycementedposterior stabilized Implants: Depuy Attune size 7 cemented femoral component, size 7 cemented tibial component, 9 mm articular surface, 38 mm cemented patellar component. This is a posterior stabilized implant. Anesthesia: regional, spinal Surgeon: Lopez Mendez [employer] Guest Coordinator #1: Dain Sepulveda Estimated Blood Loss (ml): 50 Pathology: other (Bone fragments) Condition: stable Disposition: PACU Indications for Procedure: The patient's an 86-year-old male presents with progressive right knee pain secondary to osteoarthritis despite conservative measures. A discussion of the risks and benefits of operative intervention versus continued conservative measures was made with patient. He opted to proceed with surgery. Operative risks to include infection, neurovascular injury, development of blood clots, component loosening/failure and possible need for subsequent procedures was discussed. Informed consent was obtained. Operative Findings: As below Description of Procedure: The patient was brought to the operating room, and after induction of spinal anesthesia the right lower extremity was prepped and draped in a normal fashion. The tourniquet was inflated to 270 mm marker. A longitudinal incision extending 3 finger breaths above the superior pole of patella extending to the medial aspect the tibial tubercle was then made. The skin and subcutaneous tissues were divided sharply. Electrocautery was used for hemostasis. A medial parapatellar arthrotomy was performed. The medial soft tissues to include the superficial and deep portions of the medial collateral ligament were elevated hoang bperiosteally. The patella was everted. A portion of the retropatellar fat pad was excised sharply. The anterior cruciate ligament was sacrificed. Blunt retractors were placed. A starting hole was made in the distal femur 1 cm anterior to the posterior cruciate ligament origin. An intramedullary femoral guide was then inserted planning on 5 valgus distal cut with 9 mm distal resection. The cutting block was pinned in place. The distal cut was then made. The posterior referencing sizing guide was utilized. I felt size 7 was most appropriate. 3 of external rotation was built into the system and verified off the trans-epicondylar axis and the posterior condyles. The cutting block was pinned in place. The anterior, posterior, and chamfer cuts then made. Bone fragments were removed. The intercondylar guide was placed and the notch cut was made with a sagittal saw. The bone block was removed in one fragment. The trial component was then placed. There is good anterior to posterior and medial to lateral fit. The distal peg holes were drilled. The trial component was removed. Attention was then paid towards preparing the proximal tibia. An extra medullary guide was utilized in line with the tibial shaft and second metatarsal distally. I planned on 8 mm resection from the medial compartment. The cutting block was pinned in place. The proximal tibial cut was then made. The bone was removed in one fragment. The remnants of the medial and lateral menisci were excised at the capsular junction with electrocautery. The tibia sized most appropriately at size 7. The trial femoral and tibial components were placed along with a 9 mm articular surface. I was able to obtain full flexion and extension with internal and external rotation. After several flexion and extension cycles, the tibial rotation was marked with electrocautery line with the medial one third of the tibial tubercle. Attention was then paid towards preparing the patella. A patella reamer was utilized taking stem to 14 mm of bone stock. A good flush cut was made. The patella sized most appropriately 38 mm. The peg holes were drilled. The trial components placed. I had good patellofemoral tracking with no hands technique. The trial components were then removed. The tibia was prepared in the appropriate rotation with appropriate drill and keel punch. The posterior osteophytes were removed with a curved osteotome. The flexion and extension gaps were checked and felt to be symmetric at 9 mm. A trial components were then removed. The bony surfaces were prepared with pulsatile lavage and dried. The tibial component was then cemented place was fully seated. Excess cement was removed. The femoral component cemented place and was fully seated. Excess cement was r emoved. The trial 9 mm articular surface was placed and the knee was put in full extension. The patella component was cemented place. After the cement had sufficiently hardened, the knee was again taken through a range of motion. Again I was able to obtain full flexion and extension with varus and valgus stress. The trial 9 mm articular surface was removed and the final one inserted. This was fully seated. Care was taken to avoid any soft tissue interposition. Pulsatile lavage was again utilized. The medial parapatellar arthrotomy was closed with #2 Ethibond suture. The tourniquet was deflated with approximately 60 minutes total tourniquet time. Final hemostasis was obtained with the cautery. There was minimal bleeding therefore a deep drain was not placed. The subcutaneous tissues were reapproximated with interrupted 2-0 Vicryl sutures. The skin was reapproximated with 3-0 subcuticular strata fix suture. Skin tape and adhesive was applied. A sterile dressing was applied. The patient was awoken from sedation and transferred to recovery room in good condition. Blood loss was estimated at 50 mL. No complications were incurred. Sponge and needle counts were correct at the end of the case. Dain RICH assisted during the major components of this case to include exposure, bone resection, implantation, and closure.
--- NOTE | 2022-07-25 12:52 | XR ---
EXAMINATION TYPE: XR knee limited RT DATE OF EXAM: 07/25/2022 COMPARISON: None HISTORY: Postop TECHNIQUE: 2 view right knee FINDINGS: Tibial and femoral components have been placed. No acute fracture or dislocation is evident . Postsurgical soft tissue changes are present. Some vascular clips are present along the medial prox imal knee. IMPRESSION: 1. No acute fracture post knee replacement
[2022-07-25] MEDS: HYDROcodone/APAP 7.5-325MG 1 EACH TAB PO PRN (14:15)
[2022-07-25] MEDS ORDERED: ACETAMINOPHEN TAB 500 MG TAB PO PRN (19:01)
[2022-07-25] MEDS: ATORVASTATIN 40 MG TAB PO SCH ×2 (20:26→20:36)
[2022-07-25] MEDS: amLODIPine 5 MG TAB PO SCH ×2 (20:26→20:37)
[2022-07-25] MEDS: SENNOSIDES-DOCUSATE SODIUM 1 EACH TAB PO SCH (20:36)
[2022-07-25] MEDS: LOSARTAN 25 MG TAB PO SCH (20:36)
[2022-07-25] MEDS: APIXABAN 2.5 MG TABLET PO SCH (20:37)
--- NOTE | 2022-07-25 22:45 | P.CONS ---
History of Present Illness - Reason for Consult Consult date: 07/25/22 Medical management Requesting physician: Lopez Mendez - Chief Complaint Right knee surgery - History of Present Illness This is a pleasant 86-year-old patient who follows with Dr. Gandhi. Chronic stable medical conditions include atrial fibrillation, CAD with bypass in 1996, GERD, hyperlipidemia, hypertension, , macular degeneration, Patient is undergoing right total knee arthroplasty. Postprocedure laying in bed. Comforter. No nausea vomiting. At her baseline appetite is fair. No trouble with his bowels. No chest pain no shortness breath. Review of systems: GEN.: Tired EYES: None HEENT: Decreased hearing] NECK: None RESPIRATORY: None CARDIOVASCULAR: None GASTROINTESTINAL: None GENITOURINARY: None MUSCULOSKELETAL: Joint pain LYMPHATICS: None HEMATOLOGICAL: None PSYCHIATRY: None NEUROLOGICAL: None Past medical history to include: Atrial fibrillation, CAD with bypass in 1996, GERD, hypertension, hyperlipidemia, osteoarthritis, macular degeneration, Social history: Patient is a for one year. Nonsmoker. Alcohol occasionally. 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 EYES: Pupils equal. Conjunctiva normal. HEENT: External appearance of nose and ears normal, oral cavity grossly normal. NECK: JVD not raised; masses not palpable. HEART: First and second heart sounds are normal; no edema. LUNGS: Respiratory rate normal; clear to auscultation. ABDOMEN: Soft, nontender, liver spleen not palpable, no masses palpable. PSYCH: Alert and oriented x3; mood and affect normal. MUSCULOSKELETAL:No Clubbing/cyanosis;muscles-grossly intact. Right knee dressing. OA. NEUROLOGICAL: Cranial nerves grossly intact; no facial asymmetry, power and sensation grossly intact. LYMPHATICS: No lymph nodes palpable in the axilla and neck INVESTIGATIONS, reviewed in the clinical context: 07/11/2022: White count 7 bun 16 globin 12.5 platelets 217 potassium 4.1 creatinine 1.1 Assessment and plan: -Right total knee arthroplasty. Pain control. Eliquis for DVT prophylaxis -Persistent atrial fibrillation Eliquis. Lopressor -Essential hypertension Amlodipine. Lopressor. 8 be certain -CAD with history of bypass Lopressor aspirin Primary osteoarthritis Pain control Care was discussed with the patient. Questions answered. Resume eliquis when okay with Dr. Mendez. Thank you Dr. Mendez Past Medical History Past Medical History: Atrial Fibrillation, Coronary Artery Disease (CAD), Chest Pain / Angina, Eye Disorder, GERD/Reflux, Hyperlipidemia, Hypertension, Osteoarthritis (OA) Additional Past Medical History / Comment(s): SSS/avoid vasovagal situations, glaucoma/dry macular degeneration bilaterally, BPH with surgery History of Any Multi-Drug Resistant Organisms: None Reported Past Surgical History: Appendectomy, Cholecystectomy, Coronary Bypass/CABG, Heart Catheterization, Hernia Repair, Prostate Surgery, Tonsillectomy Additional Past Surgical History / Comment(s): TURP, CABG 4 vessel 1996, bilateral inguinal hernia repairs, colonoscopy Past Anesthesia/Blood Transfusion Reactions: No Reported Reaction Additional Past Anesthesia/Blood Transfusion Reaction / Comm: Pt unsure if has had past blood transfusion. Smoking Status: Never smoker - Past Family History Father Family Medical History: Cancer Medications and Allergies Home Medications Medication Instructions Recorded Confirmed Type Omeprazole 20 mg PO QAM 01/11/18 07/25/22 History Acetaminophen Tab [Tylenol] 500 mg PO Q6HR PRN tab 02/10/18 07/25/22 Rx Apixaban [Eliquis] 2.5 mg PO BID #60 tablet 02/10/18 07/25/22 Rx Aspirin 81 mg PO QAM 07/21/22 07/25/22 History Atorvastatin [Lipitor] 40 mg PO W/SUPPER 07/21/22 07/25/22 History Cholecalciferol (Vitamin D3) 50 mcg PO HS 07/21/22 07/25/22 History [Vitamin D3 (50 Mcg = 2000 Iu) Chew Tab] Irbesartan 75 mg PO HS 07/21/22 07/25/22 History Metoprolol Tartrate [Lopressor] 12.5 mg PO QAM 07/21/22 07/25/22 History amLODIPine [Norvasc] 5 mg PO W/SUPPER 07/21/22 07/25/22 History Allergies Allergy/AdvReac Type Severity Reaction Status Date / Time No Known Allergies Allergy Verified 07/25/22 08:45 Physical Exam Vitals: Vital Signs Temp Pulse Pulse Resp BP Pulse Ox 07/25/22 19:47 97.8 F 58 L 17 137/70 97 07/25/22 17:00 97.4 F L 51 L 18 165/80 96 05/16/23 15:15 72 16 141/76 99 07/25/22 14:15 65 16 140/77 100 07/25/22 13:45 58 L 16 133/73 100 07/25/22 13:15 54 L 16 112/56 99 07/25/22 12:51 54 L 15 125/67 99 07/25/22 12:36 52 L 16 121/67 100 07/25/22 12:21 97.0 F L 71 16 114/74 97 07/25/22 10:10 48 L 16 121/66 100 07/25/22 10:00 59 L 16 120/58 100 07/25/22 09:42 57 L 16 139/69 100 07/25/22 08:41 97.6 F 58 L 16 153/79 97 Intake and Output 07/25/22 07/25/22 07/25/22 06:59 14:59 22:59 Intake Total 801 Output Total 50 400 Balance 751 -400 Intake: IV 801 Output: Urine 400 Estimated Blood Loss 50 Other: # Voids 1 Weight 81.6 kg 81.6 kg
[2022-07-26] MEDS: PANTOPRAZOLE 40 MG TABLET PO SCH (07:04)
--- NOTE | 2022-07-26 07:05 | P.PN ---
Progress Note - Text Progress Note Date: 07/26/22 Postoperative day # 1 status post total knee arthroplasty, and adductor canal catheter placed for postoperative analgesia, currently at ropivacaine 0.2% 8 mL per hour and continuous infusion, visual analogue scale is 3/10, patient using oral pain medication for breakthrough pain. Assessment and plan= Acute postoperative pain, adductor canal catheter for pain control, pain is well controlled we'll continue the same management.
[2022-07-26] MEDS: LACTATED RINGERS 1,000 ML IV SCH (08:32)
[2022-07-26] MEDS: HYDROcodone/APAP 7.5-325MG 1 EACH TAB PO PRN ×2 (08:38→14:30)
[2022-07-26] MEDS: METOPROLOL TARTRATE 12.5 MG TAB PO SCH (08:38)
[2022-07-26] MEDS: APIXABAN 2.5 MG TABLET PO SCH ×2 (08:38→19:56)
[2022-07-26] MEDS: ASPIRIN 81 MG PO SCH (08:39)
[2022-07-26 10:58] LABS: Basophils # (A) 0.06 X 10*3/uL (0.00-0.10); Basophils % (A) 0.5 %; Eosinophils # (A) 0.02 X 10*3/uL (0.04-0.35); Eosinophils % (A) 0.2 %; HCT 37.2 % (39.6-50.0); HGB 11.3 g/dL (13.0-17.0); Immature Grans, Automated 0.6 %; Lymphocytes # (A) 1.36 X 10*3/uL (0.90-5.00); Lymphocytes % (A) 11.4 %; MCH 24.3 pg (27.0-32.0); MCHC 30.4 g/dL (32.0-37.0); Mean Platelet Volume 11.5 fL (9.5-12.2); Monocytes # (A) 1.34 X 10*3/uL (0.20-1.00); Monocytes % (A) 11.2 %; NRBC Per 100 WBC 0 /100 WBCS (0.0-0.0); Neutrophils # (A) 9.09 X 10*3/uL (1.80-7.70); Neutrophils % (A) 76.1 %; Platelet Count 196 X 10*3/uL (140-440); RBC 4.65 X 10*6/uL (4.40-5.60); RDW 16.2 % (11.5-14.5); WBC 11.94 X 10*3/uL (4.50-10.00)
--- NOTE | 2022-07-26 17:02 | P.PN ---
Subjective Progress Note Date: 07/26/22 Principal diagnosis: Right knee osteoarthritis Patient was seen at bedside this afternoon lying in semirecumbent position. Patient says his right knee is in a moderate amount of pain currently. Patient says he has urinated several times since surgery. Patient says he is following, however, patient says he has been passing gas. Patient says he does have a walker home. Patient says he is hoping to go to rehab upon discharge. Patient says he does live alone at home and lives in a two-story house which would make it difficult for him to go home right away on his own. Patient says he did get up with physical therapy today and walked around the room a little bit using the walker. Patient denies chest pain, fever, shortness of breath, nausea, oncology vision, loss of bowel/bladder control. Objective - Vital Signs Vital signs: Vital Signs Temp 97.9 F 07/26/22 14:00 Pulse 57 L 07/26/22 14:00 Resp 18 07/26/22 14:00 BP 117/59 07/26/22 14:00 Pulse Ox 96 07/26/22 07:39 FiO2 Intake & Output 07/25/22 07/26/22 07/26/22 18:59 06:59 18:59 Intake Total 801 Output Total 250 610 Balance 551 -610 Weight 81.6 kg Intake: IV 801 Output: Urine 200 610 Estimated Blood Loss 50 Other: # Voids 1 1 - Exam Right knee: Incision is clean, dry, and intact. The exofin fusion tape is in good condition. There is minimal soft tissue swelling and ecchymosis surrounding the medial and lateral aspects of the incision. Calf is soft, no tenderness with palpation. Plantar flexion, dorsiflexion, EHL, FHL are intact. Sensory exam to light touch throughout the extremity is intact, dorsal pedis pulses 2+. - Labs CBC & Chem 7: 07/26/22 06:39 Labs: Abnormal Lab Results - Last 24 Hours (Table) 07/26/22 Range/Units 06:39 WBC 11.94 H (4.50-10.00) X 10*3/uL Hgb 11.3 L (13.0-17.0) g/dL Hct 37.2 L (39.6-50.0) % MCH 24.3 L (27.0-32.0) pg MCHC 30.4 L (32.0-37.0) g/dL RDW 16.2 H (11.5-14.5) % Immature Gran # 0.07 H (0.00-0.04) X 10*3/uL Neutrophils # 9.09 H (1.80-7.70) X 10*3/uL Monocytes # 1.34 H (0.20-1.00) X 10*3/uL Eosinophils # 0.02 L (0.04-0.35) X 10*3/uL Assessment and Plan Assessment: 1. Right knee osteoarthritis - Postop day 1 status post right total knee arthroplasty Plan: 1. Right knee osteoarthritis - right total knee arthroplasty performed yesterday, 07/25/2022. Continue therapy daily. Pain medication as needed. Patient does have a walker once he is discharged from the the hospital. Plan for discharge to rehab tomorrow pending authorization. 2. Appreciate medical management 3. Pain management - [place] 4. GI prophylaxis - senna 5. DVT prophylaxis - eliquis 2.5 mg BID 6. PT/OT - weightbearing as tolerated with walker 7. Encourage incentive spirometer use 8. Discharge planning - Plan for discharge to rehab tomorrow pending autho rization. Time with Patient: Less than 30
[2022-07-26] MEDS: SENNOSIDES-DOCUSATE SODIUM 1 EACH TAB PO SCH (19:56)
[2022-07-26] MEDS: LOSARTAN 25 MG TAB PO SCH (19:56)
--- NOTE | 2022-07-26 20:22 | P.PN ---
Progress Note - Text Progress Note Date: 07/26/22 - Chief Complaint Right knee surgery This is a pleasant 86-year-old patient who follows with Dr. Gandhi. Chronic stable medical conditions include atrial fibrillation, CAD with bypass in 1996, GERD, hyperlipidemia, hypertension, , macular degeneration, Patient had right total knee arthroplasty. Postprocedure laying in bed. Comforter. No nausea vomiting. At her baseline appetite is fair. No trouble with his bowels. No chest pain no shortness breath. July 26: Reclining in bed. Comfortable. Had breakfast. Pain control. No nausea vomiting. Daughter the bedside. Looking at going to possible rehab. Active Medications Acetaminophen (Acetaminophen Tab 500 Mg Tab) 500 mg PO Q6HR PRN PRN Reason: Fever and/ or Mild Pain Hydrocodone Bitart/Acetaminophen (Hydrocodone/Apap 5-325mg 1 Each Tab) 1 each PO Q6HR PRN PRN Reason: Pain Scale 1 to 5 Stop: 08/24/22 12:01 Hydrocodone Bitart/Acetaminophen (Hydrocodone/Apap 7.5-325mg 1 Each Tab) 1 each PO Q6H PRN PRN Reason: Pain Scale 6 to 10 Stop: 08/24/22 12:01 Last Admin: 07/26/22 14:30 Dose: 1 each Amlodipine Besylate (Amlodipine 5 Mg Tab) 5 mg PO W/SUPPER [facility] Last Admin: 07/25/22 20:37 Dose: 5 mg Apixaban (Apixaban 2.5 Mg Tablet) 2.5 mg PO BID [facility]; Protocol Stop: 08/24/22 21:01 Last Admin: 07/26/22 19:56 Dose: 2.5 mg Aspirin (Aspirin 81 Mg) 81 mg PO QAM [facility] Last Admin: 07/26/22 08:39 Dose: 81 mg Atorvastatin Calcium (Atorvastatin 40 Mg Tab) 40 mg PO W/SUPPER [facility] Last Admin: 07/25/22 20:36 Dose: 40 mg Ropivacaine 1,100 mg/ Sodium Chloride 330 ml/ Bandage/Support Products 1 each 0 mg MISCELLANE Q2H PRN PRN Reason: Breakthrough Pain Stop: 08/24/22 10:20 Last Admin: 07/25/22 12:47 Dose: 1,100 mg Hydromorphone HCl (Hydromorphone 0.5 Mg/0.5 Ml Syringe) 0.5 mg IVP Q3HR PRN PRN Reason: Pain Scale 7 to 10 Stop: 08/24/22 12:01 Last Admin: 07/25/22 17:07 Dose: 0.5 mg Hydromorphone HCl (Hydromorphone 0.5 Mg/0.5 Ml Syringe) 0.25 mg IVP Q3HR PRN PRN Reason: Pain Scale 4 to 6 Stop: 08/24/22 12:01 Lactated Ringer's (Lactated Ringers) 1,000 mls @ 20 mls/hr IV .Q24H [facility] Stop: 08/24/22 08:33 Last Admin: 07/26/22 08:32 Dose: Not Given Lidocaine HCl (Lidocaine 1% (10mg/Ml) For Iv Start) 0.1 ml INTRADERMA PER PROTOCOL PRN PRN Reason: IV Start Stop: 08/24/22 08:33 Losartan Potassium (Losartan 25 Mg Tab) 25 mg PO [facility] Last Admin: 07/26/22 19:56 Dose: 25 mg Magnesium Hydroxide (Magnesium Hydroxide 2,400 Mg/10 Ml Cup) 2,400 mg PO DAILY PRN PRN Reason: Constipation Stop: 08/24/22 12:01 Metoprolol Tartrate (Metoprolol Tartrate 12.5 Mg Tab) 12.5 mg PO QAM [facility] Last Admin: 07/26/22 08:38 Dose: 12.5 mg Naloxone HCl (Naloxone 0.4 Mg/Ml 1 Ml Vial) 0.2 mg IV Q2M PRN PRN Reason: Opioid Reversal Stop: 08/24/22 12:01 Pantoprazole Sodium (Pantoprazole 40 Mg Tablet) 40 mg PO -BRKFST [facility] Last Admin: 07/26/22 07:04 Dose: 40 mg Senna/Docusate Sodium (Sennosides-Docusate Sodium 1 Each Tab) 2 each PO [facility] Stop: 08/24/22 21:01 Last Admin: 07/26/22 19:56 Dose: 2 each Past medical history to include: Atrial fibrillation, CAD with bypass in 1996, GERD, hypertension, hyperlipidemia, osteoarthritis, macular degeneration, Social history: Patient is a for one year. Nonsmoker. 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 EYES: Pupils equal. Conjunctiva normal. HEENT: External appearance of nose and ears normal, oral cavity grossly normal. NECK: JVD not raised; masses not palpable. HEART: First and second heart sounds are normal; no edema. LUNGS: Respiratory rate normal; clear to auscultation. ABDOMEN: Soft, nontender, liver spleen not palpable, no masses palpable. PSYCH: Alert and oriented x3; mood and affect normal. MUSCULOSKELETAL:No Clubbing/cyanosis;muscles-grossly intact. Right knee dressing. OA. INVESTIGATIONS, reviewed in the clinical context: July 26: White count 9.9 hemoglobin 11.3 platelets 196 07/11/2022: White count 7 bun 16 globin 12.5 platelets 217 potassium 4.1 creatinine 1.1 Assessment and plan: -Right total knee arthroplasty. Pain control. Eliquis for DVT prophylaxis -Persistent atrial fibrillation Eliquis. Lopressor -Essential hypertension Amlodipine. Lopressor. 8 be certain -CAD with history of bypass Lopressor aspirin Primary osteoarthritis Pain control Care was discussed with the patient. The daughter the bedside. Continue current medications. Looking to go to rehab. Thank you Dr. Mendez
[2022-07-27] MEDS: HYDROcodone/APAP 7.5-325MG 1 EACH TAB PO PRN (05:21)
[2022-07-27] MEDS: PANTOPRAZOLE 40 MG TABLET PO SCH (05:22)
[2022-07-27 07:26] VITALS: BP 122/60; PULSE 81; RESP 18; TEMP 98.5
[2022-07-27] MEDS: METOPROLOL TARTRATE 12.5 MG TAB PO SCH (07:28)
[2022-07-27] MEDS: APIXABAN 2.5 MG TABLET PO SCH (07:28)
[2022-07-27] MEDS: ASPIRIN 81 MG PO SCH (07:28)
--- NOTE | 2022-07-27 08:25 | P.DS ---
Providers Date of admission: 07/25/2022 Expected date of discharge: 07/27/22 Attending physician: Lopez Mendez Consults: 07/25/22 12:02 Consult Physician Routine Consulting Provider: Ketan Manning Consult Reason/Comments: Medical Management s/p right total knee arthroplasty Do you want consulting provider notified?: Yes [facility] Course: Date of admission: 07/25/2022 Date of discharge: 07/27/2022 Admission diagnosis: Right knee osteoarthritis Discharge diagnosis: Same Attending physician: Dr. Mendez Surgical procedures: Right total knee arthroplasty Brief history: Patient is a 86-year-old male with a history of progressive primary right knee osteoarthritis. At this point patient has failed conservative treatment measures and has opted to proceed with a elective right total knee arthroplasty. Hospital course: Details of patient's surgery can be found in operative report. Patient tolerated the procedure well and was subsequently transported to orthopedic floor. Patient's orthopeidc and medical care was provided daily. Patient had daily laboratory tests performed for evaluation of overall blood counts. Patient had daily physical therapy to include strengthening range of motion as well as education with walker ambulation. Patient was treated with Eliquis for their postoperative DVT prophylaxis during their inpatient stay. Patient was noted to have a relatively uneventful postoperative course. Patient reported satisfactory pain control with oral pain medications by postoperative day 2. Patient showed satisfactory progress with physical therapy. Patient moved steadily through the program and had no difficulty meeting the goals by postoperative day 2. Given patient's otherwise satisfactory course and having met physical therapy goals, plan is to discharge patient to rehab on postoperative day 2. Discharge condition/disposition: Patient will be discharged to rehab in stable condition. Discharge medications: Instructions are given on resumption of patient's normal daily medications per primary care recommendation, in addition patient will be prescribed [place] 7.5 mg/325 mg; senna; resume Eliquis 2.5 mg BID. Discharge instructions: 1. Wound care and infection precautions, keep incision dry and covered while showering, no lotions, creams, moisturizers. No soaking, tubs, pools, hottubs. Do not scrub over the incision. 2. Weight-bear as tolerated with walker / cane until follow-up. 3. Ice and elevate when necessary. Do not exceed 20 minutes per hour with ice pack. 4. Utilize compression sleeve until seen at first follow up appointment. 5. Visiting nursing care. 6. Home physical therapy including home CPM. 7. Pain meds and anticoagulants per prescription. 8. Pain medication has potential to cause constipation. Increase oral fluid and fiber intake. Contact primary care provider if you have not had a bowel movement within 48 hours after discharge 9. No anti-inflammatory medication until discussed at first post operative visit, this including Motrin, Aleve, Mobic, Diclofenac 10. Follow up in office at 2 weeks postop with Dickson Moncada PA-C / Dain Sepulveda PA-C 11. Follow up with your primary care doctor 7-10 days after discharge. 12. Contact [facility] with any questions, . Assessment: Right knee osteoarthritis Procedures: Right total knee arthroplasty Patient Condition at Discharge: Good Plan - Discharge Summary Discharge Rx Participant: Yes New Discharge Prescriptions: New Sennosides-Docusate Sodium [Senokot-S] 2 each PO HS tab HYDROcodone/APAP 7.5-325MG [[place] 7.5] 1 each PO Q6HR PRN #24 tab PRN Reason: Pain Continue Omeprazole 20 mg PO QAM Acetaminophen Tab [Tylenol] 500 mg PO Q6HR PRN tab PRN Reason: Fever and/ or Mild Pain Apixaban [Eliquis] 2.5 mg PO BID #60 tablet Irbesartan 75 mg PO HS amLODIPine [Norvasc] 5 mg PO W/SUPPER Metoprolol Tartrate [Lopressor] 12.5 mg PO QAM Atorvastatin [Lipitor] 40 mg PO W/SUPPER Aspirin 81 mg PO QAM Cholecalciferol (Vitamin D3) [Vitamin D3 (50 Mcg = 2000 Iu) Chew Tab] 50 mcg PO HS Discharge Medication List Omeprazole 20 mg PO QAM 01/11/18 [History] Acetaminophen Tab [Tylenol] 500 mg PO Q6HR PRN tab 02/10/18 [Rx] Apixaban [Eliquis] 2.5 mg PO BID #60 tablet 02/10/18 [Rx] Aspirin 81 mg PO QAM 07/21/22 [History] Atorvastatin [Lipitor] 40 mg PO W/SUPPER 07/21/22 [History] Cholecalciferol (Vitamin D3) [Vitamin D3 (50 Mcg = 2000 Iu) Chew Tab] 50 mcg PO HS 07/21/22 [History] Irbesartan 75 mg PO HS 07/21/22 [History] Metoprolol Tartrate [Lopressor] 12.5 mg PO QAM 07/21/22 [History] amLODIPine [Norvasc] 5 mg PO W/SUPPER 07/21/22 [History] HYDROcodone/APAP 7.5-325MG [[place] 7.5] 1 each PO Q6HR PRN #24 tab 07/27/22 [Rx] Sennosides-Docusate Sodium [Senokot-S] 2 each PO HS tab 07/27/22 [Rx] Follow up Appointment(s)/Referral(s): Dain Sepulveda PAC [PHYSICIAN SALES REPRESENT[employer]IVE [employer]] - 08/11/22 2:10 pm Adonay Gandhi MD [Primary Care Provider] - 1 Week Patient Instructions/Handouts: Knee Replacement (DC) Activity/Diet/Wound Care/Special Instructions: Orthopedic Discharge Instructions: 1. Wound care and infection precautions, keep incision dry and covered while showering, no lotions, creams, moisturizers. No soaking, pools, hot tubs. Do not scrub over incision. 2. Weight-bear as tolerated with walker / cane until follow-up. 3. Ice and elevate when necessary. Do not exceed 20 minutes per hour with ice pack. 4. Utilize compression sleeve until seen at first follow up appointment. 5. Pain meds and anticoagulants per prescription. 6. Pain medication has potential to cause constipation. Increase oral fluid and fiber intake. Contact primary care provider if you have not had a bowel movement within 48 hours after discharge. 7. No anti-inflammatory medication until discussed at first post operative visit, this including Motrin, Aleve, Mobic, Diclofenac. 8. Follow up in office at 2 weeks postop with Dickson Moncada PA-C / Dain Sepulveda PA-C 9. Follow up with your primary care doctor 7-10 days after discharge. 10. Contact [facility] with any questions, . Keep incision clean, dry, intact. While showering, cover fusion tape with Saran wrap. Keep fusion tape on until follow-up appointment in office in 2 weeks Discharge Disposition: TRANSFER TO SNF/ECF
--- NOTE | 2022-07-27 10:08 | P.PN ---
Subjective Progress Note Date: 07/27/22 Principal diagnosis: Right knee osteoarthritis Patient was seen at bedside this morning lying semirecumbent position eating breakfast. Patient says he is having some knee pain at this time and he was in a moderate amount of pain overnight. Patient says he did have a difficult time sleeping last night due to the pain. Patient says he is looking forward to going to rehab today. Patient says he has urinated since surgery. Patient says he has been using incentive spirometer since surgery. Patient says he has not had a bowel movement yet, however, patient says he has been passing gas. Patient denies chest pain, fever, short breath, nausea, vomiting, change in vision, also/bladder control. Objective - Vital Signs Vital signs: Vital Signs Temp 98.5 F 07/27/22 06:45 Pulse 81 07/27/22 06:45 Resp 18 07/27/22 06:45 BP 122/60 07/27/22 06:45 Pulse Ox 89 L 07/27/22 06:45 FiO2 Intake & Output 07/26/22 07/27/22 07/27/22 18:59 06:59 18:59 Other: # Voids 1 2 - Exam Right knee: Incision is clean, dry, and intact. The exofin fusion tape is in good condition. There is minimal soft tissue swelling and ecchymosis surrounding the medial and lateral aspects of the incision. Calf is soft, no tenderness with palpation. Plantar flexion, dorsiflexion, EHL, FHL are intact. Sensory exam to light touch throughout the extremity is intact, dorsal pedis pulses 2+. - Labs CBC & Chem 7: 07/26/22 06:39 Labs: Abnormal Lab Results - Last 24 Hours (Table) 07/26/22 Range/Units 06:39 WBC 11.94 H (4.50-10.00) X 10*3/uL Hgb 11.3 L (13.0-17.0) g/dL Hct 37.2 L (39.6-50.0) % MCH 24.3 L (27.0-32.0) pg MCHC 30.4 L (32.0-37.0) g/dL RDW 16.2 H (11.5-14.5) % Immature Gran # 0.07 H (0.00-0.04) X 10*3/uL Neutrophils # 9.09 H (1.80-7.70) X 10*3/uL Monocytes # 1.34 H (0.20-1.00) X 10*3/uL Eosinophils # 0.02 L (0.04-0.35) X 10*3/uL Assessment and Plan Assessment: 1. Right knee osteoarthritis - Postop day 2 status post right total knee arthroplasty Plan: 1. Right knee osteoarthritis - right total knee arthroplasty performed 07/25/2022. Continue therapy daily. Pain medication as needed. Patient does have a walker once he is discharged from the the hospital. Discharge to rehab today. 2. Appreciate medical management 3. Pain management - [place] 4. GI prophylaxis - senna 5. DVT prophylaxis - eliquis 2.5 mg BID 6. PT/OT - weightbearing as tolerated with walker 7. Encourage incentive spirometer use 8. Discharge planning - discharge to rehab today Time with Patient: Less than 30
--- NOTE | 2022-07-27 16:18 | P.PN ---
Progress Note - Text Progress Note Date: 07/27/22 - Chief Complaint Right knee surgery This is a pleasant 86-year-old patient who follows with Dr. Gandhi. Chronic stable medical conditions include atrial fibrillation, CAD with bypass in 1996, GERD, hyperlipidemia, hypertension, , macular degeneration, Patient had right total knee arthroplasty. Postprocedure laying in bed. Comforter. No nausea vomiting. At her baseline appetite is fair. No trouble with his bowels. No chest pain no shortness breath. July 26: Reclining in bed. Comfortable. Had breakfast. Pain control. No nausea vomiting. Daughter the bedside. Looking at going to possible rehab. July 27: In bed. Comfortable. Had a breakfast. Pain control. Patient accepted at rehab at [facility]. Questions answered Current medications reviewed Past medical history to include: Atrial fibrillation, CAD with bypass in 1996, GERD, hypertension, hype rlipidemia, osteoarthritis, macular degeneration, Social history: Patient is a for one year. Nonsmoker. Alcohol occasionally. 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 EYES: Pupils equal. Conjunctiva normal. HEENT: External appearance of nose and ears normal, oral cavity grossly normal. NECK: JVD not raised; masses not palpable. HEART: First and second heart sounds are normal; no edema. LUNGS: Respiratory rate normal; clear to auscultation. ABDOMEN: Soft, nontender, liver spleen not palpable, no masses palpable. PSYCH: Alert and oriented x3; mood and affect normal. MUSCULOSKELETAL:No Clubbing/cyanosis;muscles-grossly intact. Right knee dressing. OA. INVESTIGATIONS, reviewed in the clinical context: July 26: White count 9.9 hemoglobin 11.3 platelets 196 07/11/2022: White count 7 bun 16 globin 12.5 platelets 217 potassium 4.1 creatinine 1.1 Assessment and plan: -Right total knee arthroplasty. Pain control. Eliquis for DVT prophylaxis -Persistent atrial fibrillation Eliquis. Lopressor -Essential hypertension Amlodipine. Lopressor. 8 be certain -CAD with history of bypass Lopressor aspirin Primary osteoarthritis Pain control Discussed with patient. No new questions. Relevant to going to rehab. Thank you Dr. Mendez
== END 2022-07-27 10:41 ==
LOC: OR 08:19 → 4SSUR 12:26 → OR 07-26 08:30 → 4SSUR 07-26 08:30 → OR 07-27 10:41 → 4SSUR 07-27 10:41
PROVIDERS: ADMIT Orthopaedic Surgery; ATTEND Orthopaedic Surgery
DX: M17.11 Unilateral primary osteoarthritis, right knee (principal); G89.18 Other acute postprocedural pain; I25.10 Atherosclerotic heart disease of native coronary artery without angina pectoris; K21.9 Gastro-esophageal reflux disease without esophagitis; E78.5 Hyperlipidemia, unspecified; H35.30 Unspecified macular degeneration; I11.9 Hypertensive heart disease without heart failure; K59.00 Constipation, unspecified; I48.19 Other persistent atrial fibrillation; Z90.49 Acquired absence of other specified parts of digestive tract; Z95.1 Presence of aortocoronary bypass graft; Z87.891 Personal history of nicotine dependence; Z79.82 Long term (current) use of aspirin; Z79.899 Other long term (current) drug therapy; Z79.01 Long term (current) use of anticoagulants; Z80.9 Family history of malignant neoplasm, unspecified
CPT/HCPCS: 64448; 64999; 85025; 88300